=== PATIENT | male | born 1955 | race Hispanic/Latino ===

== ENCOUNTER → 2021-08-01 | Outpatient (CLI) | payer OTHER | END | disposition home or self-care (01) | LOC: SHCH 12:39 | PROVIDERS: ATTEND Internal Medicine | DX: I11.9 Hypertensive heart disease without heart failure (principal); I08.8 Other rheumatic multiple valve diseases; E11.9 Type 2 diabetes mellitus without complications; E78.5 Hyperlipidemia, unspecified | CPT/HCPCS: 93306 ==

== ENCOUNTER → 2022-07-28 | Outpatient (CLI) | payer OTHER ==
[~2022-07-28] VITALS: Ht 167.6 cm; Wt 75.8 kg
[~2022-07-28] MED LIST: AEC81 PO; AMLO-258 PO; ATOR40TA71 PO; BISA-151 PO; DULA1.5P SQ; ELTR50TA PO; EMPA1TAB7 PO; FERR-72 PO; HYDR25TA PO; ISOS30TA92 PO; LISI40TA9 PO; METO-391 PO; OMEP40CA21 PO
[2022-07-28 11:07] LABS: BASOPHILS % (AUTO) 0.2 % (0.0-5.0); EOSINOPHILS % (AUTO) 1.3 % (0.0-8.0); HEMATOCRIT 40.9 % (42-54); LYMPHOCYTES % (AUTO) 24.9 % (21.0-51.0); MEAN CORPUSCULAR HEMOGLOBIN 30.3 pg (27.0-33.0); MEAN CORPUSCULAR HGB CONC 33.7 g/dL (32.0-36.0); MEAN CORPUSCULAR VOLUME 89.9 fL (79-99); MONOCYTES % (AUTO) 5.4 % (3.0-13.0); PLATELET COUNT (AUTO) 72 K/uL (130-400); RED BLOOD CELL COUNT(AUTO) 4.55 MIL/uL (4.50-6.20); WHITE BLOOD COUNT (AUTO) 4.8 K/uL (4.8-10.8)
[2022-07-28 11:19] LABS: HEMOGLOBIN A1C 7.9 % (4.0-6.0)
[2022-07-28 11:21] LABS: ALBUMIN 3.3 g/dL (3.5-5.0); CREATININE 0.9 mg/dL (0.5-1.5); TOTAL PROTEIN, SERUM 7.5 g/dL (6.0-8.3)
[2022-07-28 11:25] LABS: INR 1.02 (0.85-1.15); PROTHROMBIN TIME 11.1 SEC (9.6-11.6)
[2022-07-28 11:29] LABS: ABG BASE EXCESS 0.7 mmol/L (-2.0-3.0); ABG HCO3 24.6 mmol/L (21.0-28.0); ABG OXYGEN SATURATION 97.7 % (95.0-99.0); ABG PCO2 37 mmHg (35-48)
[2022-07-28 11:42] LABS: B-TYPE NATRIURETIC PEPTIDE 95 pg/mL (0-100)
[2022-07-29 09:03] VITALS: BP 151/72
== END | disposition home or self-care (01) ==
LOC: DAH 10:00 → EDSTATUS 07-29 08:00
PROVIDERS: ATTEND Thoracic Surgery (Cardiothoracic Vascular Surgery)
DX: Z01.818 Encounter for other preprocedural examination (principal); I25.10 Atherosclerotic heart disease of native coronary artery without angina pectoris
CPT/HCPCS: 93880; 71045; 87426; 80061; 83036; 80053; 82803; 83880; 85025; 85610; 85730; 86850; 86900; 86901; 86923; 36415; 93005; 36600; 94010; 87641; A6260

== ENCOUNTER → 2022-09-17 | Outpatient (CLI) | payer OTHER ==
[~2022-09-17] MED LIST changes: -AEC81 PO; +ALBUMIN (HUMAN) 25% 200 ML IV ONE; -AMLO-258 PO; -ATOR40TA71 PO; -BISA-151 PO; -DULA1.5P SQ; -ELTR50TA PO; -EMPA1TAB7 PO; -FERR-72 PO; -HYDR25TA PO; -ISOS30TA92 PO; -LISI40TA9 PO; -METO-391 PO; -OMEP40CA21 PO
[2022-09-17 10:38] LABS: EOSINOPHILS % (AUTO) 2.2 % (0.0-8.0); HEMATOCRIT 38.5 % (42-54); LYMPHOCYTES % (AUTO) 22.2 % (21.0-51.0); MEAN CORPUSCULAR HEMOGLOBIN 28.2 pg (27.0-33.0); MEAN CORPUSCULAR HGB CONC 31.9 g/dL (32.0-36.0); MEAN CORPUSCULAR VOLUME 88.3 fL (79-99); MONOCYTES % (AUTO) 6.9 % (3.0-13.0); NEUTROPHILS % (AUTO) 68.5 % (40.0-77.0); PLATELET COUNT (AUTO) 216 K/uL (130-400); RED BLOOD CELL COUNT(AUTO) 4.36 MIL/uL (4.50-6.20); RED CELL DISTRIBUTION WIDTH 13.5 % (11.0-15.5); WHITE BLOOD COUNT (AUTO) 4.2 K/uL (4.8-10.8)
[2022-09-17 10:53] LABS: CREATININE 0.8 mg/dL (0.5-1.5)
[2022-09-17 10:58] LABS: INR 1.05 (0.85-1.15); PROTHROMBIN TIME 11.4 SEC (9.6-11.6)
[2022-09-17 10:59] LABS: PARTIAL THROMBOPLASTIN TIME 30.7 SEC (26.3-35.5)
== END | disposition home or self-care (01) ==
LOC: RAH 08:45
PROVIDERS: ATTEND Internal Medicine Gastroenterology
DX: Z01.818 Encounter for other preprocedural examination (principal); J90 Pleural effusion, not elsewhere classified; J98.11 Atelectasis; R18.8 Other ascites; Z98.890 Other specified postprocedural states
CPT/HCPCS: 36415; 71046; 76705; 80053; 85025; 85610; 85730; P9046

== ENCOUNTER → 2022-09-25 | Outpatient (CLI) | payer OTHER | END | disposition home or self-care (01) | LOC: RAH 06:49 | PROVIDERS: ATTEND Internal Medicine Gastroenterology | DX: R10.13 Epigastric pain (principal) | CPT/HCPCS: 78264; A9541 ==

== ENCOUNTER → 2022-10-27 | Outpatient (CLI) | payer OTHER ==
[2022-10-27 12:49] LABS: EOSINOPHILS % (AUTO) 2.1 % (0.0-8.0); HEMATOCRIT 37.1 % (42-54); LYMPHOCYTES % (AUTO) 25.7 % (21.0-51.0); MEAN CORPUSCULAR HEMOGLOBIN 27.2 pg (27.0-33.0); MEAN CORPUSCULAR HGB CONC 31.3 g/dL (32.0-36.0); MEAN CORPUSCULAR VOLUME 86.9 fL (79-99); MONOCYTES % (AUTO) 6.3 % (3.0-13.0); NEUTROPHILS % (AUTO) 65.7 % (40.0-77.0); PLATELET COUNT (AUTO) 106 K/uL (130-400); RED BLOOD CELL COUNT(AUTO) 4.27 MIL/uL (4.50-6.20); RED CELL DISTRIBUTION WIDTH 15.5 % (11.0-15.5); WHITE BLOOD COUNT (AUTO) 4.8 K/uL (4.8-10.8)
[2022-10-27 12:53] LABS: INR 0.99 (0.85-1.15); PROTHROMBIN TIME 10.8 SEC (9.6-11.6)
[2022-10-27 12:54] LABS: POTASSIUM 4.6 mmol/L (3.5-5.1)
== END | disposition home or self-care (01) ==
LOC: LAB 09:44
PROVIDERS: ATTEND Internal Medicine
DX: K62.5 Hemorrhage of anus and rectum (principal)
CPT/HCPCS: 36415; 80048; 85025; 85610

== ENCOUNTER → 2023-01-08 | Outpatient (CLI) | payer OTHER | END | disposition home or self-care (01) | LOC: RAH 10:12 | PROVIDERS: ATTEND Internal Medicine | DX: K74.60 Unspecified cirrhosis of liver (principal); D73.2 Chronic congestive splenomegaly; R18.8 Other ascites; R06.02 Shortness of breath | CPT/HCPCS: 71250 ==

== ENCOUNTER → 2023-02-05 | Outpatient (CLI) | payer OTHER | END | disposition home or self-care (01) | LOC: SHCH 10:34 | PROVIDERS: ATTEND Internal Medicine | DX: I08.2 Rheumatic disorders of both aortic and tricuspid valves (principal); E11.9 Type 2 diabetes mellitus without complications; E78.5 Hyperlipidemia, unspecified | CPT/HCPCS: 93306 ==

== ENCOUNTER → 2023-09-24 | Outpatient (CLI) | payer OTHER ==
[~2023-09-24] MED LIST changes: -ALBUMIN (HUMAN) 25% 200 ML IV ONE; +IOHEXOL 350 MG/ML 100ML INFUS..BTL IV ONE
== END | disposition home or self-care (01) ==
LOC: RAH 10:45
PROVIDERS: ATTEND Internal Medicine Gastroenterology
DX: R16.1 Splenomegaly, not elsewhere classified (principal); R10.9 Unspecified abdominal pain; R18.8 Other ascites; J90 Pleural effusion, not elsewhere classified
CPT/HCPCS: 74178; Q9967

== ENCOUNTER → 2023-12-04 | Outpatient (CLI) | payer OTHER ==
[~2023-12-04] MED LIST changes: +ALBUMIN (HUMAN) 25% 200 ML IV ONE; -IOHEXOL 350 MG/ML 100ML INFUS..BTL IV ONE
[2023-12-04 10:14] LABS: EOSINOPHILS # (AUTO) 0.05 K/uL (0.00-0.70); EOSINOPHILS % (AUTO) 1.7 % (0.0-8.0); HEMATOCRIT 33.6 % (42-54); IMMATURE GRANULOCYTE ABSOLUTE 0.01 K/uL (0-1); LYMPHOCYTES # (AUTO) 0.6 K/uL (1.0-4.8); LYMPHOCYTES % (AUTO) 20.8 % (21.0-51.0); MEAN CORPUSCULAR VOLUME 90.8 fL (79-99); MONOCYTES # (AUTO) 0.3 K/uL (0.1-1.0); MONOCYTES % (AUTO) 8.4 % (3.0-13.0); NEUTROPHILS # (AUTO) 2.1 K/uL (1.8-7.7); NEUTROPHILS % (AUTO) 68.8 % (40.0-77.0); PLATELET COUNT (AUTO) 91 K/uL (130-400); RED CELL DISTRIBUTION WIDTH 16.7 % (11.0-15.5)
[2023-12-04 10:28] LABS: INR 1.01 (0.85-1.15); PROTHROMBIN TIME 11.9 SEC (9.6-11.6)
[2023-12-04 10:30] LABS: PARTIAL THROMBOPLASTIN TIME 29.6 SEC (26.3-35.5)
[2023-12-04 10:31] LABS: ALBUMIN 2.7 g/dL (3.5-5.0); CREATININE 1.1 mg/dL (0.5-1.3); POTASSIUM 4.2 mmol/L (3.5-5.1); TOTAL PROTEIN, SERUM 6.6 g/dL (6.0-8.3)
[2023-12-04 11:16] LABS: BAND NEUTROPHILS % (MANUAL) 2 % (0-2); EOSINOPHILS % (MANUAL) 2 % (1-6); LYMPHOCYTES % (MANUAL) 34 % (22-44); MONOCYTES % (MANUAL) 6 % (2-9); SEGMENTED NEUTROPHILS % 56 % (40-70); TOTAL CELLS COUNTED 100
[2023-12-04 11:17] LABS: MAN.DIFF COMMENT-IMPRESSION MANUAL DIFFERENTIAL
[2023-12-04 11:18] LABS: PLATELET MORPHOLOGY COMMENT DECREASED; WBC MORPHOLOGY CONSISTENT W/DIFF
[2023-12-04 17:33] LABS: APPEARANCE BODY FLUID SLIGHTLY CLOUDY (CLEAR); COLOR,BODY FLUID YELLOW (LT YELLOW); SPECIMENTYPE,BODY FLUID ASCITES; TOTAL VOLUME,BODY FLUID 8200 mL
[2023-12-04 17:37] LABS: BODY FLUID RBC 0 /cu. mm.; BODY FLUID WBC 164 /cu. mm.
[2023-12-04 17:41] LABS: ALBUMIN,BODY FLUID 0.6 g/dL
[2023-12-04 17:46] LABS: TOTAL PROTEIN,BODY FLUID < 2.0 g/dL
[2023-12-04 18:15] LABS: BF LYMPHOCYTE 68 %; BF MESOTHELIAL 6 %; BF MONOCYTE 2 %; BF TOTAL CELLS COUNTED 100
== END | disposition home or self-care (01) ==
LOC: RAH 08:48
PROVIDERS: ATTEND Internal Medicine
DX: K70.31 Alcoholic cirrhosis of liver with ascites (principal); I85.10 Secondary esophageal varices without bleeding; I10 Essential (primary) hypertension; E11.9 Type 2 diabetes mellitus without complications; K21.9 Gastro-esophageal reflux disease without esophagitis; K59.04 Chronic idiopathic constipation; K57.30 Diverticulosis of large intestine without perforation or abscess without bleeding; J44.9 Chronic obstructive pulmonary disease, unspecified; I25.10 Atherosclerotic heart disease of native coronary artery without angina pectoris; Z98.890 Other specified postprocedural states; Z86.010 Personal history of colon polyps; Z79.4 Long term (current) use of insulin; Z79.82 Long term (current) use of aspirin; Z79.01 Long term (current) use of anticoagulants; Z79.899 Other long term (current) drug therapy
CPT/HCPCS: 49083; 84157; 80053; 85025; 89051; 85610; 85730; 87071; 87076; 87205; 82042; 36415; 88305; 88112; P9046; C1729

== ENCOUNTER → 2024-01-07 | Outpatient (CLI) | payer OTHER ==
[2024-01-07 08:56] LABS: EOSINOPHILS # (AUTO) 0.07 K/uL (0.00-0.70); HEMATOCRIT 32.5 % (42-54); IMMATURE GRANULOCYTE ABSOLUTE 0.01 K/uL (0-1); LYMPHOCYTES # (AUTO) 0.7 K/uL (1.0-4.8); LYMPHOCYTES % (AUTO) 20.1 % (21.0-51.0); MEAN CORPUSCULAR HGB CONC 32.9 g/dL (32.0-36.0); MEAN CORPUSCULAR VOLUME 94.2 fL (79-99); MONOCYTES # (AUTO) 0.2 K/uL (0.1-1.0); NEUTROPHILS # (AUTO) 2.5 K/uL (1.8-7.7); NEUTROPHILS % (AUTO) 71.6 % (40.0-77.0); PLATELET COUNT (AUTO) 81 K/uL (130-400); RED BLOOD CELL COUNT(AUTO) 3.45 MIL/uL (4.50-6.20); RED CELL DISTRIBUTION WIDTH 14.9 % (11.0-15.5); WHITE BLOOD COUNT (AUTO) 3.5 K/uL (4.8-10.8)
[2024-01-07 09:08] LABS: ALBUMIN 2.7 g/dL (3.5-5.0); BILIRUBIN,TOTAL 0.9 mg/dL (0.2-1.0); CREATININE 1.1 mg/dL (0.5-1.3); POTASSIUM 5.1 mmol/L (3.5-5.1); TOTAL PROTEIN, SERUM 6.7 g/dL (6.0-8.3)
[2024-01-07 09:28] LABS: INR 1.06 (0.85-1.15); PROTHROMBIN TIME 12.4 SEC (9.6-11.6)
[2024-01-07 13:26] LABS: ALBUMIN,BODY FLUID 0.6 g/dL
[2024-01-07 13:42] LABS: TOTAL PROTEIN,BODY FLUID < 2.0 g/dL
[2024-01-07 14:06] LABS: APPEARANCE BODY FLUID CLEAR (CLEAR); SPECIMENTYPE,BODY FLUID ASCITES
[2024-01-07 14:07] LABS: COLOR,BODY FLUID YELLOW (LT YELLOW); TOTAL VOLUME,BODY FLUID 6000 mL
[2024-01-07 14:32] LABS: BF LYMPHOCYTE 55 %; BF MACROPHAGE 1; BF MESOTHELIAL 18 %; BF MONOCYTE 11 %; BF OTHER CELLS 5; BF TOTAL CELLS COUNTED 100
[2024-01-07 14:42] LABS: BODY FLUID RBC 154 /cu. mm.; BODY FLUID WBC 154 /cu. mm.
== END | disposition home or self-care (01) ==
LOC: RAH 08:22
PROVIDERS: ATTEND Internal Medicine Gastroenterology
DX: K70.31 Alcoholic cirrhosis of liver with ascites (principal); E11.9 Type 2 diabetes mellitus without complications; I25.10 Atherosclerotic heart disease of native coronary artery without angina pectoris; Z86.010 Personal history of colon polyps; Z98.890 Other specified postprocedural states; K21.9 Gastro-esophageal reflux disease without esophagitis; I85.10 Secondary esophageal varices without bleeding; K59.04 Chronic idiopathic constipation; K44.9 Diaphragmatic hernia without obstruction or gangrene; K57.30 Diverticulosis of large intestine without perforation or abscess without bleeding; Z79.01 Long term (current) use of anticoagulants; Z79.82 Long term (current) use of aspirin; Z79.899 Other long term (current) drug therapy
CPT/HCPCS: 49083; 84157; 80053; 85025; 89051; 85610; 85730; 87071; 87205; 82042; 36415; 88305; 88112; P9046; C1729; 96365

== ENCOUNTER → 2024-02-18 | Outpatient (CLI) | payer OTHER | END | disposition home or self-care (01) | LOC: RAH 08:50 | PROVIDERS: ATTEND Internal Medicine Gastroenterology | DX: R13.10 Dysphagia, unspecified (principal) | CPT/HCPCS: 74220 ==

== ENCOUNTER → 2024-03-03 | Outpatient (CLI) | payer OTHER | END | disposition home or self-care (01) | LOC: RAH 08:27 | PROVIDERS: ATTEND Internal Medicine Gastroenterology | DX: K76.89 Other specified diseases of liver (principal); R16.1 Splenomegaly, not elsewhere classified | CPT/HCPCS: 76700 ==

== ENCOUNTER → 2024-04-21 | Outpatient (CLI) | payer OTHER ==
[2024-04-21 10:09] LABS: INR 1.21 (0.85-1.15); PROTHROMBIN TIME 12.9 SEC (9.6-11.6)
[2024-04-21 10:11] LABS: PARTIAL THROMBOPLASTIN TIME 30.9 SEC (26.3-35.5)
[2024-04-21 15:32] LABS: BODY FLUID RBC 0 /cu. mm.; BODY FLUID WBC 75 /cu. mm.
[2024-04-21 15:55] LABS: APPEARANCE BODY FLUID SLIGHTLY CLOUDY (CLEAR); COLOR,BODY FLUID YELLOW (LT YELLOW); SPECIMENTYPE,BODY FLUID ASCITES; TOTAL VOLUME,BODY FLUID 9800 mL
[2024-04-21 15:58] LABS: BF LYMPHOCYTE 76 %; BF MONOCYTE 11 %; BF TOTAL CELLS COUNTED 100
== END | disposition home or self-care (01) ==
LOC: RAH 09:19
PROVIDERS: ATTEND Internal Medicine Gastroenterology
DX: R18.8 Other ascites (principal); K74.60 Unspecified cirrhosis of liver; K21.9 Gastro-esophageal reflux disease without esophagitis; I25.10 Atherosclerotic heart disease of native coronary artery without angina pectoris; I12.9 Hypertensive chronic kidney disease with stage 1 through stage 4 chronic kidney disease, or unspecified chronic kidney disease; E11.22 Type 2 diabetes mellitus with diabetic chronic kidney disease; N18.9 Chronic kidney disease, unspecified; M19.90 Unspecified osteoarthritis, unspecified site; Z95.1 Presence of aortocoronary bypass graft; Z87.891 Personal history of nicotine dependence; Z79.82 Long term (current) use of aspirin; Z79.899 Other long term (current) drug therapy
CPT/HCPCS: 49083; 89051; 85610; 85730; 36415; P9046; C1729; 96365

== ENCOUNTER → 2024-05-26 | Outpatient (CLI) | payer OTHER ==
[2024-05-26 09:36] LABS: INR 1.14 (0.85-1.15); PROTHROMBIN TIME 12.2 SEC (9.6-11.6)
[2024-05-26 09:37] LABS: PARTIAL THROMBOPLASTIN TIME 31.2 SEC (26.3-35.5)
[2024-05-26 17:01] LABS: APPEARANCE BODY FLUID CLEAR (CLEAR); COLOR,BODY FLUID LT YELLOW (LT YELLOW); SPECIMENTYPE,BODY FLUID ASCITES; TOTAL VOLUME,BODY FLUID 9500 mL
[2024-05-26 17:08] LABS: BODY FLUID RBC 0 /cu. mm.; BODY FLUID WBC 175 /cu. mm.
[2024-05-26 17:27] LABS: BF EOSINOPHIL 1 %; BF LYMPHOCYTE 54 %; BF MACROPHAGE 39; BF MESOTHELIAL 1 %; BF TOTAL CELLS COUNTED 100
--- NOTE | 2024-05-30 09:57 | HMCIMG ---
US ABDOMINAL PARACENTESIS IR REASON: ASCITES TECHNIQUE: Paracentesis was performed with ultrasound guidance. The puncture site was selected in the Right lower quadrant and overlying skin prepped and draped in a sterile fashion. 1% Xylocaine infiltration was performed. Catheter was placed in the fluid using trocar technique. 9.5 L were removed. Fluid sample was submitted for laboratory evaluation. The patient showed no evidence of complication during the procedure. IMPRESSION: 1. Ultrasound-guided paracentesis.
== END | disposition home or self-care (01) ==
LOC: RAH 07:36
PROVIDERS: ATTEND Internal Medicine Gastroenterology
DX: R18.8 Other ascites (principal); K74.60 Unspecified cirrhosis of liver; I25.10 Atherosclerotic heart disease of native coronary artery without angina pectoris; I12.9 Hypertensive chronic kidney disease with stage 1 through stage 4 chronic kidney disease, or unspecified chronic kidney disease; E11.22 Type 2 diabetes mellitus with diabetic chronic kidney disease; N18.9 Chronic kidney disease, unspecified; K21.9 Gastro-esophageal reflux disease without esophagitis; M19.90 Unspecified osteoarthritis, unspecified site; E78.5 Hyperlipidemia, unspecified; Z87.891 Personal history of nicotine dependence; Z95.1 Presence of aortocoronary bypass graft; Z79.82 Long term (current) use of aspirin; Z79.899 Other long term (current) drug therapy
CPT/HCPCS: 49083; 89051; 85610; 85730; 87071; 87205; 36415; C1729

== ENCOUNTER → 2024-06-23 | Outpatient (CLI) | payer OTHER ==
[~2024-06-23] MED LIST changes: -ALBUMIN (HUMAN) 25% 200 ML IV ONE; +ALBUMIN HUMAN 25% 200 ML IV ONE
--- NOTE | 2024-06-23 10:45 | NUR ---
U/S GD PARACENTESIS PROCEDURE PERFORMED BY DR Gonzalo YU. PUNCTURE SITE RLQ AND PATIENT TOLERATED PROCEDURE WELL. TOTAL REMOVED 9.5 LITERS OF CLOUDY YELLOW FLUID ALBUMIN 25% 50 GRAMS IV GIVEN DURING PROCEDURE. SPECIMEN SENT TO LAB. END OF PROCEDURE AT 1015. CATHETER REMOVED AND DRESSING APPLIED. NO BLEEDING NOTED. DISCHARGE INSTRUCTIONS GIVEN TO PATIENT AND VERBALIZED UNDERSTANDING. DISCHARGED VIA AMBULATION AT 1045. AAO X3 WITH NO C/O PAIN.
--- NOTE | 2024-06-23 12:34 | HMCIMG ---
US ABDOMINAL PARACENTESIS IR HISTORY: Ascites COMPARISON: None TECHNIQUE: Informed consent was obtained. Risks and benefits were explained to the patient. A timeout was performed. Patient was prepped and draped in a sterile fashion. Local anesthetics was given as required. Under ultrasound guidance, ascites fluid was localized. Paracentesis was performed. FINDINGS: 9.5 L of yellowish fluid was aspirated. Less than 2 cc blood loss is noted. Patient tolerated procedure without complication. Patient left the department in good condition. IMPRESSION: 1. Uncomplicated ultrasound guidance paracentesis.
[2024-06-23 13:11] LABS: APPEARANCE BODY FLUID SLIGHTLY CLOUDY (CLEAR); COLOR,BODY FLUID YELLOW (LT YELLOW); SPECIMENTYPE,BODY FLUID ASCITES; TOTAL VOLUME,BODY FLUID 9500 mL
[2024-06-23 14:08] LABS: BODY FLUID RBC 84 /cu. mm.; BODY FLUID WBC 214 /cu. mm.
[2024-06-23 15:05] LABS: BF LYMPHOCYTE 26 %; BF MACROPHAGE 64; BF OTHER CELLS 2; BF TOTAL CELLS COUNTED 100
== END ==
LOC: RAH 08:56
PROVIDERS: ATTEND Internal Medicine Gastroenterology
DX: R18.8 Other ascites (principal); K74.60 Unspecified cirrhosis of liver; I25.10 Atherosclerotic heart disease of native coronary artery without angina pectoris; K21.9 Gastro-esophageal reflux disease without esophagitis; I12.9 Hypertensive chronic kidney disease with stage 1 through stage 4 chronic kidney disease, or unspecified chronic kidney disease; E11.22 Type 2 diabetes mellitus with diabetic chronic kidney disease; N18.9 Chronic kidney disease, unspecified; M19.90 Unspecified osteoarthritis, unspecified site; Z87.891 Personal history of nicotine dependence; Z79.82 Long term (current) use of aspirin; Z95.1 Presence of aortocoronary bypass graft; Z79.899 Other long term (current) drug therapy
CPT/HCPCS: 49083; 89051; 87071; 87205; P9046; C1729; 96365

== ENCOUNTER 2024-07-19 09:31 | Emergency (ER) | payer OTHER ==
[~2024-07-19] VITALS: Ht 167.6 cm; Wt 74.8 kg
--- NOTE | 2024-07-19 10:22 | EKG ---
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
--- NOTE | 2024-07-19 10:29 | HMCIMG ---
CHEST 1VW REASON: sob COMPARISON: 01/08/2023 FINDINGS: Single view of the chest was obtained. Lungs are clear. Heart size is normal. There is no pulmonary vascular congestion. Mediastinum and bony thorax appear unremarkable. There is been a previous median sternotomy. IMPRESSION: 1. No acute finding, no change.
--- NOTE | 2024-07-19 10:33 | ERN ---
ED Note History of Present Illness Stated Complaint: ABDOMINAL PAIN Chief Complaint: Abdominal Pain Time Seen by MD: 09:33 Dictation: This 68-year-old male with a history of cirrhosis of the liver presents in the emergency department with a gradual onset of increasing abdominal distention resulting in nausea, shortness of breath and decreased ability to do activities of daily living. He is unable to eat and developed severe nausea when he tries due to abdominal distention. He is having ankle swelling, orthopnea, and dyspnea with the exertion. He is unaware of fever. He is not passing any black or bloody stool. He has not had hematemesis he denies ear nose or throat symptoms or chest pressure other than that created by did a severe abdominal distention. He did have a paracentesis back in the 23 of June and is scheduled to follow up with the specialist next week but is unable to tolerate the abdominal distention today. The patient has a history of diabetes and hypertension has had coronary artery bypass grafting. He does not not smoke drink or use recreational drugs in his here with his Allergies: Coded Allergies: No Known Drug Allergies (Unverified Allergy, Unknown, 08/01/21) Home Meds No Active Prescriptions or Reported Meds Past Medical History Past Medical History: CAD, Diabetes-Type II, Heart Disease, Hypertension Additional Past Medical Hx: CIRRHOSIS Surgical History: CABG Review of System Dictation All pertinent systems reviewed, negative except as documented in the HPI The ROS is obtained from patient and GENERAL/CONSTITUTIONAL: Negative except as documented in HPI. ENT: Negative except as documented in HPI. CARDIOVASCULAR: Negative except as documented in HPI. RESPIRATORY: Negative except as documented in HPI. GASTROINTESTINAL: Negative except as documented in HPI. GENITOURINARY: Negative except as documented in HPI. MUSCULOSKELETAL: Negative except as documented in HPI. SKIN: Negative except as documented in HPI. NEUROLOGIC: Negative except as documented in HPI. Initial Vital Sign VS Vital Signs Date Time Temp Pulse Resp B/P (MAP) Pulse Ox O2 Delivery O2 Flow Rate FiO2 07/19/24 09:34 96.1 73 20 128/61 100 Room Air 0 07/19/24 09:36 21 Physical Exam Dictation VITAL SIGNS: note is made of triage vital signs CONSTITUTIONAL: This is an elderly patient who is very distended with tense ascites but able to hold conversation and maintaining his vital signs HEAD: Normocephalic, Atraumatic. EYES: Periorbital areas with no swelling, redness, or edema. Lids and lashes are normal. Conjunctival injection is absent. Sclera anicteric. Pupils equal, round, reactive to light. ENT: No nasal discharge noted. Posterior pharynx is without exudate, redness, swelling, masses, or evidence of obstruction. Uvula midline. Mucous membranes moist. NECK: Trachea midline, no masses palpated, and no cervical lymphadenopathy. No swelling. Supple, full range of motion without nuchal rigidity. No vertebral point tenderness. No meningismus. CHEST/AXILLA: Normal chest wall appearance and motion. No tenderness. No crepitus. CV: Regular rhythm, 1+ pretibial edema and 2+ ankle edema RESPIRATORY:Respiratory rate is normal. Bilateral equal breath sounds with good airflow. Fine crackles are heard at the bases No increased work of breathing, no retractions. ABDOMEN: Massive distention of the abdomen with no tenderness or rebound. Dull on percussion consistent with the ascites BACK: Inspection is normal. No midline tenderness is appreciated. The patient appears comfortable when moving. : No CVA tenderness or bladder tenderness. SKIN: Warm, dry, with normal turgor. Capillary refill less than 3 seconds. Normal color.No rash. No cellulitis or abscess. No evidence of acute injury. MS/Extremity: There is no calf tenderness. Baseline range of motion is noted in all 4 extremities. There are no deformities. NEURO: Awake and alert, lucid. Facies symmetric and speech is clear. Motor strength 5/5 in all extremities. Sensory grossly intact. PSYCH: Patient is appropriately attentive and cooperative without evidence of hallucination. Results (Laboratory/Radiology) Laboratory/Radiology Laboratory Tests Test 07/19/24 10:13 White Blood Count 3.6 K/uL (4.8-10.8) L Red Blood Count 3.52 MIL/uL (4.50-6.20) L Hemoglobin 10.4 g/dL (14.0-18.0) L Hematocrit 31.3 % (42-54) L Mean Corpuscular Volume 88.9 fL (79-99) Mean Corpuscular Hemoglobin 29.5 pg (27.0-33.0) Mean Corpuscular Hemoglobin Concent 33.2 g/dL (32.0-36.0) Red Cell Distribution Width 15.2 % (11.0-15.5) Platelet Count 164 K/uL (130-400) Mean Platelet Volume 10.6 fL (7.5-10.5) H Immature Granulocyte % (Auto) 0.3 % (0-1) Neutrophils (%) (Auto) 72.3 % (40.0-77.0) Lymphocytes (%) (Auto) 16.2 % (21.0-51.0) L Monocytes (%) (Auto) 6.7 % (3.0-13.0) Eosinophils (%) (Auto) 4.2 % (0.0-8.0) Basophils (%) (Auto) 0.3 % (0.0-5.0) Neutrophils # (Auto) 2.6 K/uL (1.8-7.7) Lymphocytes # (Auto) 0.6 K/uL (1.0-4.8) L Monocytes # (Auto) 0.2 K/uL (0.1-1.0) Eosinophils # (Auto) 0.15 K/uL (0.00-0.70) Basophils # (Auto) 0.01 K/uL (0.00-0.20) Absolute Immature Granulocyte (auto 0.01 K/uL (0-1) Nucleated Red Blood Cells 0.0 % (0.0-0.19) Prothrombin Time 11.7 SEC (9.6-11.6) H Prothromb Time International Ratio 1.05 (0.85-1.15) Activated Partial Thromboplast Time 30.4 SEC (26.3-35.5) Sodium Level 139 mmol/L (136-145) Potassium Level 5.4 mmol/L (3.5-5.1) H Chloride Level 106 mmol/L (101-111) Carbon Dioxide Level 28 mmol/L (21-32) Blood Urea Nitrogen 14 mg/dL (7-18) Creatinine 1.0 mg/dL (0.5-1.3) Glomerular Filtration Rate Calc 81 mL/min (>90) Random Glucose 165 mg/dL (70-105) H Total Calcium 8.7 mg/dL (8.5-10.1) Total Bilirubin 1.1 mg/dL (0.2-1.0) H Aspartate Amino Transf (AST/SGOT) 22 U/L (10-37) Alanine Aminotransferase (ALT/SGPT) 19 U/L (12-78) Alkaline Phosphatase 115 U/L (50-136) Total Protein 6.3 g/dL (6.0-8.3) Albumin 2.5 g/dL (3.5-5.0) L Labs Reviewed?: Yes EKG Comment: Time reviewed: 10:11 a.m. EKG number; 1 Rate and rhythm: Sinus arrhythmia at 71 beats per minute [place]: -10 Morphology: Very marked low voltage FL interval: normal QT interval: normal ST/Twaves: normal Impression: normal sinus rhythm without STEMI or ectopy Comparison EKG: none EKG INTERPRETATION by Dr. Jose J Harris ED Course ED Course Orders Procedure Category Date Status Time Comprehensive LAB 07/19/24 Complete Metabolic Panel 10:00 Cbc With Differential LAB 07/19/24 Complete 10:00 Pt And Ptt LAB 07/19/24 Complete 10:00 Chest 1vw RAD 07/19/24 Resulted 10:00 12 Lead Ekg Tracing- EKG 07/19/24 Complete Technical 10:00 Us Abdominal US 07/19/24 Resulted Paracentesis Ir 10:52 Albumin Human 25% PHA 07/19/24 Complete ([place]) 12:46 Albumin Human 25% PHA 07/19/24 In Process ([place]) 13:00 Current Medications Medications (Trade) Dose Ordered Sig/Dandre Route PRN Reason Start Time Stop Time Status Last Admin Dose Admin Albumin Human 100 ml @ 0 mls/hr AD IV 07/19/24 13:00 08/18/24 12:59 Albumin Human 200 ml @ As Directed STK-MED ONCE IV 07/19/24 12:46 07/19/24 12:47 DC Vital Signs Date Time Temp Pulse Resp B/P (MAP) Pulse Ox O2 Delivery O2 Flow Rate FiO2 07/19/24 12:31 97.5 71 16 123/53 100 Room Air* 0 21 07/19/24 09:36 96.6 73 20 128/61 100 Room Air* 0 21 07/19/24 09:34 96.1 73 20 128/61 100 Room Air 0 Medical Decision Making MDM INITIAL IMPRESSION Initial history and physical concerning for tense ascites with respiratory compromise secondary to the ascites. I do not suspect severe systemic volume overload or infection. He is alert and lucid and I do not suspect hepatic encephalopathy or GI bleed Contributing medical problems: None I have reviewed the triage nursing notes and vital signs. The patient is afebrile with acceptable oxygen saturation, heart rate and blood pressure. Initial plan: We will try to and arrange a paracentesis for today DATA REVIEW I have reviewed additional NN, repeat VS, and monitoring where indicated. Heart rate, blood pressure, and O2 saturation are acceptable. Pretty diagnostic results: Labs are consistent with cirrhosis. Other independent historian: none Review of external data: None. ED COURSE Interventions: The patient had paracentesis with removal of 11 L of fluid. Reassessment: He reports the shortness of breath and discomfort has completely resolved. He is currently receiving his albumin and will be discharged when that infusion is complete. DISPOSITION Final diagnostic impression: Tense ascites secondary to cirrhosis I discussed my findings, clinical impression and treatment recommendations with the patient. I have reviewed the social factors contributing to the patient's presentation and disposition planning. My final plan for disposition was made based upon clinical findings, response to treatment and discussion with the patient regarding management options. IR kindly consented to do a paracentesis on this patient Hospitalization is not indicated due to low risk of short term progression, complication, morbidity or mortality related to the current diagnosis At the time of discharge, the vital signs are within acceptable limits. Repeat examination: Benign abdomen, now flat Patient has been able to take oral liquids. The discharge treatment plan includes continuation of usual home medications Incidental findings discussed: none Questions were invited and answered in layman's terms. I have emphasized my follow-up recommendations and reviewed ED return pre cautions. I have answered any questions in layman's terms. The patient understands that they will have to arrange for out-patient follow-up for recheck of today's condition. The patient is stable and appropriate for discharge from the ED. This dictation was prepared using [employer] voice recognition software. Occasional voice recognition errors may occur. When identified, these errors have been corrected. While every attempt is made to correct errors during dictation, errors may still exist. DX & DISP Disposition: Discharge Decision to Admit Date: Jul 19, 2024 Decision to Admit Time: 13:00 Departure Impression: Primary Impression: Tense ascites Additional Impression: Cirrhosis of liver Condition: Stable Scripts No Active Prescriptions or Reported Meds Additional Instructions: Continue your usual medications and keep all of your regular appointments as scheduled Return for fever or signs of internal bleeding Referrals: JOHN KATHLEEN MD (PCP) Time of Disposition: 13:02 JOSE J HARRIS MD Jul 19, 2024 10:33
[2024-07-19 10:57] LABS: BASOPHILS # (AUTO) 0.01 K/uL (0.00-0.20); BASOPHILS % (AUTO) 0.3 % (0.0-5.0); EOSINOPHILS # (AUTO) 0.15 K/uL (0.00-0.70); EOSINOPHILS % (AUTO) 4.2 % (0.0-8.0); HEMATOCRIT 31.3 % (42-54); IMMATURE GRANULOCYTE ABSOLUTE 0.01 K/uL (0-1); LYMPHOCYTES # (AUTO) 0.6 K/uL (1.0-4.8); LYMPHOCYTES % (AUTO) 16.2 % (21.0-51.0); MEAN CORPUSCULAR HEMOGLOBIN 29.5 pg (27.0-33.0); MEAN CORPUSCULAR HGB CONC 33.2 g/dL (32.0-36.0); MEAN CORPUSCULAR VOLUME 88.9 fL (79-99); MONOCYTES # (AUTO) 0.2 K/uL (0.1-1.0); MONOCYTES % (AUTO) 6.7 % (3.0-13.0); NEUTROPHILS # (AUTO) 2.6 K/uL (1.8-7.7); NEUTROPHILS % (AUTO) 72.3 % (40.0-77.0); PLATELET COUNT (AUTO) 164 K/uL (130-400); RED BLOOD CELL COUNT(AUTO) 3.52 MIL/uL (4.50-6.20); RED CELL DISTRIBUTION WIDTH 15.2 % (11.0-15.5); WHITE BLOOD COUNT (AUTO) 3.6 K/uL (4.8-10.8)
[2024-07-19 11:08] LABS: INR 1.05 (0.85-1.15); PROTHROMBIN TIME 11.7 SEC (9.6-11.6)
[2024-07-19 11:09] LABS: POTASSIUM 5.4 mmol/L (3.5-5.1)
--- NOTE | 2024-07-19 11:09 | NUR ---
PT TO IR FOR PARACENTESIS AT THIS TIME.
[2024-07-19 11:10] LABS: PARTIAL THROMBOPLASTIN TIME 30.4 SEC (26.3-35.5)
[2024-07-19 11:16] LABS: ALBUMIN 2.5 g/dL (3.5-5.0); BILIRUBIN,TOTAL 1.1 mg/dL (0.2-1.0); TOTAL PROTEIN, SERUM 6.3 g/dL (6.0-8.3)
--- NOTE | 2024-07-19 12:00 | NUR ---
ULTRASOUND GUIDED PARACENTESIS PROCEDURE PERFORMED BY DR. Juliette NAIR. PUNCTURE SITE RLQ AND PATIENT TOLERATED PROCEDURE WELL. TOTAL REMOVED 11.0 LITERS OF CLOUDY, YELLOW FLUID. END OF PROCEDURE AT 1140. CATHETER REMOVED AND DRESSING APPLIED- NO BLEEDING NOTED. REPORT CALLED TO MILY Shahid RN AND PATIENT TRANSFERRED BACK TO ED- ALERT AND ORIENTED WITH NO C/O PAIN. ALBUMIN TO BE ADMINISTERED IN ED.
--- NOTE | 2024-07-19 12:18 | NUR ---
RETURNED FROM PARACENTESIS PROCEUDRE. 11L TAKEN OUT AND PUNCTURE SITE RLQ DRESSING INTACT,CLEAN AND DRY, V/S STABLE, PT TOLERATED WELL. PER IR NURSE PT IS PENDING ALBUMIN 50G IV.
--- NOTE | 2024-07-19 12:44 | HMCIMG ---
US ABDOMINAL PARACENTESIS IR REASON: ACITES TECHNIQUE: Paracentesis was performed with ultrasound guidance. The puncture site was selected in the right upper quadrant and overlying skin prepped and draped in a sterile fashion. 1% Xylocaine infiltration was performed. Catheter was placed in the fluid using trocar technique. 11 L were removed. Fluid sample was submitted for laboratory evaluation. The patient showed no evidence of complication during the procedure. IMPRESSION: 1. Ultrasound-guided paracentesis.
[2024-07-19] MEDS: ALBUMIN HUMAN 25% 200 ML IV ONE (12:58)
[2024-07-19] MEDS: ALBUMIN HUMAN 25% 100 ML IV SCH (12:58)
[2024-07-19 14:00] VITALS: BP 113/62; PULSE 70; RESP 18; TEMP 97.7; O2SAT 100
== END 2024-07-19 14:13 | disposition home or self-care (01) ==
LOC: EDH 09:31
DX: R18.8 Other ascites (principal); K74.60 Unspecified cirrhosis of liver; I25.10 Atherosclerotic heart disease of native coronary artery without angina pectoris; E11.9 Type 2 diabetes mellitus without complications; I10 Essential (primary) hypertension; Z95.1 Presence of aortocoronary bypass graft
CPT/HCPCS: 49083; 99285; 96365; 71045; 80053; 85025; 85610; 85730; 36415; 93005; P9046; C1729

== ENCOUNTER 2024-08-13 10:18 | Inpatient (IN) | payer OTHER ==
[~2024-08-13] VITALS: Ht 167.6 cm; Wt 67.1 kg
--- NOTE | 2024-08-13 10:33 | ERN ---
General Chief Complaint: Altered Mental Status Stated Complaint: AMS,BODY SHAKING Time Seen by MD: 10:18 History of Present Illness Initial Comments 68-year-old male brought in by his co-worker for altered mentation. According to the co-worker, the patient was normally alert and oriented. This morning when he showed up for work about 5 hours ago he was confused, he was slow to respond, and he is not answering questions appropriately. No focal neurologic deficits. Patient denies any complaints at this time. Of note, the showed up with the hospital here and reports that he does have a history of cirrhosis. He had a T IPS procedure two weeks ago in [place]. Allergies: Coded Allergies: No Known Allergies (Unverified Allergy, Unknown, 08/13/24) No Known Drug Allergies (Unverified Allergy, Unknown, 08/01/21) Home Meds No Active Prescriptions or Reported Meds Past Medical History Past Medical History: CAD, Diabetes-Type II, Heart Disease, Hypertension Medical History Other: CIRRHOSIS Past Surgical History: CABG DX & DISP Departure Condition: Stable Scripts No Active Prescriptions or Reported Meds Referrals: JOHN KATHLEEN MD (PCP) REBECCA PIRES DO Aug 13, 2024 10:33
[2024-08-13 10:54] LABS: BASOPHILS # (AUTO) 0.01 K/uL (0.00-0.20); BASOPHILS % (AUTO) 0.2 % (0.0-5.0); EOSINOPHILS # (AUTO) 0.01 K/uL (0.00-0.70); EOSINOPHILS % (AUTO) 0.2 % (0.0-8.0); HEMATOCRIT 29.5 % (42-54); IMMATURE GRANULOCYTE ABSOLUTE 0.01 K/uL (0-1); LYMPHOCYTES # (AUTO) 0.3 K/uL (1.0-4.8); LYMPHOCYTES % (AUTO) 7.3 % (21.0-51.0); MEAN CORPUSCULAR HGB CONC 34.9 g/dL (32.0-36.0); MONOCYTES # (AUTO) 0.2 K/uL (0.1-1.0); MONOCYTES % (AUTO) 4.1 % (3.0-13.0); NEUTROPHILS # (AUTO) 3.9 K/uL (1.8-7.7); PLATELET COUNT (AUTO) 110 K/uL (130-400); RED BLOOD CELL COUNT(AUTO) 3.43 MIL/uL (4.50-6.20); RED CELL DISTRIBUTION WIDTH 15.7 % (11.0-15.5); WHITE BLOOD COUNT (AUTO) 4.4 K/uL (4.8-10.8)
[2024-08-13 11:07] LABS: INR 1.2 (0.85-1.15); PROTHROMBIN TIME 13.2 SEC (9.6-11.6)
[2024-08-13 11:08] LABS: PARTIAL THROMBOPLASTIN TIME 33.6 SEC (26.3-35.5)
--- NOTE | 2024-08-13 11:15 | HMCIMG ---
CT HEAD WITHOUT CONTRAST INDICATION: Altered mental status TECHNIQUE: Noncontrast axial helical CT images from the vertex through the skull base using 5 mm slice thickness without contrast material. CT was performed with one or more of the following dose reduction techniques: Automated exposure control, adjustment of the mA and/or kV according to patient size, or use of iterative reconstruction technique. COMPARISON: None FINDINGS: The cerebral and cerebellar hemispheres are age-appropriate in appearance. No evidence for abnormal extra-axial fluid collections or masses. The ventricles and sulci are normal in size and configuration. No evidence for intracranial parenchymal, epidural, or subdural hemorrhage, mass effect or midline shift. The villarreal-white matter differentiation is well preserved. No secondary evidence to suggest acute ischemia. The brainstem and cerebellum appear normal. The visualized orbits appear unremarkable. The visible paranasal sinuses and mastoid air cells are clear. The calvarium appears normal. IMPRESSION: No acute intracranial process identified.
[2024-08-13 12:09] LABS: ALCOHOL, BLOOD < 3 mg/dL (0-10)
[2024-08-13 12:11] LABS: AMMONIA 140 umol/L (11-32)
[2024-08-13 12:27] LABS: CARBON DIOXIDE 23 mmol/L (21-32); CHLORIDE 110 mmol/L (101-111); CREATINE KINASE, TOTAL 46 U/L (21-232); CREATININE 1.2 mg/dL (0.5-1.3); GLOMERULAR FILTR. RATE CALC 65 mL/min (>90); GLUCOSE,RANDOM 137 mg/dL (70-105); POTASSIUM 4.5 mmol/L (3.5-5.1); SODIUM SERUM 142 mmol/L (136-145); UREA NITROGEN, BLOOD 20 mg/dL (7-18)
[2024-08-13] MEDS ORDERED: LACTULOSE 20 GM/30 ML UDCUP PO ONE (12:30)
[2024-08-13] MEDS ORDERED: DEXTROSE 50%-WATER 50 ML DISP.SYRIN IV PRN (13:00)
[2024-08-13] MEDS ORDERED: GLUCAGON 1MG KIT 1 MG ML IM PRN (13:00)
[2024-08-13] MEDS: LACTULOSE 20 GM/30 ML UDCUP PO SCH (13:06)
[2024-08-13] MEDS: RIFAXIMIN 550 MG TABLET PO SCH (13:06)
[2024-08-13] MEDS: cefTRIAXone 1G VIAL IVPB SCH (13:06)
[2024-08-13] MEDS: 0.9%NACL 1000ML 1,000 ML IV SCH (13:08)
[2024-08-13] MEDS: THIAMINE HCL 100 MG/ML 2ML VIAL IVP SCH (13:08)
--- NOTE | 2024-08-13 13:10 | HMCIMG ---
PORTABLE CHEST RADIOGRAPH INDICATION: CIRRHOSIS, CONFUSION, evaluate for SIGNIFICANT INFILTRATES COMPARISON: 07/19/2024 FINDINGS: Median sternotomy wires as well as fixation plates and screws are in appropriate alignment. Heart size is normal. Mild calcific plaque is present along the aortic arch mullen. The pulmonary vascularity and katya appear normal. No abnormal pulmonary parenchymal opacity or consolidation identified. No significant pleural effusion noted. No pneumothorax detected. IMPRESSION: No radiographic evidence for any acute cardiopulmonary process.
--- NOTE | 2024-08-13 13:42 | HP ---
[facility] HISTORY AND PHYSICAL Date of Service: Aug 13, 2024 Time of Service: 13:31 HISTORY OF PRESENT ILLNESS: Date of service: 08/13/2024, patient was seen in ER room one 68-year-old male with underlying history of coronary artery disease, history of alcoholic liver cirrhosis, chronic thrombocytopenia, history of recurrent ascites requiring outpatient serial paracentesis, recent history of tips procedu re done in [place], [place] about two weeks ago, type 2 diabetes mellitus who presented to the ER for further evaluation of confusion that started today. Patient was brought in by his co-worker for further evaluation of confusion where he was noted to be very slow to respond to answers and then he was not answering questions appropriately. Family denies any recent history of fall. Patient states that he underwent tips procedure for recurrent ascites in [facility]. He is usually seen by [facility] and was hospitalized for about two days post TIPS. Patient and family denies noticing episodes of melena, hematochezia or hematemesis. Last paracentesis was about two weeks ago while he was hospitalized. Denies significant abdominal distention postprocedure. Patient denies any abdominal pain. states that patient has not been compliant with lactulose at home. He may have missed a dose of lactulose yesterday evening. 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 On presentation to the hospital, patient was noted to be afebrile with T-max of 98.2 F, heart rate of 95, blood pressure of 162/66. Labs on presentation showed WBC count of 4400, hemoglobin of 10.3, platelet count of [id number]. CMP remarkable for sodium of 142, potassium 4.5, BUN of 20, creatinine of 1.2, ammonia was noted to be elevated at 140. Patient underwent further evaluation with CT head without contrast which showed no acute intracranial bleed. Chest x-ray showed no significant infiltrates. Patient will be admitted for further management of decompensated cirrhosis of the liver with hepatic encephalopathy post tips. He will undergo further workup with ultrasound to ensure tips patency. We will monitor closely for signs of infection, as well as signs of GI bleeding. REVIEW OF SYSTEMS CONSTITUTIONAL: Reports having generalized malaise, asthenia NEUROLOGICAL: Family noticed that patient was having significant confusion and memory issues today, he has been more sleepy as well ENT: No hearing loss, otalgia, otorrhea, rhinitis, rhinorrhea, hoarseness, or sore throat. CARDIOVASCULAR: Denies any exertional angina, dyspnea on exertion, orthopnea, paroxysmal nocturnal dyspnea, palpitations, life-threatening arrhythmias, claudication. PULMONARY: Denies any shortness of breath, cough, phlegm/sputum, hemoptysis, pleuritic chest pain. SLEEP: Denies morning headaches, daytime somnolence or napping. Denies diffic ulty falling asleep, staying asleep, waking from sleep. Denies knowledge of snoring. GASTROINTESTINAL: Denies any type of dysphagia to either liquids or solids. Denies nausea, vomiting, pyrosis, early satiety, abdominal pain, diarrhea, constipation, or changes in stool consistency or caliber. Denies coffee-ground emesis, hematemesis, hematochezia, or melanotic stools. GENITOURINARY: Denies frequency, urgency, nocturia, hematuria or incontinence (Storage/Irritative symptoms.) Low urinary stream, straining to void, urinary intermittency or hesitancy, splitting of the voiding stream, terminal dribbling. ENDOCRINOLOGIC: Denies polyuria, polydipsia, polyphagia or heat/cold into lerances. HEMATOLOGIC: Denies thrombophilia/previous clots, or coagulopathy/bleeding disorders. ONCOLOGIC: Denies personal history of malignancy. DERMATOLOGIC: Denies rashes or pruritus. PSYCHIATRIC: Denies any suicidal or homicidal ideation. Denies hallucinations. PAST MEDICAL HISTORY: Prior medical history including hypertension, hyperlipidemia, history of alcoholic liver cirrhosis, history of chronic thrombocytopenia, type 2 diabetes mellitus, multivessel coronary artery disease, history of prior esophageal varices requiring banding in 2022, history of recurrent ascites PAST SURGICAL HISTORY: Recent history of tips placement in [facility], two weeks ago, history of coronary artery bypass grafting in 2022, appendectomy at the age of 14, history of recurrent paracentesis for management of tense ascites PAST SOCIAL HISTORY: Quit alcohol 25 years ago, denies significant smoking, 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 Motor is 5/5 in bilateral upper and lower extremities proximal to distal. No sensory deficits. Asterixis noted of bilateral upper extremity HEENT: Face is symmetric. Pupils are equal and reactive. Extraocular movements are intact. NECK: Supple. No JVD. No thyromegaly. No submental, submandibular, pre- /postauricular, occipital or supraclavicular lymphadenopathy. CHEST: Normal chest expansion. No Telemetry. LUNGS: Absence of any rales, rhonchi or any wheezing. CARDIOVASCULAR: Regular. S1 and S2 normal. No appreciable rubs, murmurs or gallops. ABDOMEN: Abdomen is mildly distended, no significant tenderness to palpation, bowel sounds are normoactive : Deferred. No Patiño. EXTREMITIES: Non-edematous and not cyanotic. No clubbing. Good capillary refill. SKIN: No skin breakdown. Vital Sign (Last 24 Hours) 08/13/24 10:56 Temp 98.1 Pulse 93 Resp 16 B/P (MAP) 143/60 Pulse Ox 98 O2 Delivery Room Air* O2 Flow Rate 0 FiO2 21 LABS: Laboratory: Test 08/13/24 10:45 Range/Units White Blood Count 4.4 L 4.8-10.8 K/uL Red Blood Count 3.43 L 4.50-6.20 MIL/uL Hemoglobin 10.3 L 14.0-18.0 g/dL Hematocrit 29.5 L 42-54 % Mean Corpuscular Volume 86.0 79-99 fL Mean Corpuscular Hemoglobin 30.0 27.0-33.0 pg Mean Corpuscular Hemoglobin Concent 34.9 32.0-36.0 g/dL Red Cell Distribution Width 15.7 H 11.0-15.5 % Platelet Count 110 L 130-400 K/uL Mean Platelet Volume 9.4 7.5-10.5 fL Immature Granulocyte % (Auto) 0.2 0-1 % Neutrophils (%) (Auto) 88.0 H 40.0-77.0 % Lymphocytes (%) (Auto) 7.3 L 21.0-51.0 % Monocytes (%) (Auto) 4.1 3.0-13.0 % Eosinophils (%) (Auto) 0.2 0.0-8.0 % Basophils (%) (Auto) 0.2 0.0-5.0 % Neutrophils # (Auto) 3.9 1.8-7.7 K/uL Lymphocytes # (Auto) 0.3 L 1.0-4.8 K/uL Monocytes # (Auto) 0.2 0.1-1.0 K/uL Eosinophils # (Auto) 0.01 0.00-0.70 K/uL Basophils # (Auto) 0.01 0.00-0.20 K/uL Absolute Immature Granulocyte (auto 0.01 0-1 K/uL Nucleated Red Blood Cells 0.0 0.0-0.19 % White Cell Morphology Comment See comments Prothrombin Time 13.2 H 9.6-11.6 SEC Prothromb Time International Ratio 1.20 H 0.85-1.15 Activated Partial Thromboplast Time 33.6 26.3-35.5 SEC Sodium Level 142 136-145 mmol/L Potassium Level 4.5 3.5-5.1 mmol/L Chloride Level 110 101-111 mmol/L Carbon Dioxide Level 23 21-32 mmol/L Blood Urea Nitrogen 20 H 7-18 mg/dL Creatinine 1.2 0.5-1.3 mg/dL Glomerular Filtration Rate Calc 65 >90 mL/min Random Glucose 137 H 70-105 mg/dL Total Calcium 8.5 8.5-10.1 mg/dL Magnesium Level 1.90 1.80-2.40 mg/dL Ammonia 140 *H 11-32 umol/L Total Creatine Kinase 46 # 21-232 U/L Troponin I High Sensitivity 10.3 4-75 ng/L Serum Alcohol < 3 0-10 mg/dL Current Medications Medications (Trade) Dose Ordered Sig/Dandre Route PRN Reason Start Time Stop Time Status Last Admin Dose Admin Ceftriaxone Sodium (ROCEphine 1G INJ) 1 gm Q12H IVPB 08/13/24 13:00 08/23/24 12:59 08/13/24 13:06 1 GM Dextrose (D50w) 50 ml AD PRN IV HYPOGLYCEMIA PROTOCOL 08/13/24 13:00 09/12/24 12:59 Glucagon (Glucagon 1mg Kit) 1 mg AD PRN IM HYPOGLYCEMIA PROTOCOL 08/13/24 13:00 09/12/24 12:59 Insulin Human Regular (humuLIN R 100 UNIT/ML 3ML) INSULIN SLIDING SCAL... ACHS SQ 08/13/24 16:30 09/12/24 16:29 Lactulose (Constulose 20gm/ 30ml Udcup) 30 gm Q6H PO 08/13/24 13:00 09/12/24 12:59 08/13/24 13:06 30 GM Pantoprazole Sodium (PROTonix 40MG INJ) 40 mg Q24H IVP 08/13/24 13:30 09/12/24 13:29 Rifaximin (Xifaxan) 550 mg Q12H PO 08/13/24 13:00 09/12/24 12:59 08/13/24 13:06 550 MG Sodium Chloride 1,000 ml @ 50 mls/hr Q20H IV 08/13/24 13:00 09/12/24 12:59 08/13/24 13:08 50 MLS/HR Thiamine HCl (Vitamin B-1) 100 mg Q24H IVP 08/13/24 13:00 09/12/24 12:59 08/13/24 13:08 100 MG DIAGNOSTICS / RADIOLOGY: SERVICE 1030 REASON: altered mental state ORDERING PHYSICIAN: REBECCA PIRES DO PROCEDURE: HEAD WO - CT HEAD/BRAIN W/O CONTRAST CT HEAD WITHOUT CONTRAST INDICATION: Altered mental status TECHNIQUE: Noncontrast axial helical CT images from the vertex through the skull base using 5 mm slice thickness without contrast material. CT was performed with one or more of the following dose reduction techniques: Automated exposure control, adjustment of the mA and/or kV according to patient size, or use of iterative reconstruction technique. COMPARISON: None FINDINGS: The cerebral and cerebellar hemispheres are age-appropriate in appearance. No evidence for abnormal extra-axial fluid collections or masses. The ventricles and sulci are normal in size and configuration. No evidence for intracranial parenchymal, epidural, or subdural hemorrhage, mass effect or midline shift. The villarreal-white matter differentiation is well preserved. No secondary evidence to suggest acute ischemia. The brainstem and cerebellum appear normal. The visualized orbits appear unremarkable. The visible paranasal sinuses and mastoid air cells are clear. The calvarium appears normal. IMPRESSION: No acute intracranial process identified. DICTATED BY: YOLIE PIÑA MD DATE: 08/13/24 1109 ELECTRONICALLY SIGNED BY: YOLIE PIÑA MD DATE: 08/13/24 1115 SERVICE 1242 REASON: CIRRHOSIS, CONFUSION, R/O SIGNIFICANT INFILTRATES ORDERING PHYSICIAN: DILEEP WRIGHT MD PROCEDURE: CXR1VW - CHEST 1VW PORTABLE CHEST RADIOGRAPH INDICATION: CIRRHOSIS, CONFUSION, evaluate for SIGNIFICANT INFILTRATES COMPARISON: 07/19/2024 FINDINGS: Median sternotomy wires as well as fixation plates and screws are in appropriate alignment. Heart size is normal. Mild calcific plaque is present along the aortic arch mullen. The pulmonary vascularity and katya appear normal. No abnormal pulmonary parenchymal opacity or consolidation identified. No significant pleural effusion noted. No pneumothorax detected. IMPRESSION: No radiographic evidence for any acute cardiopulmonary process. DICTATED BY: YOLIE PIÑA MD DATE: 08/13/24 1306 ELECTRONICALLY SIGNED BY: YOLIE PIÑA MD DATE: 08/13/24 1310 ASSESSMENT: Grade 3 hepatic encephalopathy, POA Decompensated cirrhosis of the liver with ascites and encephalopathy, POA Recent history of tips, performed two weeks ago in [facility], POA Suspected post tips hepatic encephalopathy, POA Rule out occult infection, POA Rule out active GI bleeding, POA History of recurrent ascites, POA History of hypertension, POA History of multivessel coronary artery disease with prior history of CABG, POA Type 2 diabetes mellitus, POA History of chronic thrombocytopenia, POA Prior history of esophageal varices requiring banding in 2022, POA PLAN: Patient will be admitted to telemetry floor Patient will be kept NPO except for medications We will start patient on lactulose 30 g q.6 hours and rifaximin 550 mg b.i.d. We will titrate lactulose to maintain at least 3-4 bowel movements today Monitor closely for signs of GI bleeding, obtain occult stool guaiac, monitor closely for melena, hematemesis, hematochezia While patient remains NPO, we will start NS at 50 cc an hour Lactic acid is noted to be elevated, we will start IV albumin Plan for diagnostic and therapeutic paracentesis by IR for Thursday to r/o SBP, will have hospitalist service resuming care tomorrow place orders for paracentesis and ascitic fluid studies We will obtain right upper quadrant ultrasound with Doppler to assess TIPS patency We will obtain blood cultures, chest x-ray, urinalysis We will keep patient on empiric antibiotic prophylaxis with Rocephin We will be patient on IV Protonix 40 mg daily Discussed with to see if we can obtain list of home medications once available All labs will be repeated in the morning Date of service: 08/13/24 Plan of care was discussed with at bedside, Prognosis remains guarded, Dileep Wright MD Advanced Care Planning: Which of the following were discussed: Hospice care: Yes __ No _X_ Therapeutic options: Yes _X_ No __ Advance directives: Yes _X_ No __ Other discussions: Discussed with who?: Patient Voluntary nature of this service was explained to the patient? Yes _x_ No __ Amount of time spent: 20 minutes DILEEP WRIGHT MD Aug 13, 2024 13:42
[2024-08-13 14:32] LABS: ALBUMIN 2.6 g/dL (3.5-5.0); BILIRUBIN,DIRECT 0.6 mg/dL (0.0-0.3); BILIRUBIN,TOTAL 2.5 mg/dL (0.2-1.0); TOTAL PROTEIN, SERUM 5.6 g/dL (6.0-8.3)
--- NOTE | 2024-08-13 14:34 | HMCIMG ---
ULTRASOUND ABDOMEN COMPLETE INDICATION: TIPS evaluation assess for patency COMPARISON: 03/03/2024 and 07/19/2024. FINDINGS: The liver is coarse in echotexture and nodular in contour; no focal lesion demonstrated. Main portal vein is patent, and normal direction of vascular flow demonstrated. Main portal vein velocity = 47 cm/sec. TIPS proximally = 67 cm/sec, midportion = 126 cm/sec, and distal = 72 cm/sec. The common bile duct caliber measures 5.0 mm. Small amount of gallbladder sludge without associated pericholecystic fluid. No sonographic Berman's sign elicited by the ultrasound hydraulic press operator. Wall thickness measures 3.0 mm. The spleen is normal in size and echotexture. The spleen measures 14.0 cm. Pancreas is obscured by overlying bowel gas. The right kidney measures 8.8 x 4.7 x 3.6 cm,and is normal in echogenicity, without evidence for hydronephrosis or shadowing stones. The left kidney measures 8.9 x 5.1 x 3.9 cm,and is normal in echogenicity, without evidence for hydronephrosis or shadowing stones. Visible portions of the abdominal aorta are within normal limits. Visible portions of the inferior vena cava are within normal limits. Moderate amount of free fluid demonstrated within all 4 quadrants of the abdomen. IMPRESSION: Limitations as reported. Cirrhotic liver and moderate-volume abdominopelvic ascites. Main portal vein velocity = 47 cm/sec. TIPS proximally = 67 cm/sec, midportion = 126 cm/sec, and distal = 72 cm/sec. Normal shunt velocity = 90-190 cm/sec. Gallbladder sludge without cholelithiasis or cholecystitis.
[2024-08-13 14:41] LABS: THYROID STIMULATING HORMONE 6.98 uIU/mL (0.36-3.74)
[2024-08-13] MEDS: PANTOPrazole 40 MG/VIAL IVP SCH (14:58)
[2024-08-13] MEDS: ALBUMIN (HUMAN) 25% 50 ML IV SCH (15:00)
[2024-08-13 15:28] LABS: HEMOGLOBIN A1C 5.6 % (4.0-6.0)
[2024-08-13] MEDS: INSULIN humuLIN R 100 UNIT/ML 3ML SQ SCH (16:30)
--- NOTE | 2024-08-13 16:33 | HMCIMG ---
CT ABDOMEN/PELVIS W/O CONTRAST INDICATION: decompensated cirrhosis, ascites, hx of recent TIPS procedure, confusion TECHNIQUE: CT ABDOMEN/PELVIS W/O CONTRAST. Oral contrast was 2 given. Coronal and sagittal reformats were performed. CT was performed with one or more of the following dose reduction techniques: Automated exposure control, adjustment of the mA and/or kV according to the patient's size, or use of the iterative reconstruction technique. Comparison: None. FINDINGS: The noncontrast nature this study limits evaluation of abdominal viscera. No pulmonary consolidation or pleural effusion is seen. Cirrhotic morphology the liver is seen with moderate amount of ascites, mesenteric edema, splenomegaly and TIPS stent in place. No acute findings in the pancreas and adrenal glands. No hydronephrosis. The urinary bladder is partially collapsed. Reproductive organs are grossly within normal limits for patient's age. Prominent fecal material is seen in the colon suggestive of constipation. No bowel obstruction is seen. The appendix was not clearly visualized limiting evaluation. Correlate clinically. Fluid-filled loops of small bowel which may may represent enteritis the proper clinical setting. Atherosclerotic changes of the aorta with calcified plaques. Degenerative changes of the spine are seen. IMPRESSION: 1. Cirrhotic morphology the liver is seen with moderate amount of ascites, mesenteric edema, splenomegaly and TIPS stent in place. 2. Constipation. Fluid-filled loops of small bowel which may may represent enteritis the proper clinical setting..
[2024-08-13 17:58] LABS: SARS-CoV-2, RNA, NAAT NEGATIVE SARS CoV-2 (NEGATIVE)
[2024-08-13 18:04] LABS: INFLUENZA TYPE A Negative For Type A (NEGATIVE); INFLUENZA TYPE B Negative For Type B (NEGATIVE)
--- NOTE | 2024-08-13 18:07 | NUR ---
PT PRESENTS TO ER AMS OVER PAST 24 HRS AMONIA LEVEL HIGH LACTULOSE MISSED AT HOME HOWEVER ADMIN IN THE ER AND SINCE INITIAL DOSE PT HAS HAD 2 LARGE BM MOR ORIENTED AT THIS POINT AND DISPLAYS NO VISABLE DISTRESS
--- NOTE | 2024-08-13 18:53 | HMCIMG ---
US VENOUS DOPPLER UNILATERAL INDICATION: Swelling. Right UPPER EXTREMITY EDEMA, R/O ANY DVT TECHNIQUE: US VENOUS DOPPLER UNILATERAL Real-time venous Doppler ultrasound was performed using B mode, color flow and spectral analysis. FINDINGS: Right cephalic vein thrombosis is seen. The visualized subclavian, axillary, brachial and basilic veins are within normal limits. IMPRESSION: Right cephalic vein thrombosis
[2024-08-13 19:03] LABS: HEMATOCRIT 24.8 % (42-54)
--- NOTE | 2024-08-13 19:23 | NUR ---
TRANSFERED CARE TO [facility] AT THIS TIME
[2024-08-13 19:27] LABS: APPEARANCE,URINE CLEAR (CLEAR); BILIRUBIN,URINE NEGATIVE (NEGATIVE); COLOR,URINE YELLOW (YELLOW); GLUCOSE, URINE (UA) NEGATIVE (NEGATIVE); KETONES,URINE NEGATIVE (NEGATIVE); LEUKOCYTE ESTERASE ,URINE NEGATIVE Leu/uL (NEGATIVE); NITRATE,URINE NEGATIVE (NEGATIVE); OCCULT BLOOD,URINE NEGATIVE (NEGATIVE); PROTEIN,URINE NEGATIVE (NEGATIVE); UROBILINOGEN,URINE 0.2 mg/dL (0.2-1.0)
[2024-08-13 19:36] LABS: AMPHET/METH SCREEN,URINE NEGATIVE (NEGATIVE); BARBITURATE SCREEN, URINE NEGATIVE (NEGATIVE); BENZODIAZEPINES SCREEN,URINE NEGATIVE (NEGATIVE); CANNABINOID SCREEN,URINE NEGATIVE (NEGATIVE); COCAINE SCREEN,URINE NEGATIVE (NEGATIVE); OPIATE SCREEN,URINE NEGATIVE (NEGATIVE); PHENCYCLIDINE SCREEN,URINE NEGATIVE (NEGATIVE)
[2024-08-13 19:48] LABS: ADD UA MICROSCOPIC YES
[2024-08-13 19:52] LABS: MUCUS,URINE RARE LPF (None Seen); SQUAMOUS EPITHELIAL CELL,UR RARE /HPF (0-2); WBC,URINE 0-1 /HPF (0-1)
--- NOTE | 2024-08-13 20:45 | NUR ---
APPLIED WARM COMPRESS TO RIGHT CEPHALIC THROMBOSISS.
[2024-08-14 07:02] LABS: EOSINOPHILS # (AUTO) 0.06 K/uL (0.00-0.70); EOSINOPHILS % (AUTO) 2.5 % (0.0-8.0); HEMATOCRIT 22.9 % (42-54); LYMPHOCYTES # (AUTO) 0.5 K/uL (1.0-4.8); LYMPHOCYTES % (AUTO) 19.2 % (21.0-51.0); MEAN CORPUSCULAR HEMOGLOBIN 29.6 pg (27.0-33.0); MEAN CORPUSCULAR HGB CONC 33.6 g/dL (32.0-36.0); MEAN CORPUSCULAR VOLUME 88.1 fL (79-99); MONOCYTES # (AUTO) 0.2 K/uL (0.1-1.0); MONOCYTES % (AUTO) 8.8 % (3.0-13.0); NEUTROPHILS # (AUTO) 1.7 K/uL (1.8-7.7); NEUTROPHILS % (AUTO) 69.5 % (40.0-77.0); PLATELET COUNT (AUTO) 65 K/uL (130-400); RED CELL DISTRIBUTION WIDTH 15.9 % (11.0-15.5); WHITE BLOOD COUNT (AUTO) 2.4 K/uL (4.8-10.8)
[2024-08-14 08:07] LABS: ALBUMIN 2.4 g/dL (3.5-5.0); BILIRUBIN,TOTAL 1.6 mg/dL (0.2-1.0); CREATININE 0.9 mg/dL (0.5-1.3); MAGNESIUM 1.9 mg/dL (1.80-2.40); TOTAL PROTEIN, SERUM 4.7 g/dL (6.0-8.3)
[2024-08-14 11:26] LABS: EOSINOPHILS % (MANUAL) 1 % (1-6); LYMPHOCYTES % (MANUAL) 14 % (22-44); MAN.DIFF COMMENT-IMPRESSION MANUAL DIFFERENTIAL; MONOCYTES % (MANUAL) 3 % (2-9); SEGMENTED NEUTROPHILS % 82 % (40-70); TOTAL CELLS COUNTED 100
[2024-08-14 11:27] LABS: PLATELET MORPHOLOGY COMMENT DECREASED
--- NOTE | 2024-08-14 14:13 | PN ---
[facility] PROGRESS NOTE Date of Service: Aug 14, 2024 Time of Service: 14:13 SUBJECTIVE: The patient was seen this morning at the bedside. The patient was stable and oriented to person, place, and time. Vital signs were stable. Blood culture an occult blood stool results remain pending. CT abdomen and pelvis findings: cirrhotic morphology of the liver with a moderate amount of ascites. Mesenteric edema. Splenomegaly. Tips stent in place. Fluid filled loops of small bowel, which may represent enteritis. today's laboratory results WBC 2.4 previously 4.4 , hemoglobin 7.7 previously 8.4, platelets 65 previously 110, sodium 145, potas sium 4, creatinine 0.9, GFR 92, lactic acid 1.8, ammonia decreased from 140-46. The patient remains on the following retreatment lactulose 30 g q.6 hour, rifaximin 550 mg b.i.d., ceftriaxone 1 g IV daily. A diagnostic and therapeutic paracentesis is planned for tomorrow. Medication reconciliation is pending as we await the list of home medications. Repeat laboratory studies are scheduled for tomorrow morning. The patient will continue to be observed and monitored closely. REVIEW OF SYSTEMS CONSTITUTIONAL: Reports having generalized malaise, asthenia NEUROLOGICAL: Family noticed that patient was having significant confusion and memory issues today, he has been more sleepy as well ENT: No hearing loss, otalgia, otorrhea, rhinitis, rhinorrhea, hoarseness, or sore throat. CARDIOVASCULAR: Denies any exertional angina, dyspnea on exertion, orthopnea, paroxysmal nocturnal dyspnea, palpitations, life-threatening arrhythmias, claudication. PULMONARY: Denies any shortness of breath, cough, phlegm/sputum, hemoptysis, pleuritic chest pain. SLEEP: Denies morning headaches, daytime somnolence or napping. Denies difficulty falling asleep, staying asleep, waking from sleep. Denies knowledge of snoring. GASTROINTESTINAL: Denies any type of dysphagia to either liquids or solids. Denies nausea, vomiting, pyrosis, early satiety, abdominal pain, diarrhea, constipation, or changes in stool consistency or caliber. Denies coffee-ground emesis, hematemesis, hematochezia, or melanotic stools. GENITOURINARY: Denies frequency, urgency, nocturia, hematuria or incontinence (Storage/Irritative symptoms.) Low urinary stream, straining to void, urinary intermittency or hesitancy, splitting of the voiding stream, terminal dribbling. ENDOCRINOLOGIC: Denies polyuria, polydipsia, polyphagia or heat/cold intolerances. HEMATOLOGIC: Denies thrombophilia/previous clots, or coagulopathy/bleeding disorders. ONCOLOGIC: Denies personal history of malignancy. DERMATOLOGIC: Denies rashes or pruritus. PSYCHIATRIC: Denies any suicidal or homicidal ideation. Denies hallucinations. PHYSICAL EXAM GENERAL APPEARANCE: The patient is lethargic, able to tell me his name and he was able to tell me that he is in the hospital, does not recall time NEUROLOGICAL: Cranial nerves II-XII grossly intact. Motor is 5/5 in bilateral upper and lower extremities proximal to distal. No sensory deficits. Asterixis noted of bilateral upper extremity HEENT: Face is symmetric. Pupils are equal and reactive. Extraocular movements are intact. NECK: Supple. No JVD. No thyromegaly. No submental, submandibular, pre- /postauricular, occipital or supraclavicular lymphadenopathy. CHEST: Normal chest expansion. No Telemetry. LUNGS: Absence of any rales, rhonchi or any wheezing. CARDIOVASCULAR: Regular. S1 and S2 normal. No appreciable rubs, murmurs or gallops. ABDOMEN: Abdomen is mildly distended, no significant tenderness to palpation, bowel sounds are normoactive : Deferred. No Patiño. EXTREMITIES: Non-edematous and not cyanotic. No clubbing. Good capillary refill. SKIN: No skin breakdown. Vital Signs (last 8hr) Date Time Temp Pulse Resp B/P (MAP) Pulse Ox O2 Delivery O2 Flow Rate FiO2 08/14/24 12:05 97.9 75 19 143/57 100 Room Air* 0 21 08/14/24 07:48 97.9 66 17 116/66 100 Room Air* 0 21 LABS: Laboratory: Test 08/14/24 12:39 08/14/24 11:50 08/14/24 06:53 08/13/24 19:10 Range/Units Whole Blood Glucose 97 70-110 MG/DL Stool Occult Blood NEGATIVE NEGATIVE White Blood Count 2.4 #L 4.8-10.8 K/uL Red Blood Count 2.60 #L 4.50-6.20 MIL/uL Hemoglobin 7.7 L 14.0-18.0 g/dL Hematocrit 22.9 L 42-54 % Mean Corpuscular Volume 88.1 79-99 fL Mean Corpuscular Hemoglobin 29.6 27.0-33.0 pg Mean Corpuscular Hemoglobin Concent 33.6 32.0-36.0 g/dL Red Cell Distribution Width 15.9 H 11.0-15.5 % Platelet Count 65 #L 130-400 K/uL Mean Platelet Volume 9.8 7.5-10.5 fL Immature Granulocyte % (Auto) 0.0 0-1 % Neutrophils (%) (Auto) 69.5 40.0-77.0 % Lymphocytes (%) (Auto) 19.2 L 21.0-51.0 % Monocytes (%) (Auto) 8.8 3.0-13.0 % Eosinophils (%) (Auto) 2.5 0.0-8.0 % Basophils (%) (Auto) 0.0 0.0-5.0 % Neutrophils # (Auto) 1.7 L 1.8-7.7 K/uL Lymphocytes # (Auto) 0.5 L 1.0-4.8 K/uL Monocytes # (Auto) 0.2 0.1-1.0 K/uL Eosinophils # (Auto) 0.06 0.00-0.70 K/uL Basophils # (Auto) 0.00 0.00-0.20 K/uL Absolute Immature Granulocyte (auto 0.00 0-1 K/uL Segmented Neutrophils % 82 H 40-70 % Lymphocytes % (Manual) 14 L 22-44 % Monocytes % (Manual) 3 2-9 % Eosinophils % (Manual) 1 1-6 % Nucleated Red Blood Cells 0.0 0.0-0.19 % Differential Comment MANUAL DIFFERENTIAL White Cell Morphology Comment Platelet Morphology Comment DECREASED Red Blood Cell Morphology ANISO 1+ Sodium Level 145 136-145 mmol/L Potassium Level 4.0 3.5-5.1 mmol/L Chloride Level 114 H 101-111 mmol/L Carbon Dioxide Level 24 21-32 mmol/L Blood Urea Nitrogen 18 7-18 mg/dL Creatinine 0.9 0.5-1.3 mg/dL Glomerular Filtration Rate Calc 92 >90 mL/min Random Glucose 87 70-105 mg/dL Total Calcium 8.1 L 8.5-10.1 mg/dL Magnesium Level 1.90 1.80-2.40 mg/dL Total Bilirubin 1.6 #H 0.2-1.0 mg/dL Aspartate Amino Transf (AST/SGOT) 21 10-37 U/L Alanine Aminotransferase (ALT/SGPT) 32 # 12-78 U/L Alkaline Phosphatase 134 # 50-136 U/L Ammonia 46 #H 11-32 umol/L Total Protein 4.7 L 6.0-8.3 g/dL Albumin 2.4 L 3.5-5.0 g/dL Urine Color YELLOW YELLOW Urine Appearance CLEAR CLEAR Urine pH 6.0 5.0-8.0 Urine Specific [place] 1.016 1.001-1.031 Urine Protein NEGATIVE NEGATIVE mg/dL Urine Glucose (UA) NEGATIVE NEGATIVE mg/dL Urine Ketones NEGATIVE NEGATIVE mg/dL Urine Occult Blood NEGATIVE NEGATIVE Urine Nitrate NEGATIVE NEGATIVE Urine Bilirubin NEGATIVE NEGATIVE mg/dL Urine Urobilinogen 0.2 0.2-1.0 mg/dL Urine Leukocyte Esterase NEGATIVE NEGATIVE Oscar/uL Urine RBC 2-5 H 0-1 /HPF Urine WBC 0-1 0-1 /HPF Urine Squamous Epithelial Cells RARE 0-2 /HPF Urine Bacteria None None Seen /HPF Urine Hyaline Casts 6-10 H 0-1 /LPF /LPF Urine Opiates Screen NEGATIVE NEGATIVE Urine Barbiturates Screen NEGATIVE NEGATIVE Urine Phencyclidine Screen NEGATIVE NEGATIVE Urine Amphetamines Screen NEGATIVE NEGATIVE Urine Benzodiazepines Screen NEGATIVE NEGATIVE Urine Cocaine Screen NEGATIVE NEGATIVE Urine Marijuana (THC) Screen NEGATIVE NEGATIVE Test 08/13/24 18:58 08/13/24 17:32 08/13/24 10:45 Range/Units Lactic Acid Level 1.8 0.8-2.5 mmol/L Influenza Type A Antigen Negative For Type A NEGATIVE Influenza Type B Antigen Negative For Type B NEGATIVE SARS-CoV-2, RNA, NAAT NEGATIVE SARS CoV-2 NEGATIVE Erythrocyte Sedimentation Rate 4 0-20 MM/HR Prothrombin Time 13.2 H 9.6-11.6 SEC Prothromb Time International Ratio 1.20 H 0.85-1.15 Activated Partial Thromboplast Time 33.6 26.3-35.5 SEC Hemoglobin A1c 5.6 4.0-6.0 % Estimated Average Glucose (eAG) 114 70-126 mg/dL Direct Bilirubin 0.6 H 0.0-0.3 mg/dL Total Creatine Kinase 46 # 21-232 U/L Troponin I High Sensitivity 10.3 4-75 ng/L C-Reactive Protein, Quantitative 5.70 H 0.5-3.0 mg/L Procalcitonin 0.10 0.05-0.5 ng/mL Thyroid Stimulating Hormone (TSH) 6.98 #H 0.36-3.74 uIU/mL Serum Alcohol < 3 0-10 mg/dL Current Medications Medications (Trade) Dose Ordered Sig/Dandre Route PRN Reason Start Time Stop Time Status Last Admin Dose Admin Albumin Human 50 ml @ 0 mls/hr Q6H IV 08/13/24 14:30 08/16/24 14:29 08/14/24 09:38 50 MLS/HR Ceftriaxone Sodium (ROCEphine 1G INJ) 1 gm Q12H IVPB 08/13/24 13:00 08/23/24 12:59 08/14/24 13:23 1 GM Dextrose (D50w) 50 ml AD PRN IV HYPOGLYCEMIA PROTOCOL 08/13/24 13:00 09/12/24 12:59 Glucagon (Glucagon 1mg Kit) 1 mg AD PRN IM HYPOGLYCEMIA PROTOCOL 08/13/24 13:00 09/12/24 12:59 Insulin Human Regular (humuLIN R 100 UNIT/ML 3ML) INSULIN SLIDING SCAL... ACHS SQ 08/13/24 16:30 09/12/24 16:29 Lactulose (Constulose 20gm/ 30ml Udcup) 30 gm Q6H PO 08/13/24 13:00 09/12/24 12:59 08/14/24 09:38 30 GM Pantoprazole Sodium (PROTonix 40MG INJ) 40 mg Q24H IVP 08/13/24 13:30 09/12/24 13:29 08/14/24 13:23 40 MG Rifaximin (Xifaxan) 550 mg Q12H PO 08/13/24 13:00 09/12/24 12:59 08/14/24 13:23 550 MG Sodium Chloride 1,000 ml @ 50 mls/hr Q20H IV 08/13/24 13:00 08/14/24 09:27 DC 08/13/24 13:08 50 MLS/HR Thiamine HCl (Vitamin B-1) 100 mg Q24H IVP 08/13/24 13:00 09/12/24 12:59 08/14/24 13:23 100 MG DIAGNOSTICS / RADIOLOGY: PATIENT: RUMA SAINI MR#: [id number] : 1955 SEX: M AGE: 68 LOCATION: [facility] ORDER 28 STATUS: ADM IN REPORT#: [id number] SERVICE 26 REASON: decompensated cirrhosis, ascites, hx of recent TIPS procedure, confusion ORDERING PHYSICIAN: NATALIIA KELLY MD PROCEDURE: ABD PEL WO - CT ABDOMEN/PELVIS W/O CONTRAST CT ABDOMEN/PELVIS W/O CONTRAST INDICATION: decompensated cirrhosis, ascites, hx of recent TIPS procedure, confusion TECHNIQUE: CT ABDOMEN/PELVIS W/O CONTRAST. Oral contrast was 2 given. Coronal and sagittal reformats were performed. CT was performed with one or more of the following dose reduction techniques: Automated exposure control, adjustment of the mA and/or kV according to the patient's size, or use of the iterative reconstruction technique. Comparison: None. FINDINGS: The noncontrast nature this study limits evaluation of abdominal viscera. No pulmonary consolidation or pleural effusion is seen. Cirrhotic morphology the liver is seen with moderate amount of ascites, mesenteric edema, splenomegaly and TIPS stent in place. No acute findings in the pancreas and adrenal glands. No hydronephrosis. The urinary bladder is partially collapsed. Reproductive organs are grossly within normal limits for patient's age. Prominent fecal material is seen in the colon suggestive of constipation. No bowel obstruction is seen. The appendix was not clearly visualized limiting evaluation. Correlate clinically. Fluid-filled loops of small bowel which may may represent enteritis the proper clinical setting. Atherosclerotic changes of the aorta with calcified plaques. Degenerative changes of the spine are seen. IMPRESSION: 1. Cirrhotic morphology the liver is seen with moderate amount of ascites, mesenteric edema, splenomegaly and TIPS stent in place. 2. Constipation. Fluid-filled loops of small bowel which may may represent enteritis the proper clinical setting.. DICTATED BY: BRENDA JAEGER MD DATE: 08/13/24 1628 ELECTRONICALLY SIGNED BY: BRENDA JAEGER MD DATE: 08/13/24 1635 PATIENT: RUMA SAINI MR#: [id number] : 1955 SEX: M AGE: 68 LOCATION: [facility] ORDER 1301 STATUS: ADM IN REPORT#: [id number] SERVICE 1258 REASON: rIGHT UPPER EXTREMITY EDEMA, R/O ANY DVT ORDERING PHYSICIAN: NATALIIA KELLY MD PROCEDURE: VENOUS UNI - US VENOUS DOPPLER UNILATERAL US VENOUS DOPPLER UNILATERAL INDICATION: Swelling. Right UPPER EXTREMITY EDEMA, R/O ANY DVT TECHNIQUE: US VENOUS DOPPLER UNILATERAL Real-time venous Doppler ultrasound was performed using B mode, color flow and spectral analysis. FINDINGS: Right cephalic vein thrombosis is seen. The visualized subclavian, axillary, brachial and basilic veins are within normal limits. IMPRESSION: Right cephalic vein thrombosis DICTATED BY: BRENDA JAEGER MD DATE: 08/13/241850 ELECTRONICALLY SIGNED BY: RBENDA JAEGER MD DATE: 08/13/241852 ASSESSMENT: Grade 3 hepatic encephalopathy, POA Decompensated cirrhosis of the liver with ascites and encephalopathy, POA Recent history of tips, performed two weeks ago in [facility], POA Suspected post tips hepatic encephalopathy, POA Rule out occult infection, POA Rule out active GI bleeding, POA History of recurrent ascites, POA History of hypertension, POA History of multivessel coronary artery disease with prior history of CABG, POA Type 2 diabetes mellitus, POA History of chronic thrombocytopenia, POA Prior history of esophageal varices requiring banding in 2022, POA PLAN: Patient admitted to telemetry floor Patient on full liquid diet Continue on lactulose 30 g q.6 hours and rifaximin 550 mg b.i.d. Monitor closely for signs of GI bleeding, obtain occult stool guaiac, monitor closely for melena, hematemesis, hematochezia Perform diagnostic and therapeutic paracentesis tomorrow to evaluate and relief ascites. Await blood culture and stool occult blood results Continue patient on empiric antibiotic prophylaxis with Rocephin Continue patient on IV Protonix 40 mg daily Discussed with to see if we can obtain list of home medications once availa ble All labs will be repeated in the morning ATTESTATION BY PHYSICIAN I have seen and examined the patient. I reviewed the documentation, medical decision making, and treatment plan as noted by the resident provider above. I agree with the findings and plan of care. Hernandez Vincent MD, GERARDO MD Aug 14, 2024 14:13
[2024-08-14 18:00] VITALS: BP 132/59; PULSE 69; RESP 18; TEMP 97.5; O2SAT 100
[2024-08-14] MEDS ORDERED: ELTR50TA PO (18:51)
[2024-08-14] MEDS ORDERED: RIFA550T PO (18:52)
[2024-08-14] MEDS ORDERED: LIPA1CAP18 PO (18:52)
[2024-08-14] MEDS ORDERED: CARB-283 OP (18:55)
[2024-08-14 20:18] VITALS: BP 127/56; PULSE 62; RESP 18; TEMP 98.1
[2024-08-14 20:50] VITALS: O2SAT 100
[2024-08-14 23:55] VITALS: BP 103/74; PULSE 76; RESP 20; TEMP 98
[2024-08-15 03:46] VITALS: BP 120/56; PULSE 69; RESP 18; TEMP 98.2
[2024-08-15 05:12] LABS: EOSINOPHILS # (AUTO) 0.09 K/uL (0.00-0.70); EOSINOPHILS % (AUTO) 4.5 % (0.0-8.0); HEMATOCRIT 22.4 % (42-54); LYMPHOCYTES # (AUTO) 0.4 K/uL (1.0-4.8); MEAN CORPUSCULAR HEMOGLOBIN 29.8 pg (27.0-33.0); MEAN CORPUSCULAR HGB CONC 33.5 g/dL (32.0-36.0); MEAN CORPUSCULAR VOLUME 88.9 fL (79-99); MONOCYTES # (AUTO) 0.2 K/uL (0.1-1.0); MONOCYTES % (AUTO) 7.5 % (3.0-13.0); NEUTROPHILS # (AUTO) 1.4 K/uL (1.8-7.7); PLATELET COUNT (AUTO) 67 K/uL (130-400); RED BLOOD CELL COUNT(AUTO) 2.52 MIL/uL (4.50-6.20)
[2024-08-15 05:29] LABS: ALBUMIN 2.8 g/dL (3.5-5.0); BILIRUBIN,TOTAL 1.6 mg/dL (0.2-1.0); CREATININE 1.1 mg/dL (0.5-1.3); POTASSIUM 3.5 mmol/L (3.5-5.1); TOTAL PROTEIN, SERUM 5.1 g/dL (6.0-8.3)
[2024-08-15 08:00] VITALS: O2SAT 99
[2024-08-15 08:01] VITALS: BP 138/61; PULSE 68; RESP 16; TEMP 98.3
[2024-08-15] MEDS ORDERED: ALBUMIN (HUMAN) 25% 200 ML IV SCH (10:30)
--- NOTE | 2024-08-15 10:40 | NUR ---
U/S GD PARACENTESIS TOLERATED PROCEDURE. PERFORMED BY DR Juliette NAIR. 4.0 LITERS OF BLOOD TINGED FLUID REMOVED FROM RLQ. SPECIMEN SENT TO LAB. END OF PROCEDURE AT 1020. DRESSING DRY AND INTACT. NO BLEEDING NOTED. REPORT GIVEN TO RONALD HUFFMAN. TRANSPORTED TO [facility] VIA BED WITH AT BEDSIDE. A&O DENIES PAIN. ALBUMIN 25% 50 GRAMS TO BE GIVEN WHEN RETURN TO [facility].
--- NOTE | 2024-08-15 11:12 | NUR ---
DCP CM MET WITH PT ASSESSMENT DONE. PATIENT IS INDEPENDENT PRIOR TO ADMISSION, LIVES AT HOME WITH HIS . DENIES ANY EQUIPMENT/SERVICES. FEELS SAFE TO GO BACK HOME, STILL WORK AND DRIVE, ABLE TO ASSIST WITH TRANSPORTATION AND NEEDS NECESSARY. DCP HOME ONCE STABLE. CM TO CONTINUE TO FOLLOW UP. Addendum: 08/15/24 at 1114 by LEENA ADLER LVN CM Amended: Links added.
[2024-08-15 11:21] VITALS: BP 124/54; PULSE 65; RESP 20; TEMP 98.4
--- NOTE | 2024-08-15 12:30 | NUR ---
TOOK OVER PATIENT CARE, RECEIVED REPORT FORM NATHANAEL CARDENAS.
--- NOTE | 2024-08-15 12:38 | HMCIMG ---
US ABDOMINAL PARACENTESIS IR REASON: Diagnostic and therapeutic TECHNIQUE: Paracentesis was performed with ultrasound guidance. The puncture site was selected in the Right lower quadrant and overlying skin prepped and draped in a sterile fashion. 1% Xylocaine infiltration was performed. Catheter was placed in the fluid using trocar technique. 4 L were removed. Fluid sample was submitted for laboratory evaluation. The patient showed no evidence of complication during the procedure. IMPRESSION: 1. Ultrasound-guided paracentesis.
[2024-08-15 12:43] LABS: BODY FLUID RBC 41979 /cu. mm.; BODY FLUID WBC 175 /cu. mm.
[2024-08-15 13:54] LABS: BF LYMPHOCYTE 68 %; BF MACROPHAGE 18; BF MESOTHELIAL 4 %; BF MONOCYTE 7 %; BF TOTAL CELLS COUNTED 100
[2024-08-15 13:55] LABS: APPEARANCE BODY FLUID CLOUDY (CLEAR); COLOR,BODY FLUID RED (LT YELLOW); SPECIMENTYPE,BODY FLUID ASCITES
[2024-08-15 13:56] LABS: TOTAL VOLUME,BODY FLUID 4000 mL
--- NOTE | 2024-08-15 14:49 | HMCIMG ---
CHEST 1VW REASON: POST LT CHEST PIGTAIL DRAIN PLACEMENT COMPARISON: 08/13/2024 on the postprocedure chest x-ray and chest where a problem with the catheter is available chest, no pneumothorax can be a recent order a nonwas there on the superficial draining cellulitis previous sternotomy and no pneumothorax...: FINDINGS: Single view of the chest was obtained. Lungs are clear. Heart size is normal. There is no pulmonary vascular congestion. Mediastinum and bony thorax appear unremarkable. There is been a previous median sternotomy. There is no pneumothorax. The 8 Scottish pigtail catheter is not well seen on this image. IMPRESSION: 1. No pneumothorax following left anterior 8 Scottish pigtail catheter placement.
[2024-08-15 16:05] VITALS: BP 146/64; PULSE 60; RESP 16; TEMP 97.8
--- NOTE | 2024-08-15 16:17 | PN ---
[facility] PROGRESS NOTE Date of Service: Aug 15, 2024 Time of Service: 15:58 SUBJECTIVE: 08/13/2024- 68-year-old male with underlying history of coronary artery disease, history of alcoholic liver cirrhosis, chronic thrombocytopenia, history of recurrent ascites requiring outpatient serial paracentesis, recent history of tips procedure done in [place], [place] about two weeks ago, type 2 diabetes mellitus who presented to the ER for further evaluation of confusion that started today. Patient was brought in by his co-worker for further evaluation of confusion where he was noted to be very slow to respond to answers and then he was not answering questions appropriately. Family denies any recent history of fall. Patient states that he underwent tips procedure for recurrent ascites in [facility]. He is usually seen by [facility] and was hospitalized for about two days post TIPS. Patient and family denies noticing episodes of melena, hematochezia or hematemesis. Last paracentesis was about two weeks ago while he was hospitalized. Denies significant abdominal distention postprocedure. Patient denies any abdominal pain. states that patient has not been compliant with lactulose at home. He may have missed a dose of lactulose yester day evening. 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 On presentation to the hospital, patient was noted to be afebrile with T-max of 98.2 F, heart rate of 95, blood pressure of 162/66. Labs on presentation showed WBC count of 4400, hemoglobin of 10.3, platelet count of 098757. CMP remarkable for sodium of 142, potassium 4.5, BUN of 20, creatinine of 1.2, ammonia was noted to be elevated at 140. Patient underwent further evaluation with CT head without contrast which showed no acute intracranial bleed. Chest x-ray showed no significant infiltrates. Patient will be admitted for further management of decompensated cirrhosis of the liver with hepatic encephalopathy post tips. He will undergo further workup with ultrasound to ensure tips patency. We will monitor closely for signs of infection, as well as signs of GI bleeding. 08/14/2024- The patient was seen this morning at the bedside. The patient was stable and oriented to person, place, and time. Vital signs were stable. Blood culture an occult blood stool results remain pending. CT abdomen and pelvis findings: cirrhotic morphology of the liver with a moderate amount of ascites. Mesenteric edema. Splenomegaly. Tips stent in place. Fluid filled loops of small bowel, which may represent enteritis. today's laboratory results WBC 2.4 previously 4.4 , hemoglobin 7.7 previously 8.4, platelets 65 previously 110, sodium 145, potassium 4, creatinine 0.9, GFR 92, lactic acid 1.8, ammonia decreased from 140-46. The patient remains on the following retreatment lactulose 30 g q.6 hour, rifaximin 550 mg b.i.d., ceftriaxone 1 g IV daily. A diagnostic and therapeutic paracentesis is planned for tomorrow. Medication reconciliation is pending as we await the list of home medications. Repeat lab oratory studies are scheduled for tomorrow morning. The patient will continue to be observed and monitored closely. 08/15/2024 - the patient was seen this morning at bedside. The patient is stable and oriented to time place person. Patient's vitals are stable temperature 98.4, pulse 65, respiratory rate 20, blood pressure 124/54, saturating at 100% at room air. Patient had undergone paracentesis draining 4 L of red cloudy fluid which is negative for any infectious process. Labs show WBC 2 , hemoglobin 7.5, platelet count 67 and chemistries show sodium 144, potassium 3.5, creatinine 1.1, BUN 20, Jonathan 1.6, ammonia 47, total protein 5.1, albumin 2.8. Ascitic fluid analysis fluid WBC -175, fluid neutrophils 3.0 , fluid RBCs 63145. Stool occult blood came back negative. Given the patient's recent tips surgery and patient's hemoglobin and ascitic fluid, gastroenterology has been consulted. Home medication has been reconciled . patient continues to be on lactulose and rifaximin. Patient will be monitored closely. Awaiting recommendations from Gastroenterology. REVIEW OF SYSTEMS CONSTITUTIONAL: Reports having generalized malaise, asthenia NEUROLOGICAL: Family noticed that patient was having significant confusion and memory issues today, he has been more sleepy as well ENT: No hearing loss, otalgia, otorrhea, rhinitis, rhinorrhea, hoarseness, or sore throat. CARDIOVASCULAR: Denies any exertional angina, dyspnea on exertion, orthopnea, paroxysmal nocturnal dyspnea, palpitations, life-threatening arrhythmias, claudication. PULMONARY: Denies any shortness of breath, cough, phlegm/sputum, hemoptysis, pleuritic chest pain. SLEEP: Denies morning headaches, daytime somnolence or napping. Denies difficulty falling asleep, staying asleep, waking from sleep. Denies knowledge of snoring. GASTROINTESTINAL: Denies any type of dysphagia to either liquids or solids. Denies nausea, vomiting, pyrosis, early satiety, abdominal pain, diarrhea, constipation, or changes in stool consistency or caliber. Denies coffee-ground emesis, hematemesis, hematochezia, or melanotic stools. GENITOURINARY: Denies frequency, urgency, nocturia, hematuria or incontinence (Storage/Irritative symptoms.) Low urinary stream, straining to void, urinary intermittency or hesitancy, splitting of the voiding stream, terminal dribbling. ENDOCRINOLOGIC: Denies polyuria, polydipsia, polyphagia or heat/cold intolerances. HEMATOLOGIC: Denies thrombophilia/previous clots, or coagulopathy/bleeding disorders. ONCOLOGIC: Denies personal history of malignancy. DERMATOLOGIC: Denies rashes or pruritus. PSYCHIATRIC: Denies any suicidal or homicidal ideation. Denies hallucinations. PHYSICAL EXAM GENERAL APPEARANCE: The patient is lethargic, able to tell me his name and he was able to tell me that he is in the hospital, does not recall time NEUROLOGICAL: Cranial nerves II-XII grossly intact. Motor is 5/5 in bilateral upper and lower extremities proximal to distal. No sensory deficits. Asterixis noted of bilateral upper extremity HEENT: Face is symmetric. Pupils are equal and reactive. Extraocular movements are intact. NECK: Supple. No JVD. No thyromegaly. No submental, submandibular, pre- /postauricular, occipital or supraclavicular lymphadenopathy. CHEST: Normal chest expansion. No Telemetry. LUNGS: Absence of any rales, rhonchi or any wheezing. CARDIOVASCULAR: Regular. S1 and S2 normal. No appreciable rubs, murmurs or gallops. ABDOMEN: Abdomen is mildly distended, no significant tenderness to palpation, bowel sounds are normoactive : Deferred. No Patiño. EXTREMITIES: Non-edematous and not cyanotic. No clubbing. Good capillary ref ill. SKIN: No skin breakdown. Vital Signs (last 8hr) Date Time Temp Pulse Resp B/P (MAP) Pulse Ox O2 Delivery O2 Flow Rate FiO2 1/27/25 11:21 98.4 65 20 124/54 100 Room Air 08/15/24 08:01 98.2 68 16 138/61 99 Room Air 08/15/24 08:00 99 Room Air* 0 21 LABS: Laboratory: Test 08/15/24 15:53 08/15/24 10:30 08/15/24 04:51 08/14/24 11:50 Range/Units Whole Blood Glucose 165 #H 70-110 MG/DL Body Fluid Source ASCITES Body Fluid Volume 4000 mL Body Fluid Color RED H LT YELLOW Body Fluid Supernatant Appearance CLOUDY H CLEAR Body Fluid WBC 175 /cu. mm. Body Fluid RBC 99606 /cu. mm. Body Fluid Neutrophils 3.0 % Body Fluid Lymphocytes 68 % Body Fluid Monocytes % 7 % Body Fluid Macrophages (%) 18 Body Fluid Mesothelial Cells (%) 4 % White Blood Count 2.0 L 4.8-10.8 K/uL Red Blood Count 2.52 L 4.50-6.20 MIL/uL Hemoglobin 7.5 L 14.0-18.0 g/dL Hematocrit 22.4 L 42-54 % Mean Corpuscular Volume 88.9 79-99 fL Mean Corpuscular Hemoglobin 29.8 27.0-33.0 pg Mean Corpuscular Hemoglobin Concent 33.5 32.0-36.0 g/dL Red Cell Distribution Width 16.0 H 11.0-15.5 % Platelet Count 67 L 130-400 K/uL Mean Platelet Volume 10.0 7.5-10.5 fL Immature Granulocyte % (Auto) 0.0 0-1 % Neutrophils (%) (Auto) 69.0 40.0-77.0 % Lymphocytes (%) (Auto) 19.0 L 21.0-51.0 % Monocytes (%) (Auto) 7.5 3.0-13.0 % Eosinophils (%) (Auto) 4.5 0.0-8.0 % Basophils (%) (Auto) 0.0 0.0-5.0 % Neutrophils # (Auto) 1.4 L 1.8-7.7 K/uL Lymphocytes # (Auto) 0.4 L 1.0-4.8 K/uL Monocytes # (Auto) 0.2 0.1-1.0 K/uL Eosinophils # (Auto) 0.09 0.00-0.70 K/uL Basophils # (Auto) 0.00 0.00-0.20 K/uL Absolute Immature Granulocyte (auto 0.00 0-1 K/uL Nucleated Red Blood Cells 0.0 0.0-0.19 % Sodium Level 144 136-145 mmol/L Potassium Level 3.5 3.5-5.1 mmol/L Chloride Level 111 101-111 mmol/L Carbon Dioxide Level 22 21-32 mmol/L Blood Urea Nitrogen 20 H 7-18 mg/dL Creatinine 1.1 0.5-1.3 mg/dL Glomerular Filtration Rate Calc 73 >90 mL/min Random Glucose 97 70-105 mg/dL Total Calcium 8.3 L 8.5-10.1 mg/dL Total Bilirubin 1.6 H 0.2-1.0 mg/dL Aspartate Amino Transf (AST/SGOT) 25 10-37 U/L Alanine Aminotransferase (ALT/SGPT) 29 12-78 U/L Alkaline Phosphatase 123 50-136 U/L Ammonia 47 H 11-32 umol/L Total Protein 5.1 L 6.0-8.3 g/dL Albumin 2.8 L 3.5-5.0 g/dL Stool Occult Blood NEGATIVE NEGATIVE Test 08/14/24 06:53 08/13/24 19:10 08/13/24 18:58 08/13/24 17:32 Range/Units Segmented Neutrophils % 82 H 40-70 % Lymphocytes % (Manual) 14 L 22-44 % Monocytes % (Manual) 3 2-9 % Eosinophils % (Manual) 1 1-6 % Differential Comment MANUAL DIFFERENTIAL White Cell Morphology Comment Platelet Morphology Comment DECREASED Red Blood Cell Morphology ANISO 1+ Magnesium Level 1.90 1.80-2.40 mg/dL Urine Color YELLOW YELLOW Urine Appearance CLEAR CLEAR Urine pH 6.0 5.0-8.0 Urine Specific [place] 1.016 1.001-1.031 Urine Protein NEGATIVE NEGATIVE mg/dL Urine Glucose (UA) NEGATIVE NEGATIVE mg/dL Urine Ketones NEGATIVE NEGATIVE mg/dL Urine Occult Blood NEGATIVE NEGATIVE Urine Nitrate NEGATIVE NEGATIVE Urine Bilirubin NEGATIVE NEGATIVE mg/dL Urine Urobilinogen 0.2 0.2-1.0 mg/dL Urine Leukocyte Esterase NEGATIVE NEGATIVE Oscar/uL Urine RBC 2-5 H 0-1 /HPF Urine WBC 0-1 0-1 /HPF Urine Squamous Epithelial Cells RARE 0-2 /HPF Urine Bacteria None None Seen /HPF Urine Hyaline Casts 6-10 H 0-1 /LPF /LPF Urine Opiates Screen NEGATIVE NEGATIVE Urine Barbiturates Screen NEGATIVE NEGATIVE Urine Phencyclidine Screen NEGATIVE NEGATIVE Urine Amphetamines Screen NEGATIVE NEGATIVE Urine Benzodiazepines Screen NEGATIVE NEGATIVE Urine Cocaine Screen NEGATIVE NEGATIVE Urine Marijuana (THC) Screen NEGATIVE NEGATIVE Lactic Acid Level 1.8 0.8-2.5 mmol/L Influenza Type A Antigen Negative For Type A NEGATIVE Influenza Type B Antigen Negative For Type B NEGATIVE SARS-CoV-2, RNA, NAAT NEGATIVE SARS CoV-2 NEGATIVE Current Medications Medications (Trade) Dose Ordered Sig/Dandre Route PRN Reason Start Time Stop Time Status Last Admin Dose Admin Albumin Human 50 ml @ 0 mls/hr Q6H IV 08/13/24 14:30 08/16/24 14:29 08/15/24 15:28 1 MLS/HR Albumin Human 200 ml @ 0 mls/hr AD IV 08/15/24 10:30 08/16/24 10:29 Ceftriaxone Sodium (ROCEphine 1G INJ) 1 gm Q12H IVPB 08/13/24 13:00 08/23/24 12:59 08/15/24 13:48 1 GM Dextrose (D50w) 50 ml AD PRN IV HYPOGLYCEMIA PROTOCOL 08/13/24 13:00 09/12/24 12:59 Glucagon (Glucagon 1mg Kit) 1 mg AD PRN IM HYPOGLYCEMIA PROTOCOL 08/13/24 13:00 09/12/24 12:59 Home Med (Home Medication) (Carboxymethylcellulose Sodium (A... QID OP 08/15/24 17:00 09/14/24 16:59 Home Med (Home Medication) (Eltrombopag Olamine (Promac... DAILY PO 08/16/24 09:00 09/15/24 08:59 Home Med (Home Medication) (Lipase/ Protease/ Amyl... TID PO 08/15/24 21:00 09/14/24 20:59 Insulin Human Regular (humuLIN R 100 UNIT/ML 3ML) INSULIN SLIDING SCAL... ACHS SQ 08/13/24 16:30 09/12/24 16:29 Lactulose (Constulose 20gm/ 30ml Udcup) 30 gm Q6H PO 08/13/24 13:00 09/12/24 12:59 08/15/24 13:48 30 GM Pantoprazole Sodium (PROTonix 40MG INJ) 40 mg Q24H IVP 08/13/24 13:30 09/12/24 13:29 08/15/24 13:48 40 MG Rifaximin (Xifaxan) 550 mg Q12H PO 08/13/24 13:00 09/12/24 12:59 08/15/24 13:48 550 MG Sodium Chloride 1,000 ml @ 50 mls/hr Q20H IV 08/13/24 13:00 08/14/24 09:27 DC 08/13/24 13:08 50 MLS/HR Thiamine HCl (Vitamin B-1) 100 mg Q24H IVP 08/13/24 13:00 09/12/24 12:59 08/15/24 13:48 100 MG DIAGNOSTICS / RADIOLOGY: PATIENT: RUMA SAINI MR#: [id number] : 1955 SEX: M AGE: 68 LOCATION: 4DH ORDER 2300 STATUS: ADM IN REPORT#: [id number] SERVICE 0600 REASON: Diagnostic and therapeutic ORDERING PHYSICIAN: CAT LIPSCOMB MD PROCEDURE: PARA ABD - US ABDOMINAL PARACENTESIS IR US ABDOMINAL PARACENTESIS IR REASON: Diagnostic and therapeutic TECHNIQUE: Paracentesis was performed with ultrasound guidance. The puncture site was selected in the Right lower quadrant and overlying skin prepped and draped in a sterile fashion. 1% Xylocaine infiltration was performed. Catheter was placed in the fluid using trocar technique. 4 L were removed. Fluid sample was submitted for laboratory evaluation. The patient showed no evidence of complication during the procedure. IMPRESSION: 1. Ultrasound-guided paracentesis. DICTATED BY: TYLER NAIR MD DATE: 08/15/241234 ELECTRONICALLY SIGNED BY: TYLER NAIR MD DATE: 08/15/24 1238 PATIENT: RUMA SAINI MR#: [id number] : 1955 SEX: M AGE: 68 LOCATION: 4DH ORDER 1115 STATUS: ADM IN REPORT#: [id number] SERVICE 1114 REASON: SHORTNESS of BREATH ORDERING PHYSICIAN: TYLER NAIR MD PROCEDURE: CXR1VW - CHEST 1VW ADDENDUM REPORT Images show clear lungs. Heart size is normal. There is no vascular congestion. There is been previous median sternotomy. There are no acute findings and no change compared to prior study 08/13/2024. There was an incorrect history of a left chest pigtail catheter, this was placed in a different patient. This patient has no history of catheter placement. DICTATED BY: TYLER NAIR MD DATE: 08/15/24 1451 ELECTRONICALLY SIGNED BY: TYLER NAIR MD DATE: 08/15/24 1454 CHEST 1VW REASON: POST LT CHEST PIGTAIL DRAIN PLACEMENT COMPARISON: 08/13/2024 on the postprocedure chest x-ray and chest where a problem with the catheter is available chest, no pneumothorax can be a recent order a nonwas there on the superficial draining cellulitis previous sternotomy and no pneumothorax...: FINDINGS: Single view of the chest was obtained. Lungs are clear. Heart size is normal. There is no pulmonary vascular congestion. Mediastinum and bony thorax appear unremarkable. There is been a previous median sternotomy. There is no pneumothorax. The 8 Persian pigtail catheter is not well seen on this image. IMPRESSION: 1. No pneumothorax following left anterior 8 Persian pigtail catheter placement. DICTATED BY: TYLER NAIR MD DATE: 08/15/24 1244 ELECTRONICALLY SIGNED BY: TYLER NAIR MD DATE: 08/15/24 1449 ASSESSMENT: Grade 3 hepatic encephalopathy, POA Decompensated cirrhosis of the liver with ascites and encephalopathy, POA Recent history of tips, performed two weeks ago in [facility], POA Suspected post tips hepatic encephalopathy, POA Rule out occult infection, POA Rule out active GI bleeding, POA History of recurrent ascites, POA History of hypertension, POA History of multivessel coronary artery disease with prior history of CABG, POA Type 2 diabetes mellitus, POA History of chronic thrombocytopenia, POA Prior history of esophageal varices requiring banding in 2022, POA Acute on Chronic Anemia POA PLAN: Patient admitted to telemetry floor Patient on GI DIET/ BLAND DIET Continue on lactulose 30 g q.6 hours and rifaximin 550 mg b.i.d. Monitor closely for signs of GI bleeding, obtain occult stool guaiac, monitor closely for melena, hematemesis, hematochezia Await blood culture and stool occult blood results Continue patient on empiric antibiotic prophylaxis with Rocephin Continue patient on IV Protonix 40 mg daily Discussed with to see if we can obtain list of home medications once available All labs will be repeated in the morning ATTESTATION BY PHYSICIAN I have seen and examined the patient. I reviewed the documentation, medical decision making, and treatment plan as noted by the mid-level provider above. I agree with the findings and plan of care. Hernandez Vincent MD, KEERTI K MD Aug 15, 2024 16:17
[2024-08-15] MEDS: (Carboxymethylcellulose Sodium (Artificial Tears) 1 DROP) OP SCH (17:00)
[2024-08-15 20:00] VITALS: BP 116/52; PULSE 73; RESP 18; TEMP 98.3; O2SAT 100
--- NOTE | 2024-08-15 20:15 | CONS ---
GASTROENTEROLOGY CONSULTATION NOTE Date of Consultation: Aug 15, 2024 Time of Consultation: 20:15 History of Present Illness: This is a 68-year-old male with past medical history of CAD, alcoholic liver cirrhosis, chronic thrombocytopenia, recurrent ascites, recent TIPS done in [place] 2 weeks ago, type 2 diabetes who presented due to confusion. No overt GI bleeding. Abdominal ultrasound on admission revealing cirrhotic liver with moderate ascites. TIPS shunt was evaluated for patency. He had a paracentesis today with removal of 4 L of fluid. We were consulted due to concern for GI bleed and anemia. Review of Systems: CONSTITUTIONAL: No malaise or change in sensation of wellbeing. ENMT: No rhinorrhea, otorrhea, sinus pain, ear ache. CARDIOVASCULAR: No angina, palpitations, orthopnea or paroxysmal dyspnea. RESPIRATORY: No SOB. GASTROINTESTINAL: No abdominal pain, nausea, vomiting, diarrhea, hematemesis, melena or change in the patient's habitual bowel movements consistency/number. GENITOURINARY: No dysuria, hematuria or change in bladder continence. MUSCULOSKELETAL: No new muscle pain or decrease in muscular strength. No new joint swelling, redness or tenderness. SKIN: No new rash. Past Medical History: PAST MEDICAL HISTORY: Prior medical history including hypertension, hyperlipidemia, history of alcoholic liver cirrhosis, history of chronic thrombocytopenia, type 2 diabetes mellitus, multivessel coronary artery disease, history of prior esophageal varices requiring banding in 2022, history of recurrent ascites PAST SURGICAL HISTORY: Recent history of tips placement in [facility], two weeks ago, history of coronary artery bypass grafting in 2022, appendectomy at the age of 14, history of recurrent paracentesis for management of tense ascites PAST SOCIAL HISTORY: Quit alcohol 25 years ago, denies significant smoking, 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 HEENT: No sinus tenderness. Tympanic membranes were not examined. No rhinorrhea. Oral pharyngeal mucosa is pink, moist and within normal limits. Neck is supple with no cervical lymphadenopathy, thyromegaly or JVD. CHEST: Inspection, palpation and percussion of the chest were unremarkable. Lung auscultation revealed normal breath sounds bilaterally. CARDIAC: PMI is within normal limits. Heart sounds are regular. Normal S1, S2. No gallop or murmur. ABD: Soft, non-tender and not distended. No peritoneal signs on palpation. No organomegaly. Normal bowel sounds. EXT: No cyanosis or clubbing. No edema. SKIN: Intact. No rashes. JOINTS: No evidence of synovitis or acute arthritis. NEURO: Alert and oriented to name, place and person. Cranial nerve examination is unremarkable. No focal motor deficits. Normal speech. Gait is normal. Strength is normal. Vital Sign (Last 24 Hours) 08/15/24 08/15/24 08:00 16:05 Temp 97.9 Pulse 60 Resp 16 B/P (MAP) 146/64 Pulse Ox 99 O2 Delivery Room Air O2 Flow Rate 0 FiO2 21 Intake & Output (last 24hrs) 08/14/24 08/14/24 08/15/24 15:00 23:00 07:00 Intake Total 270.0 ml Balance 270.0 ml Laboratory: [ ] Laboratory: Test 08/15/24 19:30 08/15/24 10:30 08/15/24 04:51 08/14/24 11:50 Range/Units Whole Blood Glucose 125 H 70-110 MG/DL Body Fluid Source ASCITES Body Fluid Volume 4000 mL Body Fluid Color RED H LT YELLOW Body Fluid Supernatant Appearance CLOUDY H CLEAR Body Fluid WBC 175 /cu. mm. Body Fluid RBC 14069 /cu. mm. Body Fluid Neutrophils 3.0 % Body Fluid Lymphocytes 68 % Body Fluid Monocytes % 7 % Body Fluid Macrophages (%) 18 Body Fluid Mesothelial Cells (%) 4 % White Blood Count 2.0 L 4.8-10.8 K/uL Red Blood Count 2.52 L 4.50-6.20 MIL/uL Hemoglobin 7.5 L 14.0-18.0 g/dL Hematocrit 22.4 L 42-54 % Mean Corpuscular Volume 88.9 79-99 fL Mean Corpuscular Hemoglobin 29.8 27.0-33.0 pg Mean Corpuscular Hemoglobin Concent 33.5 32.0-36.0 g/dL Red Cell Distribution Width 16.0 H 11.0-15.5 % Platelet Count 67 L 130-400 K/uL Mean Platelet Volume 10.0 7.5-10.5 fL Immature Granulocyte % (Auto) 0.0 0-1 % Neutrophils (%) (Auto) 69.0 40.0-77.0 % Lymphocytes (%) (Auto) 19.0 L 21.0-51.0 % Monocytes (%) (Auto) 7.5 3.0-13.0 % Eosinophils (%) (Auto) 4.5 0.0-8.0 % Basophils (%) (Auto) 0.0 0.0-5.0 % Neutrophils # (Auto) 1.4 L 1.8-7.7 K/uL Lymphocytes # (Auto) 0.4 L 1.0-4.8 K/uL Monocytes # (Auto) 0.2 0.1-1.0 K/uL Eosinophils # (Auto) 0.09 0.00-0.70 K/uL Basophils # (Auto) 0.00 0.00-0.20 K/uL Absolute Immature Granulocyte (auto 0.00 0-1 K/uL Nucleated Red Blood Cells 0.0 0.0-0.19 % Sodium Level 144 136-145 mmol/L Potassium Level 3.5 3.5-5.1 mmol/L Chloride Level 111 101-111 mmol/L Carbon Dioxide Level 22 21-32 mmol/L Blood Urea Nitrogen 20 H 7-18 mg/dL Creatinine 1.1 0.5-1.3 mg/dL Glomerular Filtration Rate Calc 73 >90 mL/min Random Glucose 97 70-105 mg/dL Total Calcium 8.3 L 8.5-10.1 mg/dL Total Bilirubin 1.6 H 0.2-1.0 mg/dL Aspartate Amino Transf (AST/SGOT) 25 10-37 U/L Alanine Aminotransferase (ALT/SGPT) 29 12-78 U/L Alkaline Phosphatase 123 50-136 U/L Ammonia 47 H 11-32 umol/L Total Protein 5.1 L 6.0-8.3 g/dL Albumin 2.8 L 3.5-5.0 g/dL Stool Occult Blood NEGATIVE NEGATIVE Test 08/14/24 06:53 Range/Units Segmented Neutrophils % 82 H 40-70 % Lymphocytes % (Manual) 14 L 22-44 % Monocytes % (Manual) 3 2-9 % Eosinophils % (Manual) 1 1-6 % Differential Comment MANUAL DIFFERENTIAL White Cell Morphology Comment Platelet Morphology Comment DECREASED Red Blood Cell Morphology ANISO 1+ Magnesium Level 1.90 1.80-2.40 mg/dL Current Medications Medications (Trade) Dose Ordered Sig/Dandre Route PRN Reason Start Time Stop Time Status Last Admin Dose Admin Albumin Human 50 ml @ 0 mls/hr Q6H IV 08/13/24 14:30 08/16/24 14:29 08/15/24 15:28 1 MLS/HR Albumin Human 200 ml @ 0 mls/hr AD IV 08/15/24 10:30 08/16/24 10:29 Ceftriaxone Sodium (ROCEphine 1G INJ) 1 gm Q12H IVPB 08/13/24 13:00 08/23/24 12:59 08/15/24 13:48 1 GM Dextrose (D50w) 50 ml AD PRN IV HYPOGLYCEMIA PROTOCOL 08/13/24 13:00 09/12/24 12:59 Glucagon (Glucagon 1mg Kit) 1 mg AD PRN IM HYPOGLYCEMIA PROTOCOL 08/13/24 13:00 09/12/24 12:59 Home Med (Home Medication) (Carboxymethylcellulose Sodium (A... QID OP 08/15/24 17:00 09/14/24 16:59 Home Med (Home Medication) (Eltrombopag Olamine (Promac... DAILY PO 08/16/24 09:00 09/15/24 08:59 Home Med (Home Medication) (Lipase/ Protease/ Amyl... TID PO 08/15/24 21:00 09/14/24 20:59 Insulin Human Regular (humuLIN R 100 UNIT/ML 3ML) INSULIN SLIDING SCAL... ACHS SQ 08/13/24 16:30 09/12/24 16:29 Lactulose (Constulose 20gm/ 30ml Udcup) 30 gm Q6H PO 08/13/24 13:00 09/12/24 12:59 08/15/24 13:48 30 GM Pantoprazole Sodium (PROTonix 40MG INJ) 40 mg Q24H IVP 08/13/24 13:30 09/12/24 13:29 08/15/24 13:48 40 MG Rifaximin (Xifaxan) 550 mg Q12H PO 08/13/24 13:00 09/12/24 12:59 08/15/24 13:48 550 MG Sodium Chloride 1,000 ml @ 50 mls/hr Q20H IV 08/13/24 13:00 08/14/24 09:27 DC 08/13/24 13:08 50 MLS/HR Thiamine HCl (Vitamin B-1) 100 mg Q24H IVP 08/13/24 13:00 09/12/24 12:59 08/15/24 13:48 100 MG Diagnostics / Radiology: [COPY/PASTE HERE IF NO REPORTS PLEASE DELETE SECTION] Assessment: Concern for GI bleed Acute blood loss anemia Recurrent ascites despite TIPS Hepatic encephalopathy likely secondary to recent tips Cirrhosis Plan: 1. NPO 2. EGD in AM. I have discussed the risks, benefits, alternatives, and potential complications. Questions were answered and they agree to proceed. 3. Pantoprazole drip 80 mg IV bolus and then 8 mg/hr IV infusion for 72 hours 4. Octreotide 50 mcg IV bolus and then 50 mcg/hr IV infusion for 72 hours 5. Recommend checking Hg every 6 hours and transfuse to goal Hg >7. Please do not overtransfuse 6. Please contact our service if the patient has significant bleeding such as hematemesis and we can proceed sooner with the EGD Thanks you for allowing us to participate in the care of this patient! RAMILA CASH [employer] Aug 15, 2024 20:15
[2024-08-15] MEDS: LIPASE PO SCH (20:51)
[2024-08-15] MEDS: AMYLASE PO SCH (20:51)
[2024-08-15] MEDS: PROTEASE PO SCH (20:51)
[2024-08-16] VITALS (15 sets, daily range): BP systolic 95–142; BP diastolic 43–60; PULSE 55–77; RESP 14–19; TEMP 97.3–98.7; O2SAT 100
[2024-08-16 05:56] LABS: EOSINOPHILS # (AUTO) 0.12 K/uL (0.00-0.70); EOSINOPHILS % (AUTO) 4.5 % (0.0-8.0); HEMATOCRIT 22.7 % (42-54); IMMATURE GRANULOCYTE ABSOLUTE 0.01 K/uL (0-1); LYMPHOCYTES # (AUTO) 0.6 K/uL (1.0-4.8); LYMPHOCYTES % (AUTO) 21.3 % (21.0-51.0); MEAN CORPUSCULAR HEMOGLOBIN 29.5 pg (27.0-33.0); MEAN CORPUSCULAR HGB CONC 32.6 g/dL (32.0-36.0); MEAN CORPUSCULAR VOLUME 90.4 fL (79-99); MONOCYTES # (AUTO) 0.2 K/uL (0.1-1.0); MONOCYTES % (AUTO) 8.2 % (3.0-13.0); NEUTROPHILS # (AUTO) 1.8 K/uL (1.8-7.7); NEUTROPHILS % (AUTO) 65.6 % (40.0-77.0); PLATELET COUNT (AUTO) 62 K/uL (130-400); RED BLOOD CELL COUNT(AUTO) 2.51 MIL/uL (4.50-6.20); RED CELL DISTRIBUTION WIDTH 16.1 % (11.0-15.5); WHITE BLOOD COUNT (AUTO) 2.7 K/uL (4.8-10.8)
[2024-08-16 06:09] LABS: CREATININE 0.9 mg/dL (0.5-1.3); POTASSIUM 3.6 mmol/L (3.5-5.1)
[2024-08-16 08:45] LABS: EOSINOPHILS % (MANUAL) 3 % (1-6); LYMPHOCYTES % (MANUAL) 20 % (22-44); MAN.DIFF COMMENT-IMPRESSION MANUAL DIFFERENTIAL; MONOCYTES % (MANUAL) 3 % (2-9); PLATELET MORPHOLOGY COMMENT DECREASED; SEGMENTED NEUTROPHILS % 74 % (40-70); TOTAL CELLS COUNTED 100
--- NOTE | 2024-08-16 08:54 | HMCIMG ---
CHEST 2VWS REASON: Choked on food, asymptomatic, rule out aspiration COMPARISON: None FINDINGS: Two views of the chest were obtained. Lungs are clear. Heart size is normal. There is no pulmonary vascular congestion. Mediastinum and bony thorax appear unremarkable. There has been a previous median sternotomy. IMPRESSION: 1. No acute process seen in the chest and no interval change.
[2024-08-16] MEDS: (Eltrombopag Olamine (Promacta) 1 TAB) PO SCH (09:00)
--- NOTE | 2024-08-16 09:24 | PN ---
[facility] PROGRESS NOTE Date of Service: Aug 16, 2024 Time of Service: 09:17 SUBJECTIVE: 08/13/2024- 68-year-old male with underlying history of coronary artery disease, history of alcoholic liver cirrhosis, chronic thrombocytopenia, history of recurrent ascites requiring outpatient serial paracentesis, recent history of tips procedure done in [place], [place] about two weeks ago, type 2 diabetes mellitus who presented to the ER for further evaluation of confusion that started today. Patient was brought in by his co-worker for further evaluation of confusion where he was noted to be very slow to respond to answers and then he was not answering questions appropriately. Family denies any recent history of fall. Patient states that he underwent tips procedure for recurrent ascites in [facility]. He is usually seen by [facility] and was hospitalized for about two days post TIPS. Patient and family denies noticing episodes of melena, hematochezia or hematemesis. Last paracentesis was about two weeks ago while he was hospitalized. Denies significant abdominal distention postprocedure. Patient denies any abdominal pain. states that patient has not been compliant with lactulose at home. He may have missed a dose of lactulose yester day evening. 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 On presentation to the hospital, patient was noted to be afebrile with T-max of 98.2 F, heart rate of 95, blood pressure of 162/66. Labs on presentation showed WBC count of 4400, hemoglobin of 10.3, platelet count of 422890. CMP remarkable for sodium of 142, potassium 4.5, BUN of 20, creatinine of 1.2, ammonia was noted to be elevated at 140. Patient underwent further evaluation with CT head without contrast which showed no acute intracranial bleed. Chest x-ray showed no significant infiltrates. Patient will be admitted for further management of decompensated cirrhosis of the liver with hepatic encephalopathy post tips. He will undergo further workup with ultrasound to ensure tips patency. We will monitor closely for signs of infection, as well as signs of GI bleeding. 08/14/2024- The patient was seen this morning at the bedside. The patient was stable and oriented to person, place, and time. Vital signs were stable. Blood culture an occult blood stool results remain pending. CT abdomen and pelvis findings: cirrhotic morphology of the liver with a moderate amount of ascites. Mesenteric edema. Splenomegaly. Tips stent in place. Fluid filled loops of small bowel, which may represent enteritis. today's laboratory results WBC 2.4 previously 4.4 , hemoglobin 7.7 previously 8.4, platelets 65 previously 110, sodium 145, potassium 4, creatinine 0.9, GFR 92, lactic acid 1.8, ammonia decreased from 140-46. The patient remains on the following retreatment lactulose 30 g q.6 hour, rifaximin 550 mg b.i.d., ceftriaxone 1 g IV daily. A diagnostic and therapeutic paracentesis is planned for tomorrow. Medication reconciliation is pending as we await the list of home medications. Repeat lab oratory studies are scheduled for tomorrow morning. The patient will continue to be observed and monitored closely. 08/15/2024 - the patient was seen this morning at bedside. The patient is stable and oriented to time place person. Patient's vitals are stable temperature 98.4, pulse 65, respiratory rate 20, blood pressure 124/54, saturating at 100% at room air. Patient had undergone paracentesis draining 4 L of red cloudy fluid which is negative for any infectious process. Labs show WBC 2 , hemoglobin 7.5, platelet count 67 and chemistries show sodium 144, potassium 3.5, creatinine 1.1, BUN 20, Jonathan 1.6, ammonia 47, total protein 5.1, albumin 2.8. Ascitic fluid analysis fluid WBC -175, fluid neutrophils 3.0 , fluid RBCs 09275. Stool occult blood came back negative. Given the patient's recent tips surgery and patient's hemoglobin and ascitic fluid, gastroenterology has been consulted. Home medication has been reconciled . patient continues to be on lactulose and rifaximin. Patient will be monitored closely. Awaiting recommendations from Gastroenterology. 08/16/2024- the patient was seen this morning at bedside. The patient is stable and oriented to time place person. Patient is consulted for Gastroenterology recent TIPS surgery and anemia, and they scheduled for EGD this morning, patient awaiting EGD. Patient's vitals are stable temperature 97.9, pulse 72, respiratory rate 15 , blood pressure 142/57 saturating at 100% at room air . labs show WBC 2.7, hemoglobin 7.4 And chemistries show sodium 143, potassium 3.6, creatinine 0.9, BUN 17. Patient was started on pantoprazole drip and octreotide drip by the gastro, patient continues to be on lactulose and rifaximin. Patient choked on food particles yesterday and x-ray is negative for any aspiration and patient is asymptomatic. Patient will be followed closely. Awaiting Gastroenterology recommendations. REVIEW OF SYSTEMS CONSTITUTIONAL: Reports having generalized malaise, asthenia NEUROLOGICAL: Family noticed that patient was having significant confusion and memory issues today, he has been more sleepy as well ENT: No hearing loss, otalgia, otorrhea, rhinitis, rhinorrhea, hoarseness, or sore throat. CARDIOVASCULAR: Denies any exertional angina, dyspnea on exertion, orthopnea, paroxysmal nocturnal dyspnea, palpitations, life-threatening arrhythmias, claudication. PULMONARY: Denies any shortness of breath, cough, phlegm/sputum, hemoptysis, pleuritic chest pain. SLEEP: Denies morning headaches, daytime somnolence or napping. Denies difficulty falling asleep, staying asleep, waking from sleep. Denies knowledge of snoring. GASTROINTESTINAL: Denies any type of dysphagia to either liquids or solids. Denies nausea, vomiting, pyrosis, early satiety, abdominal pain, diarrhea, constipation, or changes in stool consistency or caliber. Denies coffee-ground emesis, hematemesis, hematochezia, or melanotic stools. GENITOURINARY: Denies frequency, urgency, nocturia, hematuria or incontinence (Storage/Irritative symptoms.) Low urinary stream, straining to void, urinary intermittency or hesitancy, splitting of the voiding stream, terminal dribbling. ENDOCRINOLOGIC: Denies polyuria, polydipsia, polyphagia or heat/cold intolerances. HEMATOLOGIC: Denies thrombophilia/previous clots, or coagulopathy/bleeding disorders. ONCOLOGIC: Denies personal history of malignancy. DERMATOLOGIC: Denies rashes or pruritus. PSYCHIATRIC: Denies any suicidal or homicidal ideation. Denies hallucinations. PHYSICAL EXAM GENERAL APPEARANCE: The patient is lethargic, able to tell me his name and he was able to tell me that he is in the hospital, does not recall time NEUROLOGICAL: Cranial nerves II-XII grossly intact. Motor is 5/5 in bilateral upper and lower extremities proximal to distal. No sensory deficits. Asterixis noted of bilateral upper extremity HEENT: Face is symmetric. Pupils are equal and reactive. Extraocular movements are intact. NECK: Supple. No JVD. No thyromegaly. No submental, submandibular, pre- /postauricular, occipital or supraclavicular lymphadenopathy. CHEST: Normal chest expansion. No Telemetry. LUNGS: Absence of any rales, rhonchi or any wheezing. CARDIOVASCULAR: Regular. S1 and S2 normal. No appreciable rubs, murmurs or gallops. ABDOMEN: Abdomen is mildly distended, no significant tenderness to palpation, bowel sounds are normoactive : Deferred. No Patiño. EXTREMITIES: Non-edematous and not cyanotic. No clubbing. Good capillary refill. SKIN: No skin breakdown. Vital Signs (last 8hr) Date Time Temp Pulse Resp B/P (MAP) Pulse Ox O2 Delivery O2 Flow Rate FiO2 08/16/24 08:00 97.9 72 15 142/57 100 Room Air 0.0 08/16/24 04:00 98.2 70 17 123/51 98 Room Air LABS: Laboratory: Test 08/16/24 05:31 08/16/24 05:10 08/15/24 10:30 08/15/24 04:51 Range/Units White Blood Count 2.7 L 4.8-10.8 K/uL Red Blood Count 2.51 L 4.50-6.20 MIL/uL Hemoglobin 7.4 L 14.0-18.0 g/dL Hematocrit 22.7 L 42-54 % Mean Corpuscular Volume 90.4 79-99 fL Mean Corpuscular Hemoglobin 29.5 27.0-33.0 pg Mean Corpuscular Hemoglobin Concent 32.6 32.0-36.0 g/dL Red Cell Distribution Width 16.1 H 11.0-15.5 % Platelet Count 62 L 130-400 K/uL Mean Platelet Volume 10.3 7.5-10.5 fL Immature Granulocyte % (Auto) 0.4 0-1 % Neutrophils (%) (Auto) 65.6 40.0-77.0 % Lymphocytes (%) (Auto) 21.3 21.0-51.0 % Monocytes (%) (Auto) 8.2 3.0-13.0 % Eosinophils (%) (Auto) 4.5 0.0-8.0 % Basophils (%) (Auto) 0.0 0.0-5.0 % Neutrophils # (Auto) 1.8 1.8-7.7 K/uL Lymphocytes # (Auto) 0.6 L 1.0-4.8 K/uL Monocytes # (Auto) 0.2 0.1-1.0 K/uL Eosinophils # (Auto) 0.12 0.00-0.70 K/uL Basophils # (Auto) 0.00 0.00-0.20 K/uL Absolute Immature Granulocyte (auto 0.01 0-1 K/uL Segmented Neutrophils % 74 H 40-70 % Lymphocytes % (Manual) 20 L 22-44 % Monocytes % (Manual) 3 2-9 % Eosinophils % (Manual) 3 1-6 % Nucleated Red Blood Cells 0.0 0.0-0.19 % Differential Comment MANUAL DIFFERENTIAL White Cell Morphology Comment Platelet Morphology Comment DECREASED Red Blood Cell Morphology See comments Sodium Level 143 136-145 mmol/L Potassium Level 3.6 3.5-5.1 mmol/L Chloride Level 113 H 101-111 mmol/L Carbon Dioxide Level 24 21-32 mmol/L Blood Urea Nitrogen 17 7-18 mg/dL Creatinine 0.9 0.5-1.3 mg/dL Glomerular Filtration Rate Calc 92 >90 mL/min Random Glucose 86 70-105 mg/dL Total Calcium 8.1 L 8.5-10.1 mg/dL Whole Blood Glucose 89 70-110 MG/DL Body Fluid Source ASCITES Body Fluid Volume 4000 mL Body Fluid Color RED H LT YELLOW Body Fluid Supernatant Appearance CLOUDY H CLEAR Body Fluid WBC 175 /cu. mm. Body Fluid RBC 61851 /cu. mm. Body Fluid Neutrophils 3.0 % Body Fluid Lymphocytes 68 % Body Fluid Monocytes % 7 % Body Fluid Macrophages (%) 18 Body Fluid Mesothelial Cells (%) 4 % Total Bilirubin 1.6 H 0.2-1.0 mg/dL Aspartate Amino Transf (AST/SGOT) 25 10-37 U/L Alanine Aminotransferase (ALT/SGPT) 29 12-78 U/L Alkaline Phosphatase 123 50-136 U/L Ammonia 47 H 11-32 umol/L Total Protein 5.1 L 6.0-8.3 g/dL Albumin 2.8 L 3.5-5.0 g/dL Test 08/14/24 11:50 Range/Units Stool Occult Blood NEGATIVE NEGATIVE Current Medications Medications (Trade) Dose Ordered Sig/Dandre Route PRN Reason Start Time Stop Time Status Last Admin Dose Admin Albumin Human 50 ml @ 0 mls/hr Q6H IV 08/13/24 14:30 08/16/24 14:29 08/16/24 02:49 50 MLS/HR Albumin Human 200 ml @ 0 mls/hr AD IV 08/15/24 10:30 08/16/24 10:29 Ceftriaxone Sodium (ROCEphine 1G INJ) 1 gm Q12H IVPB 08/13/24 13:00 08/23/24 12:59 08/16/24 00:48 1 GM Dextrose (D50w) 50 ml AD PRN IV HYPOGLYCEMIA PROTOCOL 08/13/24 13:00 09/12/24 12:59 Glucagon (Glucagon 1mg Kit) 1 mg AD PRN IM HYPOGLYCEMIA PROTOCOL 08/13/24 13:00 09/12/24 12:59 Home Med (Home Medication) (Carboxymethylcellulose Sodium (A... QID OP 08/15/24 17:00 09/14/24 16:59 Home Med (Home Medication) (Eltrombopag Olamine (Promac... DAILY PO 08/16/24 09:00 09/15/24 08:59 Home Med (Home Medication) (Lipase/ Protease/ Amyl... TID PO 08/15/24 21:00 09/14/24 20:59 Insulin Human Regular (humuLIN R 100 UNIT/ML 3ML) INSULIN SLIDING SCAL... ACHS SQ 08/13/24 16:30 09/12/24 16:29 Lactulose (Constulose 20gm/ 30ml Udcup) 30 gm Q6H PO 08/13/24 13:00 09/12/24 12:59 08/15/24 20:42 30 GM Pantoprazole Sodium (PROTonix 40MG INJ) 40 mg Q24H IVP 08/13/24 13:30 09/12/24 13:29 08/15/24 13:48 40 MG Rifaximin (Xifaxan) 550 mg Q12H PO 08/13/24 13:00 09/12/24 12:59 08/15/24 13:48 550 MG Sodium Chloride 1,000 ml @ 50 mls/hr Q20H IV 08/13/24 13:00 08/14/24 09:27 DC 08/13/24 13:08 50 MLS/HR Thiamine HCl (Vitamin B-1) 100 mg Q24H IVP 08/13/24 13:00 09/12/24 12:59 08/15/24 13:48 100 MG DIAGNOSTICS / RADIOLOGY: PATIENT: RUMA SAINI MR#: [id number] : 1955 SEX: M AGE: 68 LOCATION: 4DH ORDER 49 STATUS: ADM IN REPORT#: [id number] SERVICE [id number] REASON: Choked on food, asymptomatic, rule out aspiration ORDERING PHYSICIAN: JUAN PABLO COLLINS MD PROCEDURE: CXR2VW - CHEST 2VWS CHEST 2VWS REASON: Choked on food, asymptomatic, rule out aspiration COMPARISON: None FINDINGS: Two views of the chest were obtained. Lungs are clear. Heart size is normal. There is no pulmonary vascular congestion. Mediastinum and bony thorax appear unremarkable. There has been a previous median sternotomy. IMPRESSION: 1. No acute process seen in the chest and no interval change. DICTATED BY: TYLER NAIR MD DATE: 08/16/24850 ELECTRONICALLY SIGNED BY: TYLER NAIR MD DATE: 08/16/24853 ASSESSMENT: Grade 3 hepatic encephalopathy, POA Decompensated cirrhosis of the liver with ascites and encephalopathy, POA Recent history of tips, performed two weeks ago in [facility], POA Suspected post tips hepatic encephalopathy, POA Rule out occult infection, POA Rule out active GI bleeding, POA History of recurrent ascites, POA History of hypertension, POA History of multivessel coronary artery disease with prior history of CABG, POA Type 2 diabetes mellitus, POA History of chronic thrombocytopenia, POA Prior history of esophageal varices requiring banding in 2022, POA Acute on Chronic Anemia POA PLAN: Patient admitted to telemetry floor Patient on GI DIET/ BLAND DIET Continue on lactulose 30 g q.6 hours and rifaximin 550 mg b.i.d. Monitor closely for signs of GI bleeding, obtain occult stool guaiac, monitor closely for melena, hematemesis, hematochezia Await blood culture and stool occult blood results Continue patient on empiric antibiotic prophylaxis with Rocephin Continue patient on IV Protonix 40 mg daily Discussed with to see if we can obtain list of home medications once ata ilable All labs will be repeated in the morning ATTESTATION BY PHYSICIAN I have seen and examined the patient. I reviewed the documentation, medical decision making, and treatment plan as noted by the mid-level provider above. I agree with the findings and plan of care. Hernandez Vincent MD, KEERTI K MD Aug 16, 2024 09:24
[2024-08-16] MEDS ORDERED: proPOFol 10 MG/ML 20ML VIAL IV ONE (11:38)
[2024-08-17 03:21] VITALS: BP 108/45; PULSE 77; RESP 18; TEMP 98
[2024-08-17 05:10] LABS: EOSINOPHILS # (AUTO) 0.17 K/uL (0.00-0.70); EOSINOPHILS % (AUTO) 5.2 % (0.0-8.0); HEMATOCRIT 23.8 % (42-54); IMMATURE GRANULOCYTE ABSOLUTE 0.01 K/uL (0-1); LYMPHOCYTES # (AUTO) 0.5 K/uL (1.0-4.8); LYMPHOCYTES % (AUTO) 15.5 % (21.0-51.0); MEAN CORPUSCULAR HEMOGLOBIN 30.6 pg (27.0-33.0); MEAN CORPUSCULAR VOLUME 89.8 fL (79-99); MONOCYTES # (AUTO) 0.2 K/uL (0.1-1.0); MONOCYTES % (AUTO) 5.8 % (3.0-13.0); NEUTROPHILS # (AUTO) 2.4 K/uL (1.8-7.7); NEUTROPHILS % (AUTO) 73.2 % (40.0-77.0); PLATELET COUNT (AUTO) 73 K/uL (130-400); RED BLOOD CELL COUNT(AUTO) 2.65 MIL/uL (4.50-6.20); RED CELL DISTRIBUTION WIDTH 16.2 % (11.0-15.5); WHITE BLOOD COUNT (AUTO) 3.3 K/uL (4.8-10.8)
[2024-08-17 05:24] LABS: CREATININE 0.8 mg/dL (0.5-1.3); POTASSIUM 3.4 mmol/L (3.5-5.1)
[2024-08-17 08:00] VITALS: BP 145/72; PULSE 91; RESP 19; TEMP 98.9
--- NOTE | 2024-08-17 10:56 | PN ---
[facility] PROGRESS NOTE Date of Service: Aug 17, 2024 Time of Service: 10:48 SUBJECTIVE: 08/13/2024- 68-year-old male with underlying history of coronary artery disease, history of alcoholic liver cirrhosis, chronic thrombocytopenia, history of recurrent ascites requiring outpatient serial paracentesis, recent history of tips procedure done in [place], [place] about two weeks ago, type 2 diabetes mellitus who presented to the ER for further evaluation of confusion that started today. Patient was brought in by his co-worker for further evaluation of confusion where he was noted to be very slow to respond to answers and then he was not answering questions appropriately. Family denies any recent history of fall. Patient states that he underwent tips procedure for recurrent ascites in [facility]. He is usually seen by [facility] and was hospitalized for about two days post TIPS. Patient and family denies noticing episodes of melena, hematochezia or hematemesis. Last paracentesis was about two weeks ago while he was hospitalized. Denies significant abdominal distention postprocedure. Patient denies any abdominal pain. states that patient has not been compliant with lactulose at home. He may have missed a dose of lactulose yester day evening. 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 On presentation to the hospital, patient was noted to be afebrile with T-max of 98.2 F, heart rate of 95, blood pressure of 162/66. Labs on presentation showed WBC count of 4400, hemoglobin of 10.3, platelet count of [id number]. CMP remarkable for sodium of 142, potassium 4.5, BUN of 20, creatinine of 1.2, ammonia was noted to be elevated at 140. Patient underwent further evaluation with CT head without contrast which showed no acute intracranial bleed. Chest x-ray showed no significant infiltrates. Patient will be admitted for further management of decompensated cirrhosis of the liver with hepatic encephalopathy post tips. He will undergo further workup with ultrasound to ensure tips patency. We will monitor closely for signs of infection, as well as signs of GI bleeding. 08/14/2024- The patient was seen this morning at the bedside. The patient was stable and oriented to person, place, and time. Vital signs were stable. Blood culture an occult blood stool results remain pending. CT abdomen and pelvis findings: cirrhotic morphology of the liver with a moderate amount of ascites. Mesenteric edema. Splenomegaly. Tips stent in place. Fluid filled loops of small bowel, which may represent enteritis. today's laboratory results WBC 2.4 previously 4.4 , hemoglobin 7.7 previously 8.4, platelets 65 previously 110, sodium 145, potassium 4, creatinine 0.9, GFR 92, lactic acid 1.8, ammonia decreased from 140-46. The patient remains on the following retreatment lactulose 30 g q.6 hour, rifaximin 550 mg b.i.d., ceftriaxone 1 g IV daily. A diagnostic and therapeutic paracentesis is planned for tomorrow. Medication reconciliation is pending as we await the list of home medications. Repeat lab oratory studies are scheduled for tomorrow morning. The patient will continue to be observed and monitored closely. 08/15/2024 - the patient was seen this morning at bedside. The patient is stable and oriented to time place person. Patient's vitals are stable temperature 98.4, pulse 65, respiratory rate 20, blood pressure 124/54, saturating at 100% at room air. Patient had undergone paracentesis draining 4 L of red cloudy fluid which is negative for any infectious process. Labs show WBC 2 , hemoglobin 7.5, platelet count 67 and chemistries show sodium 144, potassium 3.5, creatinine 1.1, BUN 20, Jonathan 1.6, ammonia 47, total protein 5.1, albumin 2.8. Ascitic fluid analysis fluid WBC -175, fluid neutrophils 3.0 , fluid RBCs 62806. Stool occult blood came back negative. Given the patient's recent tips surgery and patient's hemoglobin and ascitic fluid, gastroenterology has been consulted. Home medication has been reconciled . patient continues to be on lactulose and rifaximin. Patient will be monitored closely. Awaiting recommendations from Gastroenterology. 08/16/2024- the patient was seen this morning at bedside. The patient is stable and oriented to time place person. Patient is consulted for Gastroenterology recent TIPS surgery and anemia, and they scheduled for EGD this morning, patient awaiting EGD. Patient's vitals are stable temperature 97.9, pulse 72, respiratory rate 15 , blood pressure 142/57 saturating at 100% at room air . labs show WBC 2.7, hemoglobin 7.4 And chemistries show sodium 143, potassium 3.6, creatinine 0.9, BUN 17. Patient was started on pantoprazole drip and octreotide drip by the gastro, patient continues to be on lactulose and rifaximin. Patient choked on food particles yesterday and x-ray is negative for any aspiration and patient is asymptomatic. Patient will be followed closely. Awaiting Gastroenterology recommendations. 08/17/2024 - patient is seen at bedside, resting comfortably. Patient had undergone EGD and the results are as follows-grade 1 esophageal varices, gastritis -patchy moderate inflammation characterized by erosions and erythema was found in the gastric antrum, which has been biopsied and normal examined duodenum and they recommended the following-await pathology results, resume regular diet, continue present medications, outpatient visit in 1 week. Spoke with Radha , gastroenterology [employer] - she suggested that the TIPS has decreased flow velocity through the shunt which might have led to the ascites and suggested TIPS revision by IR. Patient informed that he has an appointment with his GI doctor on 08/18/2024. Patient is hemodynamically stable with temperature 99, pulse 91, respiratory rate 19, blood pressure 145/72, saturating at 100% at room air. Labs show WBC 3.3, hemoglobin increased to 8.1, chemistries show sodium 141, potassium 3.4, creatinine 0.8, BUN 14. Patient would be continued on current medications. REVIEW OF SYSTEMS CONSTITUTIONAL: Reports having generalized malaise, asthenia NEUROLOGICAL: Family noticed that patient was having significant confusion and memory issues today, he has been more sleepy as well ENT: No hearing loss, otalgia, otorrhea, rhinitis, rhinorrhea, hoarseness, or sore throat. CARDIOVASCULAR: Denies any exertional angina, dyspnea on exertion, orthopnea, paroxysmal nocturnal dyspnea, palpitations, life-threatening arrhythmias, claudication. PULMONARY: Denies any shortness of breath, cough, phlegm/sputum, hemoptysis, pleuritic chest pain. SLEEP: Denies morning headaches, daytime somnolence or napping. Denies difficulty falling asleep, staying asleep, waking from sleep. Denies knowledge of snoring. GASTROINTESTINAL: Denies any type of dysphagia to either liquids or solids. Denies nausea, vomiting, pyrosis, early satiety, abdominal pain, diarrhea, constipation, or changes in stool consistency or caliber. Denies coffee-ground emesis, hematemesis, hematochezia, or melanotic stools. GENITOURINARY: Denies frequency, urgency, nocturia, hematuria or incontinence (Storage/Irritative symptoms.) Low urinary stream, straining to void, urinary intermittency or hesitancy, splitting of the voiding stream, terminal dribbling. ENDOCRINOLOGIC: Denies polyuria, polydipsia, polyphagia or heat/cold intolerances. HEMATOLOGIC: Denies thrombophilia/previous clots, or coagulopathy/bleeding disorders. ONCOLOGIC: Denies personal history of malignancy. DERMATOLOGIC: Denies rashes or pruritus. PSYCHIATRIC: Denies any suicidal or homicidal ideation. Denies hallucinations. PHYSICAL EXAM GENERAL APPEARANCE: The patient is lethargic, able to tell me his name and he was able to tell me that he is in the hospital, does not recall time NEUROLOGICAL: Cranial nerves II-XII grossly intact. Motor is 5/5 in bilateral upper and lower extremities proximal to distal. No sensory deficits. Asterixis noted of bilateral upper extremity HEENT: Face is symmetric. Pupils are equal and reactive. Extraocular movements are intact. NECK: Supple. No JVD. No thyromegaly. No submental, submandibular, pre- /postauricular, occipital or supraclavicular lymphadenopathy. CHEST: Normal chest expansion. No Telemetry. LUNGS: Absence of any rales, rhonchi or any wheezing. CARDIOVASCULAR: Regular. S1 and S2 normal. No appreciable rubs, murmurs or gallops. ABDOMEN: Abdomen is mildly distended, no significant tenderness to palpation, bowel sounds are normoactive : Deferred. No Patiño. EXTREMITIES: Non-edematous and not cyanotic. No clubbing. Good capillary refill. SKIN: No skin breakdown. Vital Signs (last 8hr) Date Time Temp Pulse Resp B/P (MAP) Pulse Ox O2 Delivery O2 Flow Rate FiO2 08/17/24 08:00 99.0 91 19 145/72 100 Room Air 08/17/24 03:21 98.1 77 18 108/45 96 Room Air LABS: Laboratory: Test 08/17/24 04:43 08/17/24 04:38 08/16/24 05:31 Range/Units White Blood Count 3.3 L 4.8-10.8 K/uL Red Blood Count 2.65 L 4.50-6.20 MIL/uL Hemoglobin 8.1 L 14.0-18.0 g/dL Hematocrit 23.8 L 42-54 % Mean Corpuscular Volume 89.8 79-99 fL Mean Corpuscular Hemoglobin 30.6 27.0-33.0 pg Mean Corpuscular Hemoglobin Concent 34.0 32.0-36.0 g/dL Red Cell Distribution Width 16.2 H 11.0-15.5 % Platelet Count 73 L 130-400 K/uL Mean Platelet Volume 10.1 7.5-10.5 fL Immature Granulocyte % (Auto) 0.3 0-1 % Neutrophils (%) (Auto) 73.2 40.0-77.0 % Lymphocytes (%) (Auto) 15.5 L 21.0-51.0 % Monocytes (%) (Auto) 5.8 3.0-13.0 % Eosinophils (%) (Auto) 5.2 0.0-8.0 % Basophils (%) (Auto) 0.0 0.0-5.0 % Neutrophils # (Auto) 2.4 1.8-7.7 K/uL Lymphocytes # (Auto) 0.5 L 1.0-4.8 K/uL Monocytes # (Auto) 0.2 0.1-1.0 K/uL Eosinophils # (Auto) 0.17 0.00-0.70 K/uL Basophils # (Auto) 0.00 0.00-0.20 K/uL Absolute Immature Granulocyte (auto 0.01 0-1 K/uL Nucleated Red Blood Cells 0.0 0.0-0.19 % Sodium Level 141 136-145 mmol/L Potassium Level 3.4 L 3.5-5.1 mmol/L Chloride Level 111 101-111 mmol/L Carbon Dioxide Level 23 21-32 mmol/L Blood Urea Nitrogen 14 7-18 mg/dL Creatinine 0.8 0.5-1.3 mg/dL Glomerular Filtration Rate Calc 96 >90 mL/min Random Glucose 115 H 70-105 mg/dL Total Calcium 8.0 L 8.5-10.1 mg/dL Whole Blood Glucose 122 H 70-110 MG/DL Segmented Neutrophils % 74 H 40-70 % Lymphocytes % (Manual) 20 L 22-44 % Monocytes % (Manual) 3 2-9 % Eosinophils % (Manual) 3 1-6 % Differential Comment MANUAL DIFFERENTIAL White Cell Morphology Comment Platelet Morphology Comment DECREASED Red Blood Cell Morphology See comments Current Medications Medications (Trade) Dose Ordered Sig/Dandre Route PRN Reason Start Time Stop Time Status Last Admin Dose Admin Albumin Human 50 ml @ 0 mls/hr Q6H IV 08/13/24 14:30 08/16/24 14:29 DC 08/16/24 09:19 1 MLS/HR Albumin Human 200 ml @ 0 mls/hr AD IV 08/15/24 10:30 08/16/24 10:29 DC Ceftriaxone Sodium (ROCEphine 1G INJ) 1 gm Q12H IVPB 08/13/24 13:00 08/23/24 12:59 08/17/24 00:54 1 GM Dextrose (D50w) 50 ml AD PRN IV HYPOGLYCEMIA PROTOCOL 08/13/24 13:00 09/12/24 12:59 Glucagon (Glucagon 1mg Kit) 1 mg AD PRN IM HYPOGLYCEMIA PROTOCOL 08/13/24 13:00 09/12/24 12:59 Home Med (Home Medication) (Carboxymethylcellulose Sodium (A... QID OP 08/15/24 17:00 09/14/24 16:59 Home Med (Home Medication) (Eltrombopag Olamine (Promac... DAILY PO 08/16/24 09:00 09/15/24 08:59 Home Med (Home Medication) (Lipase/ Protease/ Amyl... TID PO 08/15/24 21:00 09/14/24 20:59 Insulin Human Regular (humuLIN R 100 UNIT/ML 3ML) INSULIN SLIDING SCAL... ACHS SQ 08/13/24 16:30 09/12/24 16:29 Lactulose (Constulose 20gm/ 30ml Udcup) 30 gm Q6H PO 08/13/24 13:00 09/12/24 12:59 08/17/24 09:50 30 GM Pantoprazole Sodium (PROTonix 40MG INJ) 40 mg Q24H IVP 08/13/24 13:30 09/12/24 13:29 08/16/24 13:30 40 MG Rifaximin (Xifaxan) 550 mg Q12H PO 08/13/24 13:00 09/12/24 12:59 08/17/24 00:53 550 MG Sodium Chloride 1,000 ml @ 50 mls/hr Q20H IV 08/13/24 13:00 08/14/24 09:27 DC 08/13/24 13:08 50 MLS/HR Thiamine HCl (Vitamin B-1) 100 mg Q24H IVP 08/13/24 13:00 09/12/24 12:59 08/16/24 13:31 100 MG DIAGNOSTICS / RADIOLOGY: [ ] ASSESSMENT: Grade 3 hepatic encephalopathy, POA Decompensated cirrhosis of the liver with ascites and encephalopathy, POA Recent history of tips, performed two weeks ago in [facility], POA Suspected post tips hepatic encephalopathy, POA Rule out occult infection, POA Rule out active GI bleeding, POA History of recurrent ascites, POA History of hypertension, POA History of multivessel coronary artery disease with prior history of CABG, POA Type 2 diabetes mellitus, POA History of chronic thrombocytopenia, POA Prior history of esophageal varices requiring banding in 2022, POA Acute on Chronic Anemia POA PLAN: Patient admitted to telemetry floor Patient on GI DIET/ BLAND DIET Continue on lactulose 30 g q.6 hours and rifaximin 550 mg b.i.d. Monitor closely for signs of GI bleeding, obtain occult stool guaiac, monitor closely for melena, hematemesis, hematochezia Await blood culture and stool occult blood results Continue patient on empiric antibiotic prophylaxis with Rocephin Continue patient on IV Protonix 40 mg daily Discussed with to see if we can obtain list of home medications once available All labs will be repeated in the morning ATTESTATION BY PHYSICIAN I have seen and examined the patient. I reviewed the documentation, medical decision making, and treatment plan as noted by the mid-level provider above. I agree with the findings and plan of care. Hernandez Vincent MD, KEERTI K MD Aug 17, 2024 10:56
--- NOTE | 2024-08-17 11:30 | NUR ---
blood glucose 158. no insulin coverage needed at this time.
[2024-08-17 12:00] VITALS: BP 148/67; PULSE 86; RESP 19; TEMP 98
--- NOTE | 2024-08-17 14:47 | DS ---
Discharge Summary Hospital Course Summary: 68-year-old male with underlying history of coronary artery disease, history of alcoholic liver cirrhosis, chronic thrombocytopenia, history of recurrent ascites requiring outpatient serial paracentesis, recent history of tips procedure done in [place], [place] about two weeks ago, type 2 diabetes mellitus who presented to the ER for further evaluation of confusion that started today. Patient was brought in by his co-worker for further evaluation of confusion where he was noted to be very slow to respond to answers and then he was not answering questions appropriately. Family denies any recent history of fall. Patient states that he underwent tips procedure for recurrent ascites in [facility]. He is usually seen by [facility] and was hospitalized for about two days post TIPS. Patient and family denies noticing episodes of melena, hematochezia or hematemesis. Last paracentesis was about two weeks ago while he was hospitalized. Denies significant abdominal distention postprocedure. Patient denies any abdominal pain. states that patient has not been compliant with lactulose at home. He may have missed a dose of lactulose yesterday evening. 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 On presentation to the hospital, patient was noted to be afebrile with T-max of 98.2 F, heart rate of 95, blood pressure of 162/66. Labs on presentation showed WBC count of 4400, hemoglobin of 10.3, platelet count of 895051. CMP remarkable for sodium of 142, potassium 4.5, BUN of 20, creatinine of 1.2, ammonia was noted to be elevated at 140. Patient underwent further evaluation with CT head without contrast which showed no acute intracranial bleed. Chest x-ray showed no significant infiltrates. Patientis admitted for further management of decompensated cirrhosis of the liver with hepatic encephalopathy post tips. He underwent workup with ultrasound to ensure tips patency. The patient was seen next day morning at the bedside. The patient was stable and oriented to person, place, and time. Vital signs were stable. CT abdomen and pelvis findings: cirrhotic morphology of the liver with a moderate amount of ascites. Mesenteric edema. Splenomegaly. Tips stent in place. Fluid filled loops of small bowel, which may represent enteritis. ammonia decreased from 140-46. The patient remains on the following retreatment lactulose 30 g q.6 hour, rifaximin 550 mg b.i.d., ceftriaxone 1 g IV daily. A diagnostic and therapeutic paracentesis is done draining 4L. Patient had undergone EGD and the results are as follows-grade 1 esophageal varices, gastritis -patchy moderate inflammation characterized by erosions and erythema was found in the gastric antrum, which has been biopsied and normal examined duodenum and they recommended the following-await pathology results, resume regular diet, continue present medications, outpatient visit in 1 week. Spoke with Radha , gastroenterology [employer]ATION OFFICER - she suggested that the TIPS has decreased flow velocity through the shunt which might have led to the ascites and suggested TIPS revision by IR. Patient informed that he has an appointment with his GI doctor on 08/18/2024. Patient is hemodynamically stable with temperature 99, pulse 91, respiratory rate 19, blood pressure 145/72, saturating at 100% at room air. Labs show WBC 3.3, hemoglobin increased to 8.1, chemistries show sodium 141, potassium 3.4, creatinine 0.8, BUN 14. Patient would be continued on current medications. Spoke with the IR from [place] , He mentioned about the common side effects post tips surgery and mentioned his plan to follow up with them in 1-2 weeks and arrange a venogram. He wanted us to make sure we does the lactulose correctly on sending home and target for 2-3 bowel movements per day. Patient is discharged with all the recommendations. Art Librarian(s): Gastroenterology Procedure(s): PATIENT: RUMA SAINI MR#: [id number] : 1955 SEX: M AGE: 68 [facility] STATUS: ADM IN REPORT#: [id number] SERVICE 9120 REASON: Choked on food, asymptomatic, rule out aspiration ORDERING PHYSICIAN: JUAN PABLO COLLINS MD PROCEDURE: CXR2VW - CHEST 2VWS CHEST 2VWS REASON: Choked on food, asymptomatic, rule out aspiration COMPARISON: None FINDINGS: Two views of the chest were obtained. Lungs are clear. Heart size is normal. There is no pulmonary vascular congestion. Mediastinum and bony thorax appear unremarkable. There has been a previous median sternotomy. IMPRESSION: 1. No acute process seen in the chest and no interval change. DICTATED BY: TYLER NAIR MD DATE: 08/16/24 0851 ELECTRONICALLY SIGNED BY: TYLER NAIR MD DATE: 08/16/24 0854 PATIENT: RUMA SAINI MR#: [id number] : 1955 SEX: M AGE: 68 LOCATION: 4DH ORDER 1115 STATUS: ADM IN REPORT#: [id number] SERVICE 1114 REASON: SHORTNESS of BREATH ORDERING PHYSICIAN: TYLER NAIR MD PROCEDURE: CXR1VW - CHEST 1VW ADDENDUM REPORT Images show clear lungs. Heart size is normal. There is no vascular congestion. There is been previous median sternotomy. There are no acute findings and no change compared to prior study 08/13/2024. There was an incorrect history of a left chest pigtail catheter, this was placed in a different patient. This patient has no history of catheter placement. DICTATED BY: TYLER NAIR MD DATE: 08/15/24 1451 ELECTRONICALLY SIGNED BY: TYLER NAIR MD DATE: 08/15/24 145 CHEST 1VW REASON: POST LT CHEST PIGTAIL DRAIN PLACEMENT COMPARISON: 08/13/2024 on the postprocedure chest x-ray and chest where a problem with the catheter is available chest, no pneumothorax can be a recent order a nonwas there on the superficial draining cellulitis previous sternotomy and no pneumothorax...: FINDINGS: Single view of the chest was obtained. Lungs are clear. Heart size is normal. There is no pulmonary vascular congestion. Mediastinum and bony thorax appear unremarkable. There is been a previous median sternotomy. There is no pneumothorax. The 8 Maori pigtail catheter is not well seen on this image. IMPRESSION: 1. No pneumothorax following left anterior 8 Maori pigtail catheter placement. DICTATED BY: TYLER NAIR MD DATE: 08/15/24 1244 ELECTRONICALLY SIGNED BY: TYLER NAIR MD DATE: 08/15/24 1449 PATIENT: RUMA SAINI MR#: [id number] : 1955 SEX: M AGE: 68 LOCATION: 4DH ORDER 2300 STATUS: ADM IN REPORT#: [id number] SERVICE 0600 REASON: Diagnostic and therapeutic ORDERING PHYSICIAN: CAT LIPSCOMB MD PROCEDURE: PARA ABD - US ABDOMINAL PARACENTESIS IR US ABDOMINAL PARACENTESIS IR REASON: Diagnostic and therapeutic TECHNIQUE: Paracentesis was performed with ultrasound guidance. The puncture site was selected in the Right lower quadrant and overlying skin prepped and draped in a sterile fashion. 1% Xylocaine infiltration was performed. Catheter was placed in the fluid using trocar technique. 4 L were removed. Fluid sample was submitted for laboratory evaluation. The patient showed no evidence of complication during the procedure. IMPRESSION: 1. Ultrasound-guided paracentesis. DICTATED BY: TYLER NAIR MD DATE: 08/15/241234 ELECTRONICALLY SIGNED BY: TYLER NAIR MD DATE: 08/15/241237 PATIENT: RUMA SAINI MR#: [id number] : 1955 SEX: M AGE: 68 LOCATION: [facility] ORDER 28 STATUS: ADM IN REPORT#: [id number] SERVICE 142 REASON: decompensated cirrhosis, ascites, hx of recent TIPS procedure, confusion ORDERING PHYSICIAN: NATALIIA KELLY MD PROCEDURE: ABD PEL WO - CT ABDOMEN/PELVIS W/O CONTRAST CT ABDOMEN/PELVIS W/O CONTRAST INDICATION: decompensated cirrhosis, ascites, hx of recent TIPS procedure, confusion TECHNIQUE: CT ABDOMEN/PELVIS W/O CONTRAST. Oral contrast was 2 given. Coronal and sagittal reformats were performed. CT was performed with one or more of the following dose reduction techniques: Automated exposure control, adjustment of the mA and/or kV according to the patient's size, or use of the iterative reconstruction technique. Comparison: None. FINDINGS: The noncontrast nature this study limits evaluation of abdominal viscera. No pulmonary consolidation or pleural effusion is seen. Cirrhotic morphology the liver is seen with moderate amount of ascites, mesenteric edema, splenomegaly and TIPS stent in place. No acute findings in the pancreas and adrenal glands. No hydronephrosis. The urinary bladder is partially collapsed. Reproductive organs are grossly within normal limits for patient's age. Prominent fecal material is seen in the colon suggestive of constipation. No bowel obstruction is seen. The appendix was not clearly visualized limiting evaluation. Correlate clinically. Fluid-filled loops of small bowel which may may represent enteritis the proper clinical setting. Atherosclerotic changes of the aorta with calcified plaques. Degenerative changes of the spine are seen. IMPRESSION: 1. Cirrhotic morphology the liver is seen with moderate amount of ascites, mesenteric edema, splenomegaly and TIPS stent in place. 2. Constipation. Fluid-filled loops of small bowel which may may represent enteritis the proper clinical setting.. DICTATED BY: BRENDA JAEGER MD DATE: 08/13/24 1628 ELECTRONICALLY SIGNED BY: BRENDA JAEGER MD DATE: 08/13/24 163 PATIENT: RUMA SAINI MR#: [id number] : 1955 SEX: M AGE: 68 LOCATION: [facility] ORDER 1301 STATUS: ADM IN REPORT#: [id number] SERVICE 1258 REASON: rIGHT UPPER EXTREMITY EDEMA, R/O ANY DVT ORDERING PHYSICIAN: NATALIIA KELLY MD PROCEDURE: VENOUS UNI - US VENOUS DOPPLER UNILATERAL US VENOUS DOPPLER UNILATERAL INDICATION: Swelling. Right UPPER EXTREMITY EDEMA, R/O ANY DVT TECHNIQUE: US VENOUS DOPPLER UNILATERAL Real-time venous Doppler ultrasound was performed using B mode, color flow and spectral analysis. FINDINGS: Right cephalic vein thrombosis is seen. The visualized subclavian, axillary, brachial and basilic veins are within normal limits. IMPRESSION: Right cephalic vein thrombosis DICTATED BY: BRENDA JAEGER MD DATE: 08/13/241850 ELECTRONICALLY SIGNED BY: BRENDA JAEGER MD DATE: 08/13/24 185 PATIENT: RUMA SAINI MR#: [id number] : 1955 SEX: M AGE: 68 LOCATION: [facility] ORDER 1246 STATUS: ADM IN REPORT#: [id number] SERVICE 1242 REASON: CIRRHOSIS, CONFUSION, R/O SIGNIFICANT INFILTRATES ORDERING PHYSICIAN: NATALIIA KELLY MD PROCEDURE: CXR1VW - CHEST 1VW PORTABLE CHEST RADIOGRAPH INDICATION: CIRRHOSIS, CONFUSION, evaluate for SIGNIFICANT INFILTRATES COMPARISON: 07/19/2024 FINDINGS: Median sternotomy wires as well as fixation plates and screws are in appropriate alignment. Heart size is normal. Mild calcific plaque is present along the aortic arch mullen. The pulmonary vascularity and katya appear normal. No abnormal pulmonary parenchymal opacity or consolidation identified. No significant pleural effusion noted. No pneumothorax detected. IMPRESSION: No radiographic evidence for any acute cardiopulmonary process. DICTATED BY: YOLIE PIÑA MD DATE: 08/13/24 1306 ELECTRONICALLY SIGNED BY: YOLIE PIÑA MD DATE: 08/13/24 1310 PATIENT: RUMA SAINI MR#: [id number] : 1955 SEX: M AGE: 68 LOCATION: [facility] ORDER 24 STATUS: ADM IN REPORT#: [id number] SERVICE 1224 REASON: recent TIPS for cirrhosis, assess patency of TIPS ORDERING PHYSICIAN: NATALIIA KELLY MD PROCEDURE: ABDOMEN - US ABDOMINAL COMPLETE ULTRASOUND ABDOMEN COMPLETE INDICATION: TIPS evaluation assess for patency COMPARISON: 03/03/2024 and 07/19/2024. FINDINGS: The liver is coarse in echotexture and nodular in contour; no focal lesion demonstrated. Main portal vein is patent, and normal direction of vascular flow demonstrated. Main portal vein velocity = 47 cm/sec. TIPS proximally = 67 cm/sec, midportion = 126 cm/sec, and distal = 72 cm/sec. The common bile duct caliber measures 5.0 mm. Small amount of gallbladder sludge without associated pericholecystic fluid. No sonographic Berman's sign elicited by the ultrasound circular saw operator. Wall thickness measures 3.0 mm. The spleen is normal in size and echotexture. The spleen measures 14.0 cm. Pancreas is obscured by overlying bowel gas. The right kidney measures 8.8 x 4.7 x 3.6 cm,and is normal in echogenicity, without evidence for hydronephrosis or shadowing stones. The left kidney measures 8.9 x 5.1 x 3.9 cm,and is normal in echogenicity, without evidence for hydronephrosis or shadowing stones. Visible portions of the abdominal aorta are within normal limits. Visible portions of the inferior vena cava are within normal limits. Moderate amount of free fluid demonstrated within all 4 quadrants of the abdomen. IMPRESSION: Limitations as reported. Cirrhotic liver and moderate-volume abdominopelvic ascites. Main portal vein velocity = 47 cm/sec. TIPS proximally = 67 cm/sec, midportion = 126 cm/sec, and distal = 72 cm/sec. Normal shunt velocity = 90-190 cm/sec. Gallbladder sludge without cholelithiasis or cholecystitis. DICTATED BY: YOLIE PIÑA MD DATE: 08/13/24 142 ELECTRONICALLY SIGNED BY: YOLIE PIÑA MD DATE: 08/13/24 1434 PATIENT: RUMA SAINI MR#: [id number] : 1955 SEX: M AGE: 68 LOCATION: ED ORDER 1032 STATUS: [facility] REPORT#: [id number] SERVICE 1030 REASON: altered mental state ORDERING PHYSICIAN: REBECCA PIRES DO PROCEDURE: HEAD WO - CT HEAD/BRAIN W/O CONTRAST CT HEAD WITHOUT CONTRAST INDICATION: Altered mental status TECHNIQUE: Noncontrast axial helical CT images from the vertex through the skull base using 5 mm slice thickness without contrast material. CT was performed with one or more of the following dose reduction techniques: Automated exposure control, adjustment of the mA and/or kV according to patient size, or use of iterative reconstruction technique. COMPARISON: None FINDINGS: The cerebral and cerebellar hemispheres are age-appropriate in appearance. No evidence for abnormal extra-axial fluid collections or masses. The ventricles and sulci are normal in size and configuration. No evidence for intracranial parenchymal, epidural, or subdural hemorrhage, mass effect or midline shift. The villarreal-white matter differentiation is well preserved. No secondary evidence to suggest acute ischemia. The brainstem and cerebellum appear normal. The visualized orbits appear unremarkable. The visible paranasal sinuses and mastoid air cells are clear. The calvarium appears normal. IMPRESSION: No acute intracranial process identified. DICTATED BY: YOLIE PIÑA MD DATE: 08/13/24 1109 ELECTRONICALLY SIGNED BY: YOLIE PIÑA MD DATE: 08/13/24 1115 Assessment/Plan: ASSESSMENT: Grade 3 hepatic encephalopathy, POA Decompensated cirrhosis of the liver with ascites and encephalopathy, POA Recent history of tips, performed two weeks ago in [facility], POA Suspected post tips hepatic encephalopathy, POA Rule out occult infection, POA Rule out active GI bleeding, POA History of recurrent ascites, POA History of hypertension, POA History of multivessel coronary artery disease with prior history of CABG, POA Type 2 diabetes mellitus, POA History of chronic thrombocytopenia, POA Prior history of esophageal varices requiring banding in 2022, POA Acute on Chronic Anemia POA Discharge Instructions: Medications as prescribed Lactulose-take as prescribed to prevent ammonia buildup. Aim for 2-3 soft bowel movements per day New the medications prescribed for cirrhosis and related conditions Low-protein diet recommended avoid excessive red meat Low-sodium rate Small frequent meals Limit fluid intake No alcohol If you develop any rapid weight gain, increasing abdominal swelling or shortness of breath, black tarry stools, vomiting blood, fevers chills, worsening weakness, abdominal pain, confusion, excessive sleepiness, personally changes or difficulty speaking come back to the hospital. Home Medications: Reported Medications Carboxymethylcellulose Sodium (Artificial Tears) 1 % Drops, 1 DROP OP QID for 30 Days, #15 ML 0 Refills 08/14/24 Lipase/Protease/Amylase (Az Edge 36,000 Units Capsule) 36K-114K Capsule., 1 CAP PO TID for 30 Days, #90 CAP 0 Refills 08/14/24 Rifaximin (Xifaxan) 550 Mg Tablet, 1 TAB PO BID for 10 Days, #20 TAB 0 Refills 08/14/24 Eltrombopag Olamine (Promacta) 50 Mg Tablet, 1 TAB PO DAILY for 30 Days, #30 TAB 0 Refills 08/14/24 New Medications: Lactulose (Cephulac/Enulose Soln) 20 Gram/30 Ml Soln 30 GM PO Q6H, #30 ML 30 ml BID , but Every 6 hours if needed Continued Medications: Eltrombopag Olamine (Promacta) 50 Mg Tablet 1 TAB PO DAILY for 30 Days, #30 TAB 0 Refills Lipase/Protease/Amylase (Az Edge 36,000 Units Capsule) 36K-114K Capsule. 1 CAP PO TID for 30 Days, #90 CAP 0 Refills Rifaximin (Xifaxan) 550 Mg Tablet 1 TAB PO BID for 10 Days, #20 TAB 0 Refills Discontinued Medications: Carboxymethylcellulose Sodium (Artificial Tears) 1 % Drops 1 DROP OP QID for 30 Days, #15 ML 0 Refills Time spent arranging discharge: 1-30 minutes ATTESTATION BY PHYSICIAN I have seen and examined the patient. I reviewed the documentation, medical decision making, and treatment plan as noted by the mid-level provider above. I agree with the findings and plan of care. Hernandez Vincent MD, KEERTI K MD Aug 17, 2024 14:47
[2024-08-17] MEDS ORDERED: LACT PO (14:52)
[2024-08-17 16:11] VITALS: BP 133/56; PULSE 74; RESP 19; TEMP 98
--- NOTE | 2024-08-17 17:12 | NUR ---
PATIENT WITH DISCHARGE ORDERS. DISCONTINUED IV ACCESS. DISCUSSED HOME MEDICATION, PLAN OF CARE, FOLLOW UP APPOINTMENTS AND DIET RESTRICTIONS. PATIENT STATED HE ALREADY HAS A APPOINTMENT WITH HIS PCP. GAVE PATIENT A WORK EXCUSE. PATIENT VERBALIZED UNDERSTANDING.
--- NOTE | 2024-08-17 17:15 | NUR ---
PATIENT WAS WHEELED DOWNSTAIRS AND LEFT IN PRIVATE CAR WITH HIS SIGNIFICANT OTHER.
--- NOTE | 2024-08-17 22:06 | PN ---
GASTROENTEROLOGY PROGRESS NOTE Date of Visit: Aug 17, 2024 Time of Visit: 22:06 Events / Notes: [ ] Review of Systems: CONSTITUTIONAL: No malaise or change in sensation of wellbeing. ENMT: No rhinorrhea, otorrhea, sinus pain, ear ache. CARDIOVASCULAR: No angina, palpitations, orthopnea or paroxysmal dyspnea. RESPIRATORY: No SOB. GASTROINTESTINAL: No abdominal pain, nausea, vomiting, diarrhea, hematemesis, melena or change in the patient's habitual bowel movements consistency/number. GENITOURINARY: No dysuria, hematuria or change in bladder continence. MUSCULOSKELETAL: No new muscle pain or decrease in muscular strength. No new joint swelling, redness or tenderness. SKIN: No new rash. Physical Exam: GEN: Awake, alert, oriented in person, time and place, and in no acute distress. HEENT: No sinus tenderness. Tympanic membranes were not examined. No rhinorrhea. Oral pharyngeal mucosa is pink, moist and within normal limits. Neck is supple with no cervical lymphadenopathy, thyromegaly or JVD. CHEST: Inspection, palpation and percussion of the chest were unremarkable. Lung auscultation revealed normal breath sounds bilaterally. CARDIAC: PMI is within normal limits. Heart sounds are regular. Normal S1, S2. No gallop or murmur. ABD: Soft, non-tender and not distended. No peritoneal signs on palpation. No organomegaly. Normal bowel sounds. EXT: No cyanosis or clubbing. No edema. SKIN: Intact. No rashes. JOINTS: No evidence of synovitis or acute arthritis. NEURO: Alert and oriented to name, place and person. Cranial nerve examination is unremarkable. No focal motor deficits. Normal speech. Gait is normal. Strength is normal. Vital Signs (last 8hr) Date Time Temp Pulse Resp B/P (MAP) Pulse Ox O2 Delivery O2 Flow Rate FiO2 08/17/24 16:11 98.1 74 19 133/56 100 Room Air Laboratory: [ ] Laboratory: Test 08/17/24 15:18 08/17/24 04:43 08/16/24 05:31 Range/Units Whole Blood Glucose 137 H 70-110 MG/DL White Blood Count 3.3 L 4.8-10.8 K/uL Red Blood Count 2.65 L 4.50-6.20 MIL/uL Hemoglobin 8.1 L 14.0-18.0 g/dL Hematocrit 23.8 L 42-54 % Mean Corpuscular Volume 89.8 79-99 fL Mean Corpuscular Hemoglobin 30.6 27.0-33.0 pg Mean Corpuscular Hemoglobin Concent 34.0 32.0-36.0 g/dL Red Cell Distribution Width 16.2 H 11.0-15.5 % Platelet Count 73 L 130-400 K/uL Mean Platelet Volume 10.1 7.5-10.5 fL Immature Granulocyte % (Auto) 0.3 0-1 % Neutrophils (%) (Auto) 73.2 40.0-77.0 % Lymphocytes (%) (Auto) 15.5 L 21.0-51.0 % Monocytes (%) (Auto) 5.8 3.0-13.0 % Eosinophils (%) (Auto) 5.2 0.0-8.0 % Basophils (%) (Auto) 0.0 0.0-5.0 % Neutrophils # (Auto) 2.4 1.8-7.7 K/uL Lymphocytes # (Auto) 0.5 L 1.0-4.8 K/uL Monocytes # (Auto) 0.2 0.1-1.0 K/uL Eosinophils # (Auto) 0.17 0.00-0.70 K/uL Basophils # (Auto) 0.00 0.00-0.20 K/uL Absolute Immature Granulocyte (auto 0.01 0-1 K/uL Nucleated Red Blood Cells 0.0 0.0-0.19 % Sodium Level 141 136-145 mmol/L Potassium Level 3.4 L 3.5-5.1 mmol/L Chloride Level 111 101-111 mmol/L Carbon Dioxide Level 23 21-32 mmol/L Blood Urea Nitrogen 14 7-18 mg/dL Creatinine 0.8 0.5-1.3 mg/dL Glomerular Filtration Rate Calc 96 >90 mL/min Random Glucose 115 H 70-105 mg/dL Total Calcium 8.0 L 8.5-10.1 mg/dL Segmented Neutrophils % 74 H 40-70 % Lymphocytes % (Manual) 20 L 22-44 % Monocytes % (Manual) 3 2-9 % Eosinophils % (Manual) 3 1-6 % Differential Comment MANUAL DIFFERENTIAL White Cell Morphology Comment Platelet Morphology Comment DECREASED Red Blood Cell Morphology See comments Current Medications Medications (Trade) Dose Ordered Sig/Dandre Route PRN Reason Start Time Stop Time Status Last Admin Dose Admin Albumin Human 50 ml @ 0 mls/hr Q6H IV 08/13/24 14:30 08/16/24 14:29 DC 08/16/24 09:19 1 MLS/HR Albumin Human 200 ml @ 0 mls/hr AD IV 08/15/24 10:30 08/16/24 10:29 DC Ceftriaxone Sodium (ROCEphine 1G INJ) 1 gm Q12H IVPB 08/13/24 13:00 08/17/24 17:38 DC 08/17/24 12:53 1 GM Dextrose (D50w) 50 ml AD PRN IV HYPOGLYCEMIA PROTOCOL 08/13/24 13:00 08/17/24 17:38 DC Glucagon (Glucagon 1mg Kit) 1 mg AD PRN IM HYPOGLYCEMIA PROTOCOL 08/13/24 13:00 08/17/24 17:38 DC Home Med (Home Medication) (Carboxymethylcellulose Sodium (A... QID OP 08/15/24 17:00 08/17/24 17:38 DC Home Med (Home Medication) (Eltrombopag Olamine (Promac... DAILY PO 08/16/24 09:00 08/17/24 17:38 DC Home Med (Home Medication) (Lipase/ Protease/ Amyl... TID PO 08/15/24 21:00 08/17/24 17:38 DC Insulin Human Regular (humuLIN R 100 UNIT/ML 3ML) INSULIN SLIDING SCAL... ACHS SQ 08/13/24 16:30 08/17/24 17:38 DC Lactulose (Constulose 20gm/ 30ml Udcup) 30 gm Q6H PO 08/13/24 13:00 08/17/24 17:38 DC 08/17/24 12:55 30 GM Pantoprazole Sodium (PROTonix 40MG INJ) 40 mg Q24H IVP 08/13/24 13:30 08/17/24 17:38 DC 08/17/24 12:52 40 MG Rifaximin (Xifaxan) 550 mg Q12H PO 08/13/24 13:00 08/17/24 17:38 DC 08/17/24 12:55 550 MG Sodium Chloride 1,000 ml @ 50 mls/hr Q20H IV 08/13/24 13:00 08/14/24 09:27 DC 08/13/24 13:08 50 MLS/HR Thiamine HCl (Vitamin B-1) 100 mg Q24H IVP 08/13/24 13:00 08/17/24 17:38 DC 08/17/24 12:53 100 MG Diagnostics / Radiology: [COPY/PASTE HERE IF NO REPORTS PLEASE DELETE SECTION] Assessment: Concern for GI bleed Acute blood loss anemia Recurrent ascites despite TIPS Hepatic encephalopathy likely secondary to recent tips Cirrhosis Plan: 1. NPO 2. EGD in AM. I have discussed the risks, benefits, alternatives, and potential complications. Questions were answered and they agree to proceed. 3. Pantoprazole drip 80 mg IV bolus and then 8 mg/hr IV infusion for 72 hours 4. Octreotide 50 mcg IV bolus and then 50 mcg/hr IV infusion for 72 hours 5. Recommend checking Hg every 6 hours and transfuse to goal Hg >7. Please do not overtransfuse 6. Please contact our service if the patient has significant bleeding such as hematemesis and we can proceed sooner with the EGD Thanks you for allowing us to participate in the care of this patient! RAMILA CASH CERTIFIED LOW VISION THERAPIST Aug 17, 2024 22:06
== END 2024-08-17 17:15 | disposition home or self-care (01) | DRG 441 ==
LOC: EDH 10:18 → EDHIP 12:46 → 4DH 08-14 17:21
PROVIDERS: ADMIT Internal Medicine; ATTEND Internal Medicine
PROC: 0W9G3ZZ Drainage of Peritoneal Cavity, Percutaneous Approach (ICD-10-PCS; 2024-08-15)
PROC: 0DB78ZX Excision of Stomach, Pylorus, Via Natural or Artificial Opening Endoscopic, Diagnostic (ICD-10-PCS; principal; 2024-08-16)
DX: K76.82 Hepatic encephalopathy (principal); K29.71 Gastritis, unspecified, with bleeding; D62 Acute posthemorrhagic anemia; I82.611 Acute embolism and thrombosis of superficial veins of right upper extremity; K70.31 Alcoholic cirrhosis of liver with ascites; E11.9 Type 2 diabetes mellitus without complications; E78.5 Hyperlipidemia, unspecified; I10 Essential (primary) hypertension; I25.10 Atherosclerotic heart disease of native coronary artery without angina pectoris; T17.928A Food in respiratory tract, part unspecified causing other injury, initial encounter; D50.9 Iron deficiency anemia, unspecified; K59.00 Constipation, unspecified; W44.F3XA Food entering into or through a natural orifice, initial encounter; Z79.899 Other long term (current) drug therapy; Z91.199 Patient's noncompliance with other medical treatment and regimen due to unspecified reason; Z95.1 Presence of aortocoronary bypass graft; Y92.89 Other specified places as the place of occurrence of the external cause
CPT/HCPCS: 36415; 43239; 49083; 70450; 71045; 71046; 74176; 76700; 80048; 80053; 80076; 80305; 81001; 82140; 82270; 82550; 82948; 83036; 83605; 83735; 84145; 84443; 84484; 85014; 85018; 85025; 85610; 85651; 85730; 86140; 86850; 86900; 86901; 87040; 87071; 87205; 87635; 87804; 89051; 93971; A4606; C1729; G0378; J0696; J2470; J2704; J3411; J7030; P9047; A4215; A4221; A4222; A4223; A4615; A4663; J3490

== ENCOUNTER → 2024-11-09 | Outpatient (CLI) | payer OTHER ==
[~2024-11-09] MED LIST changes: -ALBUMIN HUMAN 25% 200 ML IV ONE; +ASPI-1005 PO; +CEFU500T67 PO; +ELTR50TA PO; +LACT PO; +LIPA1CAP18 PO; +LISI20TA24 PO; +RIFA550T PO
[2024-11-09 12:20] LABS: CREATININE 1.2 mg/dL (0.5-1.3)
== END | disposition home or self-care (01) ==
LOC: LAB 08:17
PROVIDERS: ATTEND Internal Medicine
DX: D69.6 Thrombocytopenia, unspecified (principal); I25.118 Atherosclerotic heart disease of native coronary artery with other forms of angina pectoris
CPT/HCPCS: 36415; 80048; 83880

== ENCOUNTER → 2025-03-01 | Outpatient (CLI) | payer OTHER ==
[2025-03-01 09:58] LABS: IMMATURE GRANULOCYTE ABSOLUTE 0.01 K/uL (0-1); NUCLEATED RED BLOOD CELLS 0.0 % (0.0-0.19); PLATELET COUNT (AUTO) 62 K/uL (130-400); RED BLOOD CELL COUNT(AUTO) 2.47 MIL/uL (4.50-6.20); RED CELL DISTRIBUTION WIDTH 15.3 % (11.0-15.5); WHITE BLOOD COUNT (AUTO) 2.8 K/uL (4.8-10.8)
[2025-03-01 10:09] LABS: INR 1.23 (0.85-1.15)
[2025-03-01 10:27] LABS: ASPARTATE AMINOTRANSFERASE 24.0 U/L (10-37); CREATININE 0.9 mg/dL (0.5-1.3); GLOMERULAR FILTR. RATE CALC 92.0 mL/min (>90); GLUCOSE,RANDOM 104.0 mg/dL (70-105); SODIUM SERUM 141.0 mmol/L (136-145); TOTAL PROTEIN, SERUM 5.5 g/dL (6.0-8.3); UREA NITROGEN, BLOOD 19.0 mg/dL (7-18)
[2025-03-01 11:50] LABS: EOSINOPHILS % (MANUAL) 6 % (1-6); LYMPHOCYTES % (MANUAL) 18 % (22-44); MAN.DIFF COMMENT-IMPRESSION MANUAL DIFFERENTIAL; MONOCYTES % (MANUAL) 1 % (2-9); SEGMENTED NEUTROPHILS % 75 % (40-70)
[2025-03-01 11:51] LABS: PLATELET MORPHOLOGY COMMENT DECREASED; WBC MORPHOLOGY HYPERSEGMENT NEUT 1+
--- NOTE | 2025-03-01 12:00 | NUR ---
U/S GD PARACENTESIS PROCEDURE PERFORMED BY DR ROJAS. PUNCTURE SITE LLQ AND PATIENT TOLERATED PROCEDURE WELL. TOTAL REMOVED 3.4 LITERS OF YELLOW CLOUDY ASCITES FLUID. SPECIMEN SENT TO LAB. END OF PROCEDURE AT 1140. CATHETER REMOVED AND DRESSING APPLIED. NO BLEEDING NOTED. DISCHARGE INSTRUCTIONS GIVEN TO PATIENT AND VERBALIZED UNDERSTANDING. DISCHARGED VIA WHEELCHAIR WITH SPOUSE. AAO X3 WITH NO C/O PAIN.
[2025-03-01 13:45] LABS: ALBUMIN,BODY FLUID < 0.6 g/dL; TOTAL PROTEIN,BODY FLUID < 2.0 g/dL
[2025-03-01 13:52] LABS: COLOR,BODY FLUID YELLOW (LT YELLOW); SPECIMENTYPE,BODY FLUID ASCITES; TOTAL VOLUME,BODY FLUID 3400 mL
[2025-03-01 13:53] LABS: APPEARANCE BODY FLUID CLEAR (CLEAR)
[2025-03-01 13:56] LABS: BODY FLUID RBC 292 /cu. mm.; BODY FLUID WBC 76 /cu. mm.
[2025-03-01 14:58] LABS: BF LYMPHOCYTE 69 %; BF MONOCYTE 7 %; BF NEUTROPHIL 24.0 %; BF TOTAL CELLS COUNTED 100
--- NOTE | 2025-03-01 15:35 | HMCIMG ---
US ABDOMINAL PARACENTESIS IR REASON: ASCITES TECHNIQUE: Paracentesis was performed with ultrasound guidance. The puncture site was selected in the Right lower quadrant and overlying skin prepped and draped in a sterile fashion. 1% Xylocaine infiltration was performed. Catheter was placed in the fluid using trocar technique. 3.4 were removed. Fluid sample was submitted for laboratory evaluation. The patient showed no evidence of complication during the procedure. Patient tolerated procedure well. IMPRESSION: 1. Ultrasound-guided paracentesis.
== END ==
LOC: RAH 09:11
PROVIDERS: ATTEND Internal Medicine Gastroenterology
DX: K70.31 Alcoholic cirrhosis of liver with ascites (principal); I25.10 Atherosclerotic heart disease of native coronary artery without angina pectoris; I10 Essential (primary) hypertension; E11.9 Type 2 diabetes mellitus without complications; K21.9 Gastro-esophageal reflux disease without esophagitis; I85.00 Esophageal varices without bleeding; Z79.82 Long term (current) use of aspirin; Z86.2 Personal history of diseases of the blood and blood-forming organs and certain disorders involving the immune mechanism; Z79.899 Other long term (current) drug therapy; Z98.890 Other specified postprocedural states
CPT/HCPCS: 49083; 84157; 80053; 85025; 89051; 85610; 85730; 87071; 87205; 82042; 36415; 88108; 88305; C1729

== ENCOUNTER → 2025-03-29 | Outpatient (CLI) | payer OTHER ==
--- NOTE | 2025-03-30 08:18 | HMCIMG ---
EXAMINATION: ULTRASOUND OF THE ABDOMEN WITH DUPLEX SCAN. CLINICAL HISTORY: Pain COMPARISON: CT abdomen and pelvis without contrast dated 08/13/2024 and Ultrasound of the abdomen dated 08/13/2024. TECHNIQUE: Real-time grayscale ultrasound images of the abdomen. In addition, color Doppler is medically necessary to perform in order to evaluate vascularity and blood flow. FINDINGS: Liver: Shrunken in caliber, the right hepatic lobe measures 11.0 cm in the craniocaudal dimension. There is coarse echotexture of the hepatic parenchyma and lobulated contour. There is no focal hepatic abnormality or intrahepatic biliary ductal dilatation. The main portal vein is dilated and measures 1.6 cm. Appropriate hepatopetal flow within the hepatic arteries and portal veins, and hepatofugal flow within the hepatic veins. Velocity in the splenic vein is normal. Doppler indices are as follow: Main portal vein: 101 cm/s Right hepatic vein: 27 cm/s Mid hepatic vein: 43 cm/s Left hepatic vein: 52 cm/s Splenic vein: 35 cm/s at pancreatic body level and 55 cm/s at hilum. There is splenorenal shunt and velocity is 50 cm/s. IVC: 86 cm/s Hepatic artery: 103 cm/s and RI 0.76 There is TIPS with velocity of 234 cm/s at proximal, 240 cm/s at mid and 260 cm/s at the distal segment. Gallbladder: Within normal limits with normal wall thickness (0.4 cm). No hyperemia or pericholecystic free fluid. There is a calculus that measures 1.5 cm. Common bile duct is normal in caliber, measuring 0.28 cm. Spleen is bulky in caliber and measures 14.1 cm in craniocaudal dimension. No focal lesions. Pancreas: Normal in caliber and echotexture. No calcification or dilated pancreatic duct. The kidneys are normal in caliber, the right kidney measures 10.7 x 4.5 x 4.8 cm and the left kidney measures 10.2 x 4.7 x 5.4 cm in its craniocaudal, AP and transverse dimensions respectively. There is normal renal cortical thickness and cortical echogenicity. There is no renal calculus or hydronephrosis bilaterally. There is a simple cortical cyst that measures 1.2 x 1.5 cm in the right renal upper pole. Visualized aspects of the abdominal aorta and inferior vena cava are unremarkable. There is moderate free fluid in the peritoneal cavity. IMPRESSION: Chronic liver disease. Cholelithiasis. No cholecystitis. Mild splenomegaly. Right renal simple cortical cyst. Moderate ascites. Dilated main portal vein with hepatopetal flow and increased velocity. The velocity in the TIPS is more than 200 cm/s and the change from previous base line velocity is more than 50%, reflecting stenosis. /[place]
== END | disposition home or self-care (01) ==
LOC: RAH 09:59
PROVIDERS: ATTEND Internal Medicine Gastroenterology
DX: K80.20 Calculus of gallbladder without cholecystitis without obstruction (principal); K76.9 Liver disease, unspecified; N28.1 Cyst of kidney, acquired; R16.1 Splenomegaly, not elsewhere classified; R18.8 Other ascites
CPT/HCPCS: 76700; 93975

== ENCOUNTER 2025-04-04 07:38 | Day surgery (SDC) | payer OTHER ==
[2025-04-03 10:22] LABS: IMMATURE GRANULOCYTE ABSOLUTE 0.01 K/uL (0-1); NUCLEATED RED BLOOD CELLS 0.0 % (0.0-0.19); PLATELET COUNT (AUTO) 66 K/uL (130-400); RED BLOOD CELL COUNT(AUTO) 2.40 MIL/uL (4.50-6.20); RED CELL DISTRIBUTION WIDTH 15.8 % (11.0-15.5); WHITE BLOOD COUNT (AUTO) 2.5 K/uL (4.8-10.8)
[2025-04-03 10:28] VITALS: BP 136/56; PULSE 66; RESP 18; TEMP 97.7
[2025-04-03 10:29] LABS: CREATININE 1.0 mg/dL (0.5-1.3); GLOMERULAR FILTR. RATE CALC 81.0 mL/min (>90); GLUCOSE,RANDOM 104.0 mg/dL (70-105); SODIUM SERUM 141.0 mmol/L (136-145); UREA NITROGEN, BLOOD 23.0 mg/dL (7-18)
[2025-04-03 10:33] LABS: INR 1.22 (0.85-1.15)
[2025-04-03 13:05] LABS: BASOPHILS % (MANUAL) 1 % (0-2); EOSINOPHILS % (MANUAL) 15 % (1-6); LYMPHOCYTES % (MANUAL) 19 % (22-44); MAN.DIFF COMMENT-IMPRESSION MANUAL DIFFERENTIAL; MONOCYTES % (MANUAL) 2 % (2-9); REACTIVE LYMPHOCYTES 1 % (0-0); SEGMENTED NEUTROPHILS % 62 % (40-70)
[2025-04-03 13:06] LABS: PLATELET MORPHOLOGY COMMENT DECREASED; WBC MORPHOLOGY CONSISTENT W/DIFF
--- NOTE | 2025-04-03 16:46 | NUR ---
REPORT REPORTED CBC/COAGS TO DR ROJAS/SUN SHELTON RN FROM IR. OK TO PROCEED
[2025-04-04] VITALS (12 sets, daily range): BP systolic 115–150; BP diastolic 43–58; PULSE 60–67; RESP 13–15; TEMP 97.4–97.7
[~2025-04-04] VITALS: Ht 167.6 cm; Wt 90.3 kg
[~2025-04-04 07:38] MED LIST changes: -CEFU500T67 PO; +EMPA10TA PO; +FURO40TA5 PO; -LACT PO; +LIFI1DRO5 OP; -LIPA1CAP18 PO; -LISI20TA24 PO; -RIFA550T PO; +SACU1TAB PO; +bydureon SQ; +lactulose PO
--- NOTE | 2025-04-04 08:18 | NUR ---
JUANPABLO HUFFMAN FROM IR CAME TO GET PT FOR PARACENTESIS NO VS TAKEN PRIOR
[2025-04-04] MEDS ORDERED: ALBUMIN HUMAN 25% 0 ML IV ONE (08:49)
--- NOTE | 2025-04-04 09:15 | NUR ---
U/S GD PARACENTESIS PROCEDURE PERFORMED BY DR Domo ROJAS. PUNCTURE SITE RLQ AND PATIENT TOLERATED PROCEDURE WELL. TOTAL REMOVED 4 LITERS OF CLOUDY YELLOW FLUID. END OF PROCEDURE AT 0900. CATHETER REMOVED AND DRESSING APPLIED. NO BLEEDING NOTED. REPORT GIVEN TO MARIO PALOMARES AND PATIENT TRANSPORTED TO DAY PATIENT ROOM 8 VIA BED AT 0915. AAO X3 WITH NO C/O PAIN.
--- NOTE | 2025-04-04 09:25 | NUR ---
PT ARRIVED BACK TO DAY # 8 VSS NAD PUNCTURE SITE ASYMPTOMATIC RUQ
--- NOTE | 2025-04-04 14:45 | NUR ---
PT ARRIVED TO DAY # 8 VSS NAD RIGHT JUGULAR ACCESS ASYMPTOMATIC.
--- NOTE | 2025-04-04 15:44 | NUR ---
RIGHT JUGULAR ACCESS SITE ASYMPTOMATIC
--- NOTE | 2025-04-04 16:50 | NUR ---
BOTH PT AND GIVEN VERBAL AND WRITTEN DISCHARGE INSTRUCTIONS. IV REMOVED SITE ASYMPTOMATIC. PT TAKEN OUT VIA WHEELCHAIR SPOUSE DRIVING. RIGHT JUGULAR SITE ASYMPTOMATIC
--- NOTE | 2025-04-04 17:46 | CCATH ---
STUDY: Fluoroscopy-guided TIPS revision with deployment of Dalzell Viatorr stent 8 cm length with 6 cm covered and 2 cm uncovered. Followed by angioplasty of the TIP shunt using 10 mm x 60 mm balloon EV3 balloon. IV conscious sedation was given with 3 mg of Versed and 75 mcg of fentanyl, which was titrated over an hour. Portal pressure measured pre and post TIPS revision. Portal pressure measurement pre and post TIPS revision. HISTORY: This is a 69-year-old male with right internal jugular vein. Neck region was prepped and draped. Under ultrasound, the right internal jugular vein was accessed. An angiographic wire and a catheter was then introduced followed by placement of a 10-[place] sheath. The existing TIP shunt was accessed with angiographic wire and catheter. The catheter was then placed into the main portal vein. Portography was performed, which demonstrated stenosis of the TIP shunt, both the hepatic portion and portal portion. Portal pressure was measured, which was 25. Over an angiographic wire, 8 cm length, 8 cm covered, and 2 cm uncovered Dalzell Viatorr stent was deployed. This was followed by angioplasty using 10 mm x 6 cm balloon catheter. Both the proximal and distal portion of the stent was dilated. There is stenosis when dilatation was performed. The proximal portion is at the level of the confluence of the hepatic vein and IVC. Post angioplasty, portography demonstrates the portal TIP shunt to be patent and flow is towards the heart. Previously seen stenosis is resolved. The portal pressure was then measured, which is 16 mm, which is within the limits of normal. IMPRESSION: * TIPS revision with deployment of a Dalzell Viatorr stent 8 cm length followed by angioplasty. * Portal pressure pre-TIPS revision was 25 mm and post-revision is 16 mm. The patient tolerated the procedure well. TID: [id number] RECEIPT: [id number]
== END 2025-04-04 17:10 | disposition home or self-care (01) ==
LOC: DAH 07:38
PROVIDERS: ATTEND Internal Medicine Gastroenterology
DX: T82.858A Stenosis of other vascular prosthetic devices, implants and grafts, initial encounter (principal); K70.31 Alcoholic cirrhosis of liver with ascites; I10 Essential (primary) hypertension; I25.10 Atherosclerotic heart disease of native coronary artery without angina pectoris; E11.9 Type 2 diabetes mellitus without complications; Z79.82 Long term (current) use of aspirin; K21.9 Gastro-esophageal reflux disease without esophagitis; K59.04 Chronic idiopathic constipation; Z98.890 Other specified postprocedural states; Z79.01 Long term (current) use of anticoagulants; Z79.899 Other long term (current) drug therapy
CPT/HCPCS: 80048; 85025; 85610; 85730; 36415 ×2; 37183; 99156; 99157 ×4; 82140; 82948; A4223 ×3; C1874; C1769 ×2; C1758; C1894; C1887; C1725; A4215; A4222; A4221; A4663; A4216; A4606; 49083; C1729; J1644; J2250; J3010; J3490; P9046; Q9967

== ENCOUNTER → 2025-04-05 | Outpatient (CLI) | payer OTHER ==
--- NOTE | 2025-04-05 10:45 | HMCIMG ---
Liver ULTRASOUND INDICATION: Patient is status post history revision on 04/04/2025. COMPARISON: Prior ultrasound from 04/04/2025 and 03/29/2025 are available. TECHNIQUE: Multiplanar sonographic images of the liver were obtained earlier in real-time using grayscale and color Doppler technique, and subsequently made available for review. FINDINGS/IMPRESSION: Study liver sonogram demonstrate that the kidneys is patent the flow is hepatopetal velocity is 243 cm/s. There is some residual subhepatic ascites seen. IMPRESSION: The TIPS shunt is patent and flow is hepatopetal and the velocity is 2 43 cm/s Small subhepatic ascites I would recommend patient return in one month for evaluation of the TIPS shunt and then every 3 months after the one month
== END | disposition home or self-care (01) ==
LOC: RAH 11:30
PROVIDERS: ATTEND Radiology Diagnostic Radiology
DX: R18.8 Other ascites (principal)
CPT/HCPCS: 76705

== ENCOUNTER 2025-05-05 16:52 | Inpatient (IN) | payer OTHER ==
[~2025-05-05] VITALS: Ht 162.6 cm; Wt 70.8 kg
--- NOTE | 2025-05-05 17:09 | ERN ---
ED Note History of Present Illness Stated Complaint: AMS Chief Complaint: Altered Mental Status Time Seen by MD: 17:00 Dictation: IS A 69-YEAR-OLD MALE WITH A HISTORY OF CIRRHOSIS HERE WITH HIS . IS COMPLAINING HE HAS HAD ALTERED MENTAL STATUS WITH INCREASE LETHARGY OVER THE LAST 1-2 DAYS. SHE STATES HE DOES HAVE CIRRHOSIS WITH ASCITES AND HYPERAMMONEMIA STATES HE HAS BEEN TAKING HIS LACTULOSE DAILY DIRECTED. NO ACUTE STROKE-LIKE SYMPTOMS OTHER THAN LETHARGY. Allergies: Coded Allergies: No Known Allergies (Unverified Allergy, Unknown, 08/13/24) No Known Drug Allergies (Unverified Allergy, Unknown, 08/01/21) Home Meds Reported Medications [bydureon] No Conflict Check, SQ weekly 04/03/25 Lifitegrast (Xiidra) 5 % Droperette, 1 EACH OP TID, DROP 04/03/25 Sacubitril/Valsartan (Entresto 24 mg-26 mg Tablet) 24 Mg-26 Mg Tablet, 1 EACH PO BID, TAB 04/03/25 Furosemide (Furosemide) 40 Mg Tablet, 40 MG PO AM, TAB 04/03/25 Empagliflozin (Jardiance) 10 Mg Tablet, 10 MG PO AM, TAB 04/03/25 [lactulose] No Conflict Check, 20 GM PO BID PRN for CONSTIPATION 04/03/25 Aspirin (ASPIRIN 81MG CHEW TAB) 81 Mg Tab.chew, 81 MG PO DAILY, TAB.CHEW 08/23/24 Eltrombopag Olamine (Promacta) 50 Mg Tablet, 1 TAB PO DAILY for 30 Days, #30 TAB 0 Refills 08/14/24 Past Medical History Past Medical History: CAD, Diabetes-Type II, High Cholesterol, Heart Disease, Hypertension, Liver Disease Additional Past Medical Hx: CIRRHOSIS ,THROMBOCYTOPENIA,ESOPHAGEAL VARICES WITH BANDING Surgical History: Appendectomy, CABG Surgical History Other: TIPS PROCEDURE Family History: Negative RN Note Reviewed/Agreed w/PFSH: Yes Review of System Dictation CONSTITUTIONAL: NEGATIVE EXCEPT FOR HPI HEAD/FACE: NEGATIVE EXCEPT FOR HPI EENT: NEGATIVE EXCEPT FOR HPI RESPIRATORY: NEGATIVE EXCEPT FOR HPI GASTROINTESTINAL/ABDOMINAL: NEGATIVE EXCEPT FOR HPI GENITOURINARY: NEGATIVE EXCEPT FOR HPI MUSCULOSKELETAL: NEGATIVE EXCEPT FOR HPI INTEGUMENTARY: NEGATIVE EXCEPT FOR HPI NEUROLOGICAL/PSYCH: NEGATIVE EXCEPT FOR HPI WEAKNESS WITH LETHARGY HEMATOLOGIC/LYMPHATIC: NEGATIVE EXCEPT FOR HPI ALL SYSTEMS NEGATIVE, EXCEPT NOTED ABOVE. 13 POINT REVIEW OF SYSTEMS ASSESSED AND ALL NEGATIVE EXCEPT FOR ABOVE. Initial Vital Sign VS Vital Signs Date Time Temp Pulse Resp B/P (MAP) Pulse Ox O2 Delivery O2 Flow Rate FiO2 05/05/25 16:54 98.1 61 20 141/51 99 Room Air 05/05/25 18:11 0 21 Physical Exam Dictation VITAL SIGNS REVIEWED GENERAL APPEARANCE: ALERT, ORIENTED X 3, BLUNTED MENTATION NOTED. SHE IS CLEAR HEAD AND FACE: 9 RIGHT FRONTAL HEMATOMA NO BAIG OR RACCOON EYES: PERRL, PINK CONJUNCTIVAS, EYELID NO TRAUMA, ANTERIOR CHAMBER WITH ARCUS SENILIS. EARS: PINNAS INTACT AND NO SIGNS OF TRAUMA OR ERYTHEMA EAR CANALS CLEAR AND NO DISCHARGE TM NO ERYTHEMA SIGN NO HEMOTYMPANUM OROPHARYNX: MOUTH NORMAL, TONGUE PINK, PHARYNX CLEAR,NO ERYTHEMA, TONSILS NO EXUDATES, NO ABSCESSES NOTED, MUCOUS MEMBRANE MOIST NECK: SUPPLE, NON-TENDER, NO THYROMEGALY, NO MASSES, NO JVD, NO BRUITS BREAST:DEFERRED CHEST:NO TENDERNESS, NO CREPITUS, NO PARADOXICAL MOVEMENT, NO RETRACTIONS LUNGS:CLEAR, WELL-VENTILATED, SYMMETRIC, NO RALES, NO WHEEZING, NO RHONCHI, NO STRIDOR, GOOD BREATH SOUNDS BILATERALLY HEART: REGULAR RATE, REGULAR RHYTHM, NO MURMUR, NO GALLOPS VASCULAR: NO PERIPHERAL EDEMA, ABDOMEN: SOFT, POSITIVE BOWEL SOUNDS, NONDISTENDED, NO GUARDING, NONTENDER, NO REBOUND, NO MASSES NO HEPATOMEGALY, NO SPLENOMEGALY, NO JACOB'S SIGN, NO HERNIAS. RECTAL: DEFERRED GENITAL: DEFERRED NEUROLOGICAL: NORMAL SPEECH, MOTOR FUNCTION INTACT, SENSORY FUNCTION INTACT NIH IS 0 EXCEPT FOR SPEECH, GB W MUSCULOSKELETAL: NECK NONTENDER, FULL RANGE OF MOTION, BACK NONTENDER, FULL RANGE OF MOTION, EXTREMITIES: NONTENDER, FULL RANGE OF MOTION SKIN: COLOR PINK, DRY, NO TURGOR, NO RASH, NO LACERATIONS, NO ABRASIONS, NO CONTUSIONS. LYMPHATIC: DEFERRED Results (Laboratory/Radiology) Laboratory/Radiology Laboratory Tests Test 05/05/25 17:22 05/05/25 19:00 White Blood Count 3.1 K/uL (4.8-10.8) L Red Blood Count 3.51 MIL/uL (4.50-6.20) L Hemoglobin 12.1 g/dL (14.0-18.0) L Hematocrit 34.5 % (42-54) L Mean Corpuscular Volume 98.3 fL (79-99) Mean Corpuscular Hemoglobin 34.5 pg (27.0-33.0) H Mean Corpuscular Hemoglobin Concent 35.1 g/dL (32.0-36.0) Red Cell Distribution Width 15.7 % (11.0-15.5) H Platelet Count 56 K/uL (130-400) L Mean Platelet Volume 9.9 fL (7.5-10.5) Immature Granulocyte % (Auto) 0.3 % (0-1) Neutrophils (%) (Auto) 63.0 % (40.0-77.0) Lymphocytes (%) (Auto) 26.2 % (21.0-51.0) Monocytes (%) (Auto) 7.0 % (3.0-13.0) Eosinophils (%) (Auto) 3.2 % (0.0-8.0) Basophils (%) (Auto) 0.3 % (0.0-5.0) Neutrophils # (Auto) 2.0 K/uL (1.8-7.7) Lymphocytes # (Auto) 0.8 K/uL (1.0-4.8) L Monocytes # (Auto) 0.2 K/uL (0.1-1.0) Eosinophils # (Auto) 0.10 K/uL (0.00-0.70) Basophils # (Auto) 0.01 K/uL (0.00-0.20) Absolute Immature Granulocyte (auto 0.01 K/uL (0-1) Nucleated Red Blood Cells 0.0 % (0.0-0.19) Platelet Morphology Comment See comments Sodium Level 143 mmol/L (136-145) Potassium Level 3.7 mmol/L (3.5-5.1) Chloride Level 109 mmol/L (101-111) Carbon Dioxide Level 25 mmol/L (21-32) Blood Urea Nitrogen 22 mg/dL (7-18) H Creatinine 0.9 mg/dL (0.5-1.3) Glomerular Filtration Rate Calc 92 mL/min (>90) Random Glucose 175 mg/dL (70-105) H Total Calcium 8.5 mg/dL (8.5-10.1) Total Bilirubin 3.3 mg/dL (0.2-1.0) H Aspartate Amino Transf (AST/SGOT) 23 U/L (10-37) Alanine Aminotransferase (ALT/SGPT) 12 U/L (12-78) Alkaline Phosphatase 107 U/L (50-136) Ammonia 75 umol/L (11-32) H Troponin I High Sensitivity 12 ng/L (4-75) Total Protein 6.1 g/dL (6.0-8.3) Albumin 2.3 g/dL (3.5-5.0) L Urine Color YELLOW (YELLOW) Urine Appearance CLEAR (CLEAR) Urine pH 5.5 (5.0-8.0) Urine Specific [place] 1.025 (1.001-1.031) Urine Protein NEGATIVE mg/dL (NEGATIVE) Urine Glucose (UA) >=1000 mg/dL (NEGATIVE) H Urine Ketones NEGATIVE mg/dL (NEGATIVE) Urine Occult Blood MODERATE (NEGATIVE) H Urine Nitrate NEGATIVE (NEGATIVE) Urine Bilirubin NEGATIVE mg/dL (NEGATIVE) Urine Urobilinogen 6 mg/dL (0.2-1.0) H Urine Leukocyte Esterase NEGATIVE [place]/uL Urine RBC 6-10 /HPF (0-1) H Urine WBC 2-5 /HPF (0-1) H Urine Squamous Epithelial Cells RARE /HPF (0-2) Urine Bacteria None /HPF (None Seen) Urine Hyaline Casts 2-5 /LPF (0-1 /LPF) H FINDINGS: BRAIN: Periventricular hypodensities are present, concerning for chronic microangiopathic ischemic changes. Gliosis with encephalomalacia is identified in the left frontal lobe. Diffuse cerebral atrophy is evident, manifested by prominence of the cortical sulci, basal cisterns, and bilateral Sylvian fissures. No evidence of acute intracranial hemorrhage, mass lesion, midline shift, or extra-axial fluid collection. No CT evidence of acute territorial infarct. VENTRICLES: No hydrocephalus. ORBITS: The orbits are unremarkable. SINUSES AND MASTOIDS: The paranasal sinuses and mastoid air cells are clear. BONES: No calvarial fracture. SOFT TISSUES: Right frontal scalp hematoma measuring 0.3 cm. IMPRESSION: Right frontal scalp hematoma measuring 0.3 cm. Chronic microangiopathic ischemic changes. Gliosis and encephalomalacia in the left frontal lobe. Diffuse cerebral atrophy. No acute intracranial hemorrhage or territorial infarct. /[place] Labs Reviewed?: Yes EKG: (+) NSR EKG Comment: SINUS BRADYCARDIA/HEART RATE 57/AXIS NORMAL/NO ECTOPY ED Course ED Course Orders Procedure Category Date Status Time Ammonia LAB 05/05/25 Complete 17:06 Cbc With Differential LAB 05/05/25 Complete 17:06 Comprehensive LAB 05/05/25 Complete Metabolic Panel 17:06 Troponin I High LAB 05/05/25 Complete Sensitivity 17:06 Urinalysis Profile LAB 05/05/25 Complete 17:06 12 Lead Ekg Tracing- EKG 05/05/25 Complete Technical 17:06 Lactulose 20 Gm/30 Ml PHA 05/05/25 In Process Udcup (Constulose 18:30 Ct Head/Brain W/O CT 05/05/25 Resulted Contrast 18:08 Edm Admit Bridge Order ADM 05/05/25 Transmitted 20:50 Current Medications Medications (Trade) Dose Ordered Sig/Dandre Route PRN Reason Start Time Stop Time Status Last Admin Dose Admin Lactulose (Constulose 20gm/ 30ml Udcup) 20 gm ONCE PO 05/05/25 18:30 05/05/25 22:30 05/05/25 18:52 Vital Signs Date Time Temp Pulse Resp B/P (MAP) Pulse Ox O2 Delivery O2 Flow Rate FiO2 05/05/25 18:11 98.1 79 20 145/86 99 Room Air* 0 21 05/05/25 16:54 98.1 61 20 141/51 99 Room Air 2019/SPOKE WITH PATIENT IN HIS AT LENGTH AND THEY AGREED TO PATIENT BE ADMITTED TO THE HOSPITAL FOR HEPATIC ENCEPHALOPATHY DEHYDRATION THEY ARE AWARE THAT CT X-RAY EVERYTHING IS BACK AND ALL WAS [id number]/ 2050/SPOKE WITH [facility] AND REVIEWED CT LABS EKG AND INTERVENTIONS FOR HYPERAMMONEMIA SHE AGREED TO ADMIT PATIENT. Medical Decision Making MDM MDM: DIFFERENTIAL DIAGNOSIS: ALTERED MENTAL STATUS/SUBDURAL HEMATOMA/BLEED/SKULL FRACTURE/HYPERAMMONEMIA/ELECTROLYTE IMBALANCE/DEHYDRATION/ACS/HYPERAMMONEMIA RATIONALE: TESTS CONSIDERED AND ORDERED SECONDARY TO SHARED DECISION MAKING INCLUDE: LABS, ECG AND RADIOLOGY PREVIOUS OUTSIDE RECORDS REVIEWED: OLD ER VISITS. RISK OF COMPLICATION AND/OR MORBIDITY OR MORTALITY OF PATIENT MANAGEMENT: NONE MEDICATIONS-PER MEDICATION RECONCILIATION NEED FOR HOSPITALIZATION: PATIENT DOES MEET CRITERIA FOR HOSPITALIZATION. PATIENT WILL NEED TO BE ADMITTED FOR HEPATIC ENCEPHALOPATHY DEHYDRATION HYP OALBUMINEMIA NEED FOR EMERGENCY MAJOR/MINOR SURGERY: NO THERE ARE NO SOCIAL CONCERNS WITH THIS PATIENT. PRESCRIPTION DRUG MANAGEMENT PRESCRIPTIONS WILL INCLUDE SYMPTOMATIC CARE PATIENT'S PRIOR EXTERNAL MEDICAL RECORDS FROM OTHER ER VISITS WERE REVIEWED BY ME INDICATED. PRIOR TESTING AND RESULTS FROM PREVIOUS VISITS WERE REVIEWED. PRIOR TESTS WERE TAKEN INTO ACCOUNT WITH MEDICAL DECISION MAKING AND RESOURCE UTILIZATION, INDEPENDENT HISTORIAN/HISTORIANS WERE USED TO OBTAIN COMPLETE MEDICAL HISTORY. I INDEPENDENTLY INTERPRETED THE TEST THAT WERE PERFORMED, RESULTS WERE REVIEWED BY ME AND CONSIDERED FINDINGS ON RADIOLOGY IF ORDERED. MEDICAL MANAGEMENT AND EXAMINATION INTERPRETATION DISCUSSIONS WERE HAD BY ME WITH OTHER QUALIFIED HEALTHCARE PROFESSIONALS INDICATED FOR THE PATIENT'S CARE. DX & DISP Disposition: Inpatient Decision to Admit Time: 20:24 Departure Impression: Primary Impression: Hepatic encephalopathy Additional Impressions: Thrombocytopenia, Leukopenia, Diabetes mellitus with hyperglycemia, Cirrhosis of liver, Chronic anemia Condition: Stable Referrals: MILY BENDER M.D. 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
[2025-05-05 17:29] LABS: IMMATURE GRANULOCYTE ABSOLUTE 0.01 K/uL (0-1); NUCLEATED RED BLOOD CELLS 0.0 % (0.0-0.19); PLATELET COUNT (AUTO) 56 K/uL (130-400); RED BLOOD CELL COUNT(AUTO) 3.51 MIL/uL (4.50-6.20); RED CELL DISTRIBUTION WIDTH 15.7 % (11.0-15.5); WHITE BLOOD COUNT (AUTO) 3.1 K/uL (4.8-10.8)
[2025-05-05 17:43] LABS: CREATININE 0.9 mg/dL (0.5-1.3); GLOMERULAR FILTR. RATE CALC 92.0 mL/min (>90); GLUCOSE,RANDOM 175.0 mg/dL (70-105); SODIUM SERUM 143.0 mmol/L (136-145); UREA NITROGEN, BLOOD 22.0 mg/dL (7-18)
[2025-05-05 17:52] LABS: ASPARTATE AMINOTRANSFERASE 23.0 U/L (10-37); TOTAL PROTEIN, SERUM 6.1 g/dL (6.0-8.3)
--- NOTE | 2025-05-05 18:37 | NUR ---
PT LEFT TO CT AT THIS TIME
[2025-05-05] MEDS: LACTULOSE 20 GM/30 ML UDCUP PO SCH (18:52)
--- NOTE | 2025-05-05 18:53 | EKG ---
[facility] Test Date: 2025-05-05 Test Time: 17:32:07 Pat Name: RUMA SAINI Department: ED Room: 306 Gender: M Translator/Interpreter: [id number] : 1955 Requested By: BINDU GUTIERREZ Order Number: [id number] Reading MD: Yevgeniy Orozco Measurements Intervals [place] Rate: 57 P: 33 AK: 173 QRS: 7 QRSD: 83 T: 14 QT: 479 QTc: 466 Interpretive Statements Sinus rhythm Low voltage, extremity leads Compared to ECG 07/19/2024 10:03:12 Sinus arrhythmia no longer present Electronically Signed On 05-06-2025 17:45:47 CDT by Yevgeniy Orozco Please click the below link to view image of tracing.
[2025-05-05 19:23] LABS: ADD UA MICROSCOPIC YES; APPEARANCE,URINE CLEAR (CLEAR); LEUKOCYTE ESTERASE ,URINE NEGATIVE Leu/uL (NEGATIVE); NITRATE,URINE NEGATIVE (NEGATIVE)
[2025-05-05 19:25] LABS: GLUCOSE, URINE (UA) >=1000 mg/dL (NEGATIVE); OCCULT BLOOD,URINE MODERATE (NEGATIVE)
[2025-05-05 19:29] LABS: SQUAMOUS EPITHELIAL CELL,UR RARE /HPF (0-2)
--- NOTE | 2025-05-05 19:29 | NUR ---
PT CARE ASSUMED AT THIS TIME
--- NOTE | 2025-05-05 20:17 | HMCIMG ---
EXAM: CT Head Without IV contrast. CLINICAL HISTORY: Patient presents with altered mental status following a fall yesterday and head injury. TECHNIQUE: Axial computed tomography images of the head/brain without intravenous contrast. COMPARISON: CT head dated August 13, 2024. FINDINGS: BRAIN: Periventricular hypodensities are present, concerning for chronic microangiopathic ischemic changes. Gliosis with encephalomalacia is identified in the left frontal lobe. Diffuse cerebral atrophy is evident, manifested by prominence of the cortical sulci, basal cisterns, and bilateral Sylvian fissures. No evidence of acute intracranial hemorrhage, mass lesion, midline shift, or extra-axial fluid collection. No CT evidence of acute territorial infarct. VENTRICLES: No hydrocephalus. ORBITS: The orbits are unremarkable. SINUSES AND MASTOIDS: The paranasal sinuses and mastoid air cells are clear. BONES: No calvarial fracture. SOFT TISSUES: Right frontal scalp hematoma measuring 0.3 cm. IMPRESSION: Right frontal scalp hematoma measuring 0.3 cm. Chronic microangiopathic ischemic changes. Gliosis and encephalomalacia in the left frontal lobe. Diffuse cerebral atrophy. No acute intracranial hemorrhage or territorial infarct. /[place]
--- NOTE | 2025-05-05 21:37 | NUR ---
Angelina ariza in [facility] - 05/05/25 at 2137 by RALPH MIR CONNER NP AT BEDSIDE
--- NOTE | 2025-05-05 21:37 | NUR ---
DON DON MANAGER ONCOLOGY AT BEDSIDE
--- NOTE | 2025-05-05 22:11 | HP ---
[facility] HISTORY AND PHYSICAL Date of Service: May 05, 2025 Time of Service: 21:52 PCP: Kelsey Curtis HISTORY OF PRESENT ILLNESS: This is a 69-year-old male with past medical history of Hypertension, hyperlipidemia, chronic thrombocytopenia, diabetes type 2, coronary artery disease with CABG x3, esophageal varices requiring banding 2022 and alcoholic liver cirrhosis with recurrent ascites presents to the ED for complaints of altered mental status with increased lethargy over the past 2 days. Marely Phillips was at bedside during my evaluation who states patient has been taking lactulos 3 x daily and patient has been having multiple bouts of BM per day and when home health nurse visited the patient told the nurse about it and was instructed to just take the lactulose as needed so patient had stopped taking for the past 4 days as per and patient became more confused and becoming more weak she said.As per ,around 0130 am patient fell and landed on his left side sustaining a bruise around his left temporal area and sustained a scratch on his left face .As per patient started taking his Lactulose again today and he started having bowel movements .As per patient had a paracentesis done 3 weeks ago and 4L of fluid was removed. Seen and examined patient in the ED awake,alert and coherent with confusion and forgetfulness.Patient denies chest pain,palpitation,cough,abdominal pain ,nausea,vomiting ,bloody emesis and bloody stool. Latest vital signs temperature 98.1, heart rate 79 blood pressure 145/86 and saturation 99% on room air. Labs: WBC 3.1, neutrophils 63, hemoglobin 12, hematocrit 34, platelet count 56. BUN 22, creatinine 0.9, GFR 92 glucose 175, total bili 3.3, ammonia 75, troponin 12 albumin 2.3. Urinalysis significant for glucose above 1000, moderate urine occult blood, urine uro bili Inogen six, urine RBC 6-10, urine WBC 2-5 and hyaline casts 2-5. CT head without contrast result revealed right frontal scalp hematoma measuring 0.3 cm. Chronic microangiopathic ischemic changes. Gliosis and encephalomalacia in the left frontal lobe. Diffuse cerebral atrophy. No acute intracranial hemorrhage or territorial infarct. While in the ER patient received lactulose. We will admit patient for further medical management. REVIEW OF SYSTEMS CONSTITUTIONAL: Denies fevers, chills, or night sweats. No unintentional weight loss reported. NEUROLOGICAL: Complained of Increased confusion and forgetfulness Denies headache, amaurosis fugax, sensory deficit, vertigo/spinning sensation, gait abnormalities, or tremors. ENT: No hearing loss, otalgia, otorrhea, rhinitis, rhinorrhea, hoarseness, or sore throat. CARDIOVASCULAR: Denies any exertional angina, dyspnea on exertion, orthopnea, paroxysmal nocturnal dyspnea, palpitations, life-threatening arrhythmias, cl audication. PULMONARY: Denies any shortness of breath, cough, phlegm/sputum, hemoptysis, pleuritic chest pain. SLEEP: Denies morning headaches, daytime somnolence or napping. Denies difficulty falling asleep, staying asleep, waking from sleep. Denies knowledge of snoring. GASTROINTESTINAL: Denies any type of dysphagia to either liquids or solids. Denies nausea, vomiting, pyrosis, early satiety, abdominal pain, diarrhea, const ipation, or changes in stool consistency or caliber. Denies coffee-ground emesis, hematemesis, hematochezia, or melanotic stools. GENITOURINARY: Denies frequency, urgency, nocturia, hematuria or incontinence (Storage/Irritative symptoms.) Low urinary stream, straining to void, urinary intermittency or hesitancy, splitting of the voiding stream, terminal dribbling. ENDOCRINOLOGIC: Denies polyuria, polydipsia, polyphagia or heat/cold intolerances. HEMATOLOGIC: Denies thrombophilia/previous clots, or coagulopathy/bleeding disorders. ONCOLOGIC: Denies personal history of malignancy. DERMATOLOGIC: Denies rashes or pruritus. PSYCHIATRIC: Denies any suicidal or homicidal ideation. Denies hallucinations. PAST MEDICAL HISTORY: [ Hypertension, hyperlipidemia, alcoholic liver cirrhosis with recurrent ascites, chronic thrombocytopenia, diabetes type 2, coronary artery disease with CABG x3, esophageal varices requiring banding 2022 ] PAST SURGICAL HISTORY: [ Tips placement in [facility], CABG x3 2022, appendectomy at age of 14 and recurrent paracentesis for management obtain ascites ] PAST SOCIAL HISTORY: [Patient lives with . Patient quit alcohol 30 years ago patient denies cigarette and recreational drug use ] FAMILY HISTORY: [ Hypertension, diabetes and cardiovascular disease ] Coded Allergies: No Known Allergies (Unverified Allergy, Unknown, 08/13/24) No Known Drug Allergies (Unverified Allergy, Unknown, 08/01/21) PHYSICAL EXAM GENERAL APPEARANCE: The patient is awake, alert, and oriented x2 with forgetfulness in no acute cardiopulmonary distress. NEUROLOGICAL: Cranial nerves II-XII grossly intact. Motor is 5/5 in bilateral upper and lower extremities proximal to distal. No sensory deficits. HEENT: Face is symmetric. Pupils are equal and reactive. Extraocular movements are intact. NECK: Supple. No JVD. No thyromegaly. No submental, submandibular, pre- /postauricular, occipital or supraclavicular lymphadenopathy. CHEST: Normal chest expansion. No Telemetry. LUNGS: Absence of any rales, rhonchi or any wheezing. CARDIOVASCULAR: Regular. S1 and S2 normal. No appreciable rubs, murmurs or gallops. ABDOMEN: Soft, nontender, and nondistended. There is no rebound, voluntary guarding, or rigidity. : Deferred. No Patiño. EXTREMITIES: Non-edematous and not cyanotic. No clubbing. Good capillary refill. SKIN: bruising to left temporal area and scratch to left side of the face Vital Sign (Last 24 Hours) 05/05/25 18:11 Temp 98.1 Pulse 79 Resp 20 B/P (MAP) 145/86 Pulse Ox 99 O2 Delivery Room Air* O2 Flow Rate 0 FiO2 21 LABS: Laboratory: Test 05/05/25 19:00 05/05/25 17:22 Range/Units Urine Color YELLOW YELLOW Urine Appearance CLEAR CLEAR Urine pH 5.5 5.0-8.0 Urine Specific [place] 1.025 1.001-1.031 Urine Protein NEGATIVE NEGATIVE mg/dL Urine Glucose (UA) >=1000 H NEGATIVE mg/dL Urine Ketones NEGATIVE NEGATIVE mg/dL Urine Occult Blood MODERATE H NEGATIVE Urine Nitrate NEGATIVE NEGATIVE Urine Bilirubin NEGATIVE NEGATIVE mg/dL Urine Urobilinogen 6 H 0.2-1.0 mg/dL Urine Leukocyte Esterase NEGATIVE NEGATIVE Oscar/uL Urine RBC 6-10 H 0-1 /HPF Urine WBC 2-5 H 0-1 /HPF Urine Squamous Epithelial Cells RARE 0-2 /HPF Urine Bacteria None None Seen /HPF Urine Hyaline Casts 2-5 H 0-1 /LPF /LPF White Blood Count 3.1 L 4.8-10.8 K/uL Red Blood Count 3.51 L 4.50-6.20 MIL/uL Hemoglobin 12.1 L 14.0-18.0 g/dL Hematocrit 34.5 L 42-54 % Mean Corpuscular Volume 98.3 79-99 fL Mean Corpuscular Hemoglobin 34.5 H 27.0-33.0 pg Mean Corpuscular Hemoglobin Concent 35.1 32.0-36.0 g/dL Red Cell Distribution Width 15.7 H 11.0-15.5 % Platelet Count 56 L 130-400 K/uL Mean Platelet Volume 9.9 7.5-10.5 fL Immature Granulocyte % (Auto) 0.3 0-1 % Neutrophils (%) (Auto) 63.0 40.0-77.0 % Lymphocytes (%) (Auto) 26.2 21.0-51.0 % Monocytes (%) (Auto) 7.0 3.0-13.0 % Eosinophils (%) (Auto) 3.2 0.0-8.0 % Basophils (%) (Auto) 0.3 0.0-5.0 % Neutrophils # (Auto) 2.0 1.8-7.7 K/uL Lymphocytes # (Auto) 0.8 L 1.0-4.8 K/uL Monocytes # (Auto) 0.2 0.1-1.0 K/uL Eosinophils # (Auto) 0.10 0.00-0.70 K/uL Basophils # (Auto) 0.01 0.00-0.20 K/uL Absolute Immature Granulocyte (auto 0.01 0-1 K/uL Nucleated Red Blood Cells 0.0 0.0-0.19 % Platelet Morphology Comment See comments Sodium Level 143 136-145 mmol/L Potassium Level 3.7 3.5-5.1 mmol/L Chloride Level 109 101-111 mmol/L Carbon Dioxide Level 25 21-32 mmol/L Blood Urea Nitrogen 22 H 7-18 mg/dL Creatinine 0.9 0.5-1.3 mg/dL Glomerular Filtration Rate Calc 92 >90 mL/min Random Glucose 175 H 70-105 mg/dL Total Calcium 8.5 8.5-10.1 mg/dL Total Bilirubin 3.3 H 0.2-1.0 mg/dL Aspartate Amino Transf (AST/SGOT) 23 10-37 U/L Alanine Aminotransferase (ALT/SGPT) 12 12-78 U/L Alkaline Phosphatase 107 50-136 U/L Ammonia 75 H 11-32 umol/L Troponin I High Sensitivity 12 4-75 ng/L Total Protein 6.1 6.0-8.3 g/dL Albumin 2.3 L 3.5-5.0 g/dL Current Medications Medications (Trade) Dose Ordered Sig/Dandre Route PRN Reason Start Time Stop Time Status Last Admin Dose Admin Lactulose (Constulose 20gm/ 30ml Udcup) 20 gm ONCE PO 05/05/25 18:30 05/05/25 22:30 05/05/25 18:52 20 GM DIAGNOSTICS / RADIOLOGY: [ ] ASSESSMENT: Acute hepatic encephalopathy POA Hyperammonemia POA Status post fall injury at home POA Right frontal scalp hematoma POA Gliosis and encephalomalacia in the left frontal lobe per CT POA Acute on chronic thrombocytopenia POA Acute leukopenia POA Liver cirrhosis with recurrent ascites POA Recent paracentesis POA Diabetes POA Hypertension POA Hyperlipidemia POA Mild protein calorie malnutrition Coronary artery disease with CABG x3 POA History of esophageal varices with banding POA PLAN: We will admit patient in medical floor We will start on consistent carb diet Start on lactulose 20 g t.id We will start on famotidine 20 mg p.o. daily for GI prophylaxis We will replace electrolytes as needed per protocol We will start on insulin sliding scale AC & HS with hypoglycemia protocol We will add prn medication for fever,pain,cough , nausea and vomiting We will reconcile home meds once medlist available Fall precaution Neuro check q.4 hours Will request dietary consultation to assess malnutrition We will request for case management service We will request for PT service to eval and treat We will request labs in am Further orders to follow depending on above results Case discussed with attending physician and came up with above treatment and plan of care. ADVANCED CARE PLANNING 1. Which of the following were discussed? Hospice Care - No Therapeutic options - Yes Advance Directives - No Other discussions - 2. Discussed with who? Patient and Marely Phillips 3. Voluntary nature of this service was explained to the patient? Yes 4. Amount of time spent - _22 min 5. Reviewed by Physician? (if this service was performed by NPP) Yes Patient seen and examined by me. Agree with note by AS400 ADMINISTRATOR SEE ADDITIONAL ORDERS PER CHART DISCUSSED WITH NURSING STAFF KO [facility] May 05, 2025 22:11
[2025-05-05] MEDS ORDERED: DEXTROSE 50%-WATER 50 ML DISP.SYRIN IV PRN (22:30)
[2025-05-05] MEDS ORDERED: PoTASSium chl 10% ELIXIR 20MEQ 20 MEQ/15 ML UDCUP PO PRN (22:30)
[2025-05-05] MEDS ORDERED: GLUCAGON 1MG KIT 1 MG ML IM PRN (22:30)
[2025-05-05] MEDS ORDERED: MAGNESIUM 2GM PREMIX 50ML 50 ML IV PRN (22:30)
[2025-05-06] VITALS (7 sets, daily range): BP systolic 104–131; BP diastolic 40–50; PULSE 50–74; RESP 12–18; TEMP 97.3–98.1; O2SAT 99–100
--- NOTE | 2025-05-06 00:20 | NUR ---
REPORT GIVEN TO NURSE KELLEY AT THIS TIME
[2025-05-06] MEDS ORDERED: ONDA-104 PO (01:23)
[2025-05-06] MEDS ORDERED: FURO40TA5 PO (01:23)
[2025-05-06] MEDS ORDERED: NAPR220C62 PO (01:23)
[2025-05-06] MEDS ORDERED: SPIR100T5 PO (01:23)
[2025-05-06] MEDS ORDERED: RIFA550T PO (01:23)
[2025-05-06] MEDS ORDERED: CARV6.25 PO (01:23)
[2025-05-06] MEDS ORDERED: FERS325 PO (01:23)
[2025-05-06] MEDS ORDERED: ELTR50TA PO (01:23)
[2025-05-06] MEDS ORDERED: ESCI10TA PO (01:23)
[2025-05-06 06:33] LABS: IMMATURE GRANULOCYTE ABSOLUTE 0.01 K/uL (0-1); NUCLEATED RED BLOOD CELLS 0.0 % (0.0-0.19); PLATELET COUNT (AUTO) 50 K/uL (130-400); RED BLOOD CELL COUNT(AUTO) 3.01 MIL/uL (4.50-6.20); RED CELL DISTRIBUTION WIDTH 15.3 % (11.0-15.5); WHITE BLOOD COUNT (AUTO) 3.2 K/uL (4.8-10.8)
[2025-05-06 06:44] LABS: ASPARTATE AMINOTRANSFERASE 17.0 U/L (10-37); CREATININE 1.0 mg/dL (0.5-1.3); GLOMERULAR FILTR. RATE CALC 81.0 mL/min (>90); GLUCOSE,RANDOM 116.0 mg/dL (70-105); SODIUM SERUM 147.0 mmol/L (136-145); TOTAL PROTEIN, SERUM 5.0 g/dL (6.0-8.3); UREA NITROGEN, BLOOD 17.0 mg/dL (7-18)
[2025-05-06] MEDS: PoTASSium chloRIDE 20MEQ ER 20 MEQ ERTAB PO PRN (07:22)
[2025-05-06] MEDS: FAMOTIDINE 20MG TAB PO SCH (08:59)
[2025-05-06] MEDS: LACTULOSE 20 GM/30 ML UDCUP PO SCH (08:59)
[2025-05-06] MEDS ORDERED: LACTULOSE 20 GM/30 ML UDCUP PO PRN (10:30)
--- NOTE | 2025-05-06 14:55 | PN ---
[facility] PROGRESS NOTE Date of Service: May 06, 2025 Time of Service: 14:51 Attending doctor Cordero SUBJECTIVE: [ 05/05 This is a 69-year-old male with past medical history of Hypertension, hyperlipidemia, chronic thrombocytopenia, diabetes type 2, coronary artery disease with CABG x3, esophageal varices requiring banding 2022 and alcoholic liver cirrhosis with recurrent ascites presents to the ED for complaints of altered mental status with increased lethargy over the past 2 days. Marely Phillips was at bedside during my evaluation who states patient has been taking lactulos 3 x daily and patient has been having multiple bouts of BM per day and when home health nurse visited the patient told the nurse about it and was instructed to just take the lactulose as needed so patient had stopped taking for the past 4 days as per and patient became more confused and becoming more weak she said.As per ,around 0130 am patient fell and landed on his left side sustaining a bruise around his left temporal area and sustained a scratch on his left face .As per patient started taking his Lactulose again today and he started having bowel movements .As per patient had a paracentesis done 3 weeks ago and 4L of fluid was removed. Seen and examined patient in the ED awake,alert and coherent with confusion and forgetfulness.Patient denies chest pain,palpitation,cough,abdominal pain ,nausea,vomiting ,bloody emesis and bloody stool. Latest vital signs temperature 98.1, heart rate 79 blood pressure 145/86 and saturation 99% on room air. Labs: WBC 3.1, neutrophils 63, hemoglobin 12, hematocrit 34, platelet count 56. BUN 22, creatinine 0.9, GFR 92 glucose 175, total bili 3.3, ammonia 75, troponin 12 albumin 2.3. Urinalysis significant for glucose above 1000, moderate urine occult blood, urine uro bili Inogen six, urine RBC 6-10, urine WBC 2-5 and hyaline casts 2-5. CT head without contrast result revealed right frontal scalp hematoma measuring 0.3 cm. Chronic microangiopathic ischemic changes. Gliosis and encephalomalacia in the left frontal lobe. Diffuse cerebral atrophy. No acute intracranial hemorrhage or territorial infarct. While in the ER patient received lactulose. We will admit patient for further medical management. 05/06 patient was seen by nurse practitioner and physician during rounding in room 306. As per family members/ at the bedside patient is doing much better today compared to the previous days. Patient normally follows up outpatient with Dr. Jonathan DUMONT for paracentesis. Last paracentesis was scheduled on April 07 and 4 L was removed. The neck is paracentesis is pending May 14 2025. During examination patient is stomach is not distended and patient denies any pain or fullness. To make sure there is no fluids /ascites in the abdominal area we will order CT abdomen/pelvis for further evaluation. Patient continues to be on lactulose t.i.d.. Most recent ammonia level 54. If CT abdomen/pelvis which showed moderate to large ascites we will perform paracentesis by IR and we will consult GI. At this moment I do not see a need to consult anyone since patient already has everything set up outpatient and appointments are made. We will re-evaluate patient tomorrow. A.m. labs] REVIEW OF SYSTEMS CONSTITUTIONAL: Denies fevers, chills, or night sweats. No unintentional weight loss reported. NEUROLOGICAL: Complained of Increased confusion and forgetfulness Denies headache, amaurosis fugax, sensory deficit, vertigo/spinning sensation, gait abnormalities, or tremors. ENT: No hearing loss, otalgia, otorrhea, rhinitis, rhinorrhea, hoarseness, or sore throat. CARDIOVASCULAR: Denies any exertional angina, dyspnea on exertion, orthopnea, paroxysmal nocturnal dyspnea, palpitations, life-threatening arrhythmias, claudication. PULMONARY: Denies any shortness of breath, cough, phlegm/sputum, hemoptysis, pleuritic chest pain. SLEEP: Denies morning headaches, daytime somnolence or napping. Denies difficulty falling asleep, staying asleep, waking from sleep. Denies knowledge of snoring. GASTROINTESTINAL: Denies any type of dysphagia to either liquids or solids. Denies nausea, vomiting, pyrosis, early satiety, abdominal pain, diarrhea, constipation, or changes in stool consistency or caliber. Denies coffee-ground emesis, hematemesis, hematochezia, or melanotic stools. GENITOURINARY: Denies frequency, urgency, nocturia, hematuria or incontinence (Storage/Irritative symptoms.) Low urinary stream, straining to void, urinary intermittency or hesitancy, splitting of the voiding stream, terminal dribbling. ENDOCRINOLOGIC: Denies polyuria, polydipsia, polyphagia or heat/cold intolerances. HEMATOLOGIC: Denies thrombophilia/previous clots, or coagulopathy/bleeding disorders. ONCOLOGIC: Denies personal history of malignancy. DERMATOLOGIC: Denies rashes or pruritus. PSYCHIATRIC: Denies any suicidal or homicidal ideation. Denies hallucinations. PHYSICAL EXAM GENERAL APPEARANCE: The patient is awake, alert, and oriented x2 with forgetfulness in no acute cardiopulmonary distress. NEUROLOGICAL: Cranial nerves II-XII grossly intact. Motor is 5/5 in bilateral upper and lower extremities proximal to distal. No sensory deficits. HEENT: Face is symmetric. Pupils are equal and reactive. Extraocular movements are intact. NECK: Supple. No JVD. No thyromegaly. No submental, submandibular, pre- /postauricular, occipital or supraclavicular lymphadenopathy. CHEST: Normal chest expansion. No Telemetry. LUNGS: Absence of any rales, rhonchi or any wheezing. CARDIOVASCULAR: Regular. S1 and S2 normal. No appreciable rubs, murmurs or gallops. ABDOMEN: Soft, nontender, and nondistended. There is no rebound, voluntary guarding, or rigidity. : Deferred. No Patiño. EXTREMITIES: Non-edematous and not cyanotic. No clubbing. Good capillary refill. SKIN: bruising to left temporal area and scratch to left side of the face Vital Signs (last 8hr) Date Time Temp Pulse Resp B/P (MAP) Pulse Ox O2 Delivery O2 Flow Rate FiO2 05/06/25 12:14 98.1 74 16 108/46 100 Room Air 05/06/25 07:56 98.1 51 12 104/40 99 Room Air LABS: Laboratory: Test 05/06/25 11:03 05/06/25 06:25 05/05/25 19:00 05/05/25 17:22 Range/Units Whole Blood Glucose 173 #H 70-110 MG/DL White Blood Count 3.2 L 4.8-10.8 K/uL Red Blood Count 3.01 L 4.50-6.20 MIL/uL Hemoglobin 10.5 L 14.0-18.0 g/dL Hematocrit 29.2 L 42-54 % Mean Corpuscular Volume 97.0 79-99 fL Mean Corpuscular Hemoglobin 34.9 H 27.0-33.0 pg Mean Corpuscular Hemoglobin Concent 36.0 32.0-36.0 g/dL Red Cell Distribution Width 15.3 11.0-15.5 % Platelet Count 50 L 130-400 K/uL Mean Platelet Volume 9.8 7.5-10.5 fL Immature Granulocyte % (Auto) 0.3 0-1 % Neutrophils (%) (Auto) 54.5 40.0-77.0 % Lymphocytes (%) (Auto) 33.0 21.0-51.0 % Monocytes (%) (Auto) 7.2 3.0-13.0 % Eosinophils (%) (Auto) 4.7 0.0-8.0 % Basophils (%) (Auto) 0.3 0.0-5.0 % Neutrophils # (Auto) 1.7 L 1.8-7.7 K/uL Lymphocytes # (Auto) 1.1 1.0-4.8 K/uL Monocytes # (Auto) 0.2 0.1-1.0 K/uL Eosinophils # (Auto) 0.15 0.00-0.70 K/uL Basophils # (Auto) 0.01 0.00-0.20 K/uL Absolute Immature Granulocyte (auto 0.01 0-1 K/uL Nucleated Red Blood Cells 0.0 0.0-0.19 % Sodium Level 147 H 136-145 mmol/L Potassium Level 3.4 L 3.5-5.1 mmol/L Chloride Level 110 101-111 mmol/L Carbon Dioxide Level 26 21-32 mmol/L Blood Urea Nitrogen 17 7-18 mg/dL Creatinine 1.0 0.5-1.3 mg/dL Glomerular Filtration Rate Calc 81 >90 mL/min Random Glucose 116 H 70-105 mg/dL Total Calcium 7.9 L 8.5-10.1 mg/dL Magnesium Level 2.00 1.80-2.40 mg/dL Total Bilirubin 2.4 #H 0.2-1.0 mg/dL Aspartate Amino Transf (AST/SGOT) 17 10-37 U/L Alanine Aminotransferase (ALT/SGPT) 10 L 12-78 U/L Alkaline Phosphatase 90 50-136 U/L Ammonia 54 #H 11-32 umol/L Total Protein 5.0 L 6.0-8.3 g/dL Albumin 1.9 L 3.5-5.0 g/dL Urine Color YELLOW YELLOW Urine Appearance CLEAR CLEAR Urine pH 5.5 5.0-8.0 Urine Specific [place] 1.025 1.001-1.031 Urine Protein NEGATIVE NEGATIVE mg/dL Urine Glucose (UA) >=1000 H NEGATIVE mg/dL Urine Ketones NEGATIVE NEGATIVE mg/dL Urine Occult Blood MODERATE H NEGATIVE Urine Nitrate NEGATIVE NEGATIVE Urine Bilirubin NEGATIVE NEGATIVE mg/dL Urine Urobilinogen 6 H 0.2-1.0 mg/dL Urine Leukocyte Esterase NEGATIVE NEGATIVE Oscar/uL Urine RBC 6-10 H 0-1 /HPF Urine WBC 2-5 H 0-1 /HPF Urine Squamous Epithelial Cells RARE 0-2 /HPF Urine Bacteria None None Seen /HPF Urine Hyaline Casts 2-5 H 0-1 /LPF /LPF Platelet Morphology Comment See comments Troponin I High Sensitivity 12 4-75 ng/L Current Medications Medications (Trade) Dose Ordered Sig/Dandre Route PRN Reason Start Time Stop Time Status Last Admin Dose Admin Acetaminophen (TYLenol 325MG TAB) 650 mg Q4H PRN PO MILD PAIN (1-3) 05/05/25 22:30 06/04/25 22:29 Acetaminophen (TYLenol 325MG TAB) 650 mg Q6H PRN PO TEMPERATURE GREATER THAN 101.5 05/05/25 22:30 06/04/25 22:29 Aspirin (Aspirin 81mg Chew Tab) 81 mg DAILY PO 05/07/25 09:00 06/06/25 08:59 Dextrose (D50w) 50 ml AD PRN IV HYPOGLYCEMIA PROTOCOL 05/05/25 22:30 06/04/25 22:29 Empaglifozin (Jardiance 10mg) 10 mg AM PO 05/07/25 09:00 06/06/25 08:59 Famotidine (Pepcid 20mg Tab) 20 mg DAILY PO 05/06/25 09:00 06/05/25 08:59 05/06/25 08:59 20 MG Ferrous Sulfate (Ferrous Sulfate) 325 mg DAILY PO 05/07/25 09:00 06/06/25 08:59 Furosemide (LASix 40MG TAB) 40 mg DAILY PO 05/07/25 09:00 06/06/25 08:59 Glucagon (Glucagon 1mg Kit) 1 mg AD PRN IM HYPOGLYCEMIA PROTOCOL 05/05/25 22:30 06/04/25 22:29 Home Med (Home Medication) DAILY PO 05/07/25 09:00 06/06/25 08:59 Home Med (Home Medication) (Escitalopram Oxalate (Lexapro)... DAILY PO 05/07/25 09:00 06/06/25 08:59 Insulin Human Regular (humuLIN R 100 UNIT/ML 3ML) INSULIN SLIDING SCAL... ACHS SQ 05/06/25 07:30 06/05/25 07:29 Lactulose (Constulose 20gm/ 30ml Udcup) 20 gm BID PRN PO CONSTIPATION 05/06/25 10:30 06/05/25 10:29 Lactulose (Constulose 20gm/ 30ml Udcup) 20 gm ONCE PO 05/05/25 18:30 05/05/25 22:30 DC 05/05/25 18:52 20 GM Lactulose (Constulose 20gm/ 30ml Udcup) 20 gm TID PO 05/06/25 09:00 06/05/25 08:59 05/06/25 08:59 20 GM Magnesium Sulfate 50 ml @ 0 mls/hr PROTOCOL PRN IV OTHER [SEE ORDER COMMENTS] 05/05/25 22:30 06/04/25 22:29 Miscellaneous Medication (Naproxen Sodium ) 220 mg BID PO 05/06/25 21:00 06/05/25 20:59 UNV Miscellaneous Medication (Spironolactone ) 100 mg DAILY PO 05/07/25 09:00 06/06/25 08:59 UNV Ondansetron HCl (zoFRAN 4MG TABLET) 4 mg TID PRN PO nausea/vomiting 05/06/25 10:00 06/05/25 09:59 Ondansetron HCl (zoFRAN 4MG INJ) 4 mg Q6H PRN IV NAUSEA/VOMITING 05/05/25 22:30 05/06/25 10:00 DC Potassium Chloride 100 ml @ 100 mls/hr AD PRN IV POTASSIUM PROTOCOL 05/05/25 22:30 06/04/25 22:29 Potassium Chloride (K-Dur/Klor-Con 20meq) 20 meq AD PRN PO POTASSIUM PROTOCOL 05/05/25 22:30 06/04/25 22:29 05/06/25 08:59 20 MEQ Potassium Chloride (KCl 10% Elixir 20meq/15ml) 20 meq AD PRN PO POTASSIUM PROTOCOL 05/05/25 22:30 06/04/25 22:29 Rifaximin (Xifaxan) 550 mg BID PO 05/06/25 21:00 06/05/25 20:59 DIAGNOSTICS / RADIOLOGY: [ ] ASSESSMENT: Acute hepatic encephalopathy POA Hyperammonemia POA Status post fall injury at home POA Right frontal scalp hematoma POA Gliosis and encephalomalacia in the left frontal lobe per CT POA Acute on chronic thrombocytopenia POA Acute leukopenia POA Liver cirrhosis with recurrent ascites POA Recent paracentesis POA Diabetes POA Hypertension POA Hyperlipidemia POA Mild protein calorie malnutrition Coronary artery disease with CABG x3 POA History of esophageal varices with banding POA PLAN: As per family members/ at the bedside patient is doing much better today compared to the previous days. Patient normally follows up outpatient with Dr. Jonathan DUMONT for paracentesis. Last paracentesis was scheduled on April 07 and 4 L was removed. The neck is paracentesis is pending May 14 2025. During examination patient is stomach is not distended and patient denies any pain or fullness. To make sure there is no fluids/ascites in the abdominal area we will order CT abdomen/pelvis for further evaluation. Patient continues to be on lactulose t.i.d.. Most recent ammonia level 54. If CT abdomen/pelvis which showed moderate to large ascites we will perform paracentesis by IR and we will consult GI. At this moment I do not see a need to consult anyone since patient already has everything set up outpatient and appointments are made. We will re-evaluate patient tomorrow. A.m. labs Continue in medical floor Continue on consistent carb diet Continue famotidine 20 mg p.o. daily for GI prophylaxis We will replace electrolytes as needed per protocol Continue on insulin sliding scale AC & HS with hypoglycemia protocol We will add prn medication for fever,pain,cough , nausea and vomiting Home medication reconciled by [facility] PREFITTER 05/06/2025 Fall precaution Neuro check q.4 hours dietary consultation to assess malnutrition We will request for case management service We will request for PT service to eval and treat Further orders to follow depending on above results Case discussed with attending physician and came up with above treatment and plan of care. ATTESTATION BY PHYSICIAN I have seen and examined the patient. I reviewed the documentation, medical decision making, and treatment plan as noted by the mid-level provider above. I agree with the findings and plan of care. Warren Cordero MD, [facility] May 06, 2025 14:55
--- NOTE | 2025-05-06 16:59 | HMCIMG ---
EXAM: CT Abdomen and Pelvis Without IV contrast CLINICAL HISTORY: ascities TECHNIQUE: Axial computed tomography images of the abdomen and pelvis without intravenous contrast. CONTRAST: No IV contrast. COMPARISON: Study dated 08/13/24. FINDINGS: LUNG BASES: Mild right and moderate left pleural effusion with underlying subsegmental collapse and consolidation. LIVER: Heterogeneous echotexture and irregular nodular contour. Portocaval stent in place. GALLBLADDER AND BILE DUCTS: The gallbladder appears within normal limits. No radioopaque gallstones are seen. No biliary ductal dilatation is evident. PANCREAS: Unremarkable. SPLEEN: Measures 12 cm. ADRENAL GLANDS: Unremarkable. KIDNEYS, URETERS, AND BLADDER: 10 mm and 8 mm simple cysts in the mid pole of the right kidney. The kidneys appear within normal limits. There is no hydronephrosis or hydroureter. No urinary calculi are seen. STOMACH AND BOWEL: Unremarkable appearance of the stomach and bowel. No evidence of bowel obstruction. No evidence suggesting enteritis or colitis. Colonic diverticulosis without diverticulitis. APPENDIX: No evidence of acute appendicitis on CT examination. PERITONEUM: Moderate ascites. No free air. Anterior abdominal wall edema. LYMPH NODES: No lymphadenopathy is evident. REPRODUCTIVE: Unremarkable as visualized. VASCULATURE: No evidence of abdominal aortic aneurysm. Atherosclerotic changes in the aorta and its branches. BONES: No aggressive appearing osseous lesion. No acute osseous pathology evident. Several subacute to chronic left rib fracture deformities noted. Moderate degenerative changes in the spine. IMPRESSION: 1. Moderate ascites. 2. Heterogeneous liver with irregular nodular contour, suggestive of cirrhosis. 3. Mild right and moderate left pleural effusion with subsegmental atelectasis and consolidation. 4. Portocaval stent in place. 5. Anterior abdominal wall edema. /[place]
--- NOTE | 2025-05-06 19:02 | NUR ---
MET W PATIENT /SPOUSE AT BEDSIDE. PT HAS HAD LIVER DISEASE > 30 YEARS, , STOPPED DRINKING /SMOKING WHEN HE WAS DIAGNOSED, BUT RECENTLY 2 YEARS AGO, LIVER DISEASE BECAUSE ++. SPOUSE STATES PROVIDES ALL CARE, HAS SOMEONE LOOK AFTER PATIENT WHEN SHE IS WORKING. N PROVIDER SERVICES. HOME SAFE AND ACCESSIBLE, REQUIRES HEP WITH ADLS, HAS ROLLING WALKER AND SHOWER CHAIR. STATES WOULD LIKE PATIENT TO BE DC'D TOMORROW IF POSSIBLE, IS DOING MUCH BETTER DCP IS HOME. SPOUSE TO PROVIDE TRANSPORT. MARY ANN REFER TO [facility] ON AGING / TRENT GUNDERSON. Addendum: 05/06/25 at 1906 by NIA WEEKS RN Amended: Links added.
[2025-05-06] MEDS: NAPROXEN SODIUM 220 MG PO SCH (21:00)
[2025-05-06] MEDS: RIFAXIMIN 550 MG TABLET PO SCH (21:09)
[2025-05-07] VITALS (7 sets, daily range): BP systolic 100–129; BP diastolic 40–58; PULSE 55–63; RESP 12–20; TEMP 97.3–98.1; O2SAT 96–100
[2025-05-07 05:18] LABS: IMMATURE GRANULOCYTE ABSOLUTE 0.01 K/uL (0-1); NUCLEATED RED BLOOD CELLS 0.0 % (0.0-0.19); PLATELET COUNT (AUTO) 39 K/uL (130-400); RED BLOOD CELL COUNT(AUTO) 2.68 MIL/uL (4.50-6.20); RED CELL DISTRIBUTION WIDTH 15.2 % (11.0-15.5); WHITE BLOOD COUNT (AUTO) 3.8 K/uL (4.8-10.8)
[2025-05-07 05:49] LABS: ASPARTATE AMINOTRANSFERASE 18.0 U/L (10-37); CREATININE 1.2 mg/dL (0.5-1.3); GLOMERULAR FILTR. RATE CALC 65.0 mL/min (>90); GLUCOSE,RANDOM 125.0 mg/dL (70-105); SODIUM SERUM 141.0 mmol/L (136-145); TOTAL PROTEIN, SERUM 4.6 g/dL (6.0-8.3); UREA NITROGEN, BLOOD 19.0 mg/dL (7-18)
[2025-05-07] MEDS: (Escitalopram Oxalate (Lexapro) 10 MG) PO SCH (09:00)
[2025-05-07] MEDS: ELTROMBOPAG OLAMINE PO SCH (09:00)
[2025-05-07] MEDS: ASPIRIN 81MG CHEW TAB PO SCH (09:00)
[2025-05-07] MEDS: FERROUS SULFATE 325 MG TABLET.DR PO SCH (09:16)
[2025-05-07] MEDS: EMPAGLIFLOZIN 10MG TABLET PO SCH (09:17)
[2025-05-07] MEDS: SPIRONOLACTONE 25 MG TAB PO SCH (09:17)
--- NOTE | 2025-05-07 12:04 | PN ---
[facility] PROGRESS NOTE Date of Service: May 07, 2025 Time of Service: 12:[address] Cordero SUBJECTIVE: [ 05/05 This is a 69-year-old male with past medical history of Hypertension, hyperlipidemia, chronic thrombocytopenia, diabetes type 2, coronary artery disease with CABG x3, esophageal varices requiring banding 2022 and alcoholic liver cirrhosis with recurrent ascites presents to the ED for complaints of altered mental status with increased lethargy over the past 2 days. Marely Phillips was at bedside during my evaluation who states patient has been taking lactulos 3 x daily and patient has been having multiple bouts of BM per day and when home health nurse visited the patient told the nurse about it and was instructed to just take the lactulose as needed so patient had stopped taking for the past 4 days as per and patient became more confused and becoming more weak she said.As per ,around 0130 am patient fell and landed on his left side sustaining a bruise around his left temporal area and sustained a scratch on his left face .As per patient started taking his Lactulose again today and he started having bowel movements .As per patient had a paracentesis done 3 weeks ago and 4L of fluid was removed. Seen and examined patient in the ED awake,alert and coherent with confusion and forgetfulness.Patient denies chest pain,palpitation,cough,abdominal pain ,n ausea,vomiting ,bloody emesis and bloody stool. Latest vital signs temperature 98.1, heart rate 79 blood pressure 145/86 and saturation 99% on room air. Labs: WBC 3.1, neutrophils 63, hemoglobin 12, hematocrit 34, platelet count 56. BUN 22, creatinine 0.9, GFR 92 glucose 175, total bili 3.3, ammonia 75, troponin 12 albumin 2.3. Urinalysis significant for glucose above 1000, m oderate urine occult blood, urine uro bili Inogen six, urine RBC 6-10, urine WBC 2-5 and hyaline casts 2-5. CT head without contrast result revealed right frontal scalp hematoma measuring 0.3 cm. Chronic microangiopathic ischemic changes. Gliosis and encephalomalacia in the left frontal lobe. Diffuse cerebral atrophy. No acute intracranial hemorrhage or territorial infarct. W hile in the ER patient received lactulose. We will admit patient for further medical management. 05/06 patient was seen by nurse practitioner and physician during rounding in room 306. As per family members/ at the bedside patient is doing much bett er today compared to the previous days. Patient normally follows up outpatient with Dr. Jonathan DUMONT for paracentesis. Last paracentesis was scheduled on April 07 and 4 L was removed. The neck is paracentesis is pending May 14 2025. During examination patient is stomach is not distended and patient denies any pain or fullness. To make sure there is no fluids/ascites in the abdominal area we will order CT abdomen/pelvis for further evaluation. Patient continues to be on lactulose t.i.d.. Most recent ammonia level 54. If CT abdomen/pelvis which showed moderate to large ascites we will perform paracentesis by IR and we will consult GI. At this moment I do not see a need to consult anyone since patient already has everything set up outpatient and appointments are made. We will re-evaluate patient tomorrow. A.m. labs 05/07 patient was seen by nurse practitioner and physician during roundings. Patient is very lethargic and disoriented. Family at the bedside. CT abdomen/pelvis came back positive for moderate ascites and cirrhosis platelets are dropping down today at 39. As per family members/ at the bedside patient is normally follows up with felt finisher Dr. Silva. We will consult felt finisher for recommendations/plan. We will also order IR for paracentesis tomorrow 05/08/2025. We will continue to monitor patient in the meantime. A.m. labs.] REVIEW OF SYSTEMS CONSTITUTIONAL: Denies fevers, chills, or night sweats. No unintentional weight loss reported. NEUROLOGICAL: Complained of Increased confusion and forgetfulness Denies heada ceci, amaurosis fugax, sensory deficit, vertigo/spinning sensation, gait abnormalities, or tremors. ENT: No hearing loss, otalgia, otorrhea, rhinitis, rhinorrhea, hoarseness, or sore throat. CARDIOVASCULAR: Denies any exertional angina, dyspnea on exertion, orthopnea, paroxysmal nocturnal dyspnea, palpitations, life-threatening arrhythmias, claudication. PULMONARY: Denies any shortness of breath, cough, phlegm/sputum, hemoptysis, pleuritic chest pain. SLEEP: Denies morning headaches, daytime somnolence or napping. Denies diffic ulty falling asleep, staying asleep, waking from sleep. Denies knowledge of snoring. GASTROINTESTINAL: Denies any type of dysphagia to either liquids or solids. Denies nausea, vomiting, pyrosis, early satiety, abdominal pain, diarrhea, constipation, or changes in stool consistency or caliber. Denies coffee-ground emesis, hematemesis, hematochezia, or melanotic stools. GENITOURINARY: Denies frequency, urgency, nocturia, hematuria or incontinence (Storage/Irritative symptoms.) Low urinary stream, straining to void, urinary intermittency or hesitancy, splitting of the voiding stream, terminal dribbling. ENDOCRINOLOGIC: Denies polyuria, polydipsia, polyphagia or heat/cold into lerances. HEMATOLOGIC: Denies thrombophilia/previous clots, or coagulopathy/bleeding disorders. ONCOLOGIC: Denies personal history of malignancy. DERMATOLOGIC: Denies rashes or pruritus. PSYCHIATRIC: Denies any suicidal or homicidal ideation. Denies hallucinations. PHYSICAL EXAM GENERAL APPEARANCE: The patient is awake, alert, and oriented x2 with forgetfulness in no acute cardiopulmonary distress. NEUROLOGICAL: Cranial nerves II-XII grossly intact. Motor is 5/5 in bilateral upper and lower extremities proximal to distal. No sensory deficits. HEENT: Face is symmetric. Pupils are equal and reactive. Extraocular movements are intact. NECK: Supple. No JVD. No thyromegaly. No submental, submandibular, pre- /postauricular, occipital or supraclavicular lymphadenopathy. CHEST: Normal chest expansion. No Telemetry. LUNGS: Absence of any rales, rhonchi or any wheezing. CARDIOVASCULAR: Regular. S1 and S2 normal. No appreciable rubs, murmurs or gallops. ABDOMEN: Soft, nontender, and nondistended. There is no rebound, voluntary guarding, or rigidity. : Deferred. No Patiño. EXTREMITIES: Non-edematous and not cyanotic. No clubbing. Good capillary refill. SKIN: bruising to left temporal area and scratch to left side of the face Vital Signs (last 8hr) Date Time Temp Pulse Resp B/P (MAP) Pulse Ox O2 Delivery O2 Flow Rate FiO2 05/07/25 11:46 98.1 57 14 121/40 100 Room Air 05/07/25 08:00 98.1 55 17 129/58 100 Room Air 05/07/25 04:08 97.3 57 18 100/43 99 Room Air LABS: Laboratory: Test 05/07/25 11:04 05/07/25 04:53 05/06/25 06:25 05/05/25 19:00 Range/Units Whole Blood Glucose 156 H 70-110 MG/DL White Blood Count 3.8 L 4.8-10.8 K/uL Red Blood Count 2.68 L 4.50-6.20 MIL/uL Hemoglobin 9.4 L 14.0-18.0 g/dL Hematocrit 26.1 L 42-54 % Mean Corpuscular Volume 97.4 79-99 fL Mean Corpuscular Hemoglobin 35.1 H 27.0-33.0 pg Mean Corpuscular Hemoglobin Concent 36.0 32.0-36.0 g/dL Red Cell Distribution Width 15.2 11.0-15.5 % Platelet Count 39 L 130-400 K/uL Mean Platelet Volume 9.8 7.5-10.5 fL Immature Granulocyte % (Auto) 0.3 0-1 % Neutrophils (%) (Auto) 53.8 40.0-77.0 % Lymphocytes (%) (Auto) 30.9 21.0-51.0 % Monocytes (%) (Auto) 9.1 3.0-13.0 % Eosinophils (%) (Auto) 5.6 0.0-8.0 % Basophils (%) (Auto) 0.3 0.0-5.0 % Neutrophils # (Auto) 2.0 1.8-7.7 K/uL Lymphocytes # (Auto) 1.2 1.0-4.8 K/uL Monocytes # (Auto) 0.3 0.1-1.0 K/uL Eosinophils # (Auto) 0.21 0.00-0.70 K/uL Basophils # (Auto) 0.01 0.00-0.20 K/uL Absolute Immature Granulocyte (auto 0.01 0-1 K/uL Nucleated Red Blood Cells 0.0 0.0-0.19 % Sodium Level 141 136-145 mmol/L Potassium Level 3.9 3.5-5.1 mmol/L Chloride Level 110 101-111 mmol/L Carbon Dioxide Level 24 21-32 mmol/L Blood Urea Nitrogen 19 H 7-18 mg/dL Creatinine 1.2 0.5-1.3 mg/dL Glomerular Filtration Rate Calc 65 >90 mL/min Random Glucose 125 H 70-105 mg/dL Total Calcium 7.9 L 8.5-10.1 mg/dL Magnesium Level 2.00 1.80-2.40 mg/dL Total Bilirubin 1.9 #H 0.2-1.0 mg/dL Direct Bilirubin 0.7 H 0.0-0.3 mg/dL Aspartate Amino Transf (AST/SGOT) 18 10-37 U/L Alanine Aminotransferase (ALT/SGPT) 9 L 12-78 U/L Alkaline Phosphatase 92 50-136 U/L Total Protein 4.6 L 6.0-8.3 g/dL Albumin 1.7 L 3.5-5.0 g/dL Ammonia 54 #H 11-32 umol/L Urine Color YELLOW YELLOW Urine Appearance CLEAR CLEAR Urine pH 5.5 5.0-8.0 Urine Specific [place] 1.025 1.001-1.031 Urine Protein NEGATIVE NEGATIVE mg/dL Urine Glucose (UA) >=1000 H NEGATIVE mg/dL Urine Ketones NEGATIVE NEGATIVE mg/dL Urine Occult Blood MODERATE H NEGATIVE Urine Nitrate NEGATIVE NEGATIVE Urine Bilirubin NEGATIVE NEGATIVE mg/dL Urine Urobilinogen 6 H 0.2-1.0 mg/dL Urine Leukocyte Esterase NEGATIVE NEGATIVE Oscar/uL Urine RBC 6-10 H 0-1 /HPF Urine WBC 2-5 H 0-1 /HPF Urine Squamous Epithelial Cells RARE 0-2 /HPF Urine Bacteria None None Seen /HPF Urine Hyaline Casts 2-5 H 0-1 /LPF /LPF Test 05/05/25 17:22 Range/Units Platelet Morphology Comment See comments Troponin I High Sensitivity 12 4-75 ng/L Current Medications Medications (Trade) Dose Ordered Sig/Dandre Route PRN Reason Start Time Stop Time Status Last Admin Dose Admin Acetaminophen (TYLenol 325MG TAB) 650 mg Q4H PRN PO MILD PAIN (1-3) 05/05/25 22:30 06/04/25 22:29 Acetaminophen (TYLenol 325MG TAB) 650 mg Q6H PRN PO TEMPERATURE GREATER THAN 101.5 05/05/25 22:30 06/04/25 22:29 Aspirin (Aspirin 81mg Chew Tab) 81 mg DAILY PO 05/07/25 09:00 06/06/25 08:59 Dextrose (D50w) 50 ml AD PRN IV HYPOGLYCEMIA PROTOCOL 05/05/25 22:30 06/04/25 22:29 Empaglifozin (Jardiance 10mg) 10 mg AM PO 05/07/25 09:00 06/06/25 08:59 05/07/25 09:17 10 MG Famotidine (Pepcid 20mg Tab) 20 mg DAILY PO 05/06/25 09:00 06/05/25 08:59 05/07/25 09:16 20 MG Ferrous Sulfate (Ferrous Sulfate) 325 mg DAILY PO 05/07/25 09:00 06/06/25 08:59 05/07/25 09:16 325 MG Furosemide (LASix 40MG TAB) 40 mg DAILY PO 05/07/25 09:00 06/06/25 08:59 05/07/25 09:16 40 MG Glucagon (Glucagon 1mg Kit) 1 mg AD PRN IM HYPOGLYCEMIA PROTOCOL 05/05/25 22:30 06/04/25 22:29 Home Med (Home Medication) DAILY PO 05/07/25 09:00 06/06/25 08:59 Home Med (Home Medication) (Escitalopram Oxalate (Lexapro)... DAILY PO 05/07/25 09:00 06/06/25 08:59 Home Med (Home Medication) (Naproxen Sodium 220 MG) BID PO 05/06/25 21:00 06/05/25 20:59 Insulin Human Regular (humuLIN R 100 UNIT/ML 3ML) INSULIN SLIDING SCAL... ACHS SQ 05/06/25 07:30 06/05/25 07:29 Lactulose (Constulose 20gm/ 30ml Udcup) 20 gm BID PRN PO CONSTIPATION 05/06/25 10:30 06/05/25 10:29 Lactulose (Constulose 20gm/ 30ml Udcup) 20 gm ONCE PO 05/05/25 18:30 05/05/25 22:30 DC 05/05/25 18:52 20 GM Lactulose (Constulose 20gm/ 30ml Udcup) 20 gm TID PO 05/06/25 09:00 06/05/25 08:59 05/07/25 09:18 20 GM Magnesium Sulfate 50 ml @ 0 mls/hr PROTOCOL PRN IV OTHER [SEE ORDER COMMENTS] 05/05/25 22:30 06/04/25 22:29 Ondansetron HCl (zoFRAN 4MG TABLET) 4 mg TID PRN PO nausea/vomiting 05/06/25 10:00 06/05/25 09:59 Ondansetron HCl (zoFRAN 4MG INJ) 4 mg Q6H PRN IV NAUSEA/VOMITING 05/05/25 22:30 05/06/25 10:00 DC Potassium Chloride 100 ml @ 100 mls/hr AD PRN IV POTASSIUM PROTOCOL 05/05/25 22:30 06/04/25 22:29 Potassium Chloride (K-Dur/Klor-Con 20meq) 20 meq AD PRN PO POTASSIUM PROTOCOL 05/05/25 22:30 06/04/25 22:29 05/06/25 08:59 20 MEQ Potassium Chloride (KCl 10% Elixir 20meq/15ml) 20 meq AD PRN PO POTASSIUM PROTOCOL 05/05/25 22:30 06/04/25 22:29 Rifaximin (Xifaxan) 550 mg BID PO 05/06/25 21:00 06/05/25 20:59 05/07/25 09:17 550 MG Spironolactone (Aldactone 25mg) 100 mg DAILY PO 05/07/25 09:00 06/06/25 08:59 05/07/25 09:17 100 MG DIAGNOSTICS / RADIOLOGY: [ ] ASSESSMENT: Acute hepatic encephalopathy POA Hyperammonemia POA Status post fall injury at home POA Right frontal scalp hematoma POA Gliosis and encephalomalacia in the left frontal lobe per CT POA Acute on chronic thrombocytopenia POA Acute leukopenia POA Liver cirrhosis with recurrent ascites POA Recent paracentesis POA Diabetes POA Hypertension POA Hyperlipidemia POA Mild protein calorie malnutrition Coronary artery disease with CABG x3 POA History of esophageal varices with banding POA PLAN: Patient is very lethargic and disoriented. Family at the bedside. CT abdomen/pelvis came back positive for moderate ascites and cirrhosis platelets are dropping down today at 39. As per family members/ at the bedside patient is normally follows up with felt finisher Dr. Silva. We will consult felt finisher for recommendations/plan. We will also order IR for paracentesis tomorrow 05/08/2025. We will continue to monitor patient in the meantime. A.m. labs. Patient normally follows up outpatient with Dr. Helder DUMONT for paracentesis. Last paracentesis was scheduled on April 07 and 4 L was removed. The next is paracentesis is pending May 14 2025. Continue in medical floor Continue on consistent carb diet Continue famotidine 20 mg p.o. daily for GI prophylaxis We will replace electrolytes as needed per protocol Continue on insulin sliding scale AC & HS with hypoglycemia protocol We will add prn medication for fever,pain,cough , nausea and vomiting Home medication reconciled by INSOLE FILLER 05/06/2025 Fall precaution Neuro check q.4 hours dietary consultation to assess malnutrition We will request for case management service We will request for PT service to eval and treat Further orders to follow depending on above results Case discussed with attending physician and came up with above treatment and plan of care. ATTESTATION BY PHYSICIAN I have seen and examined the patient. I reviewed the documentation, medical decision making, and treatment plan as noted by the mid-level provider above. I agree with the findings and plan of care. Warren Cordero MD, [facility] May 07, 2025 12:03
[2025-05-08 00:26] VITALS: BP 109/40; PULSE 57; RESP 18; TEMP 98
[2025-05-08 00:33] VITALS: BP 113/47; PULSE 57; RESP 18; TEMP 98
[2025-05-08 03:36] VITALS: BP 102/42; PULSE 51; RESP 16; TEMP 97.7
[2025-05-08 05:24] LABS: IMMATURE GRANULOCYTE ABSOLUTE 0.01 K/uL (0-1); NUCLEATED RED BLOOD CELLS 0.0 % (0.0-0.19); PLATELET COUNT (AUTO) 42 K/uL (130-400); RED BLOOD CELL COUNT(AUTO) 2.80 MIL/uL (4.50-6.20); RED CELL DISTRIBUTION WIDTH 15.1 % (11.0-15.5); WHITE BLOOD COUNT (AUTO) 4.1 K/uL (4.8-10.8)
[2025-05-08 05:38] LABS: ASPARTATE AMINOTRANSFERASE 26.0 U/L (10-37); CREATININE 1.0 mg/dL (0.5-1.3); GLOMERULAR FILTR. RATE CALC 81.0 mL/min (>90); GLUCOSE,RANDOM 87.0 mg/dL (70-105); SODIUM SERUM 139.0 mmol/L (136-145); TOTAL PROTEIN, SERUM 4.6 g/dL (6.0-8.3); UREA NITROGEN, BLOOD 21.0 mg/dL (7-18)
[2025-05-08 08:00] VITALS: BP 109/54; PULSE 60; RESP 18; TEMP 97.9; O2SAT 100
--- NOTE | 2025-05-08 08:00 | NUR ---
SPIRONOLACTONE HELD IN ORDER TO PREVENT HYPOTENSION. CURRENT BP: 110/40. A.M. LASIX ADMINISTERED.
--- NOTE | 2025-05-08 08:21 | CONS ---
REFERRING PHYSICIAN: Hospitalist. REASON FOR CONSULTATION: Thrombocytopenia. HISTORY OF PRESENT ILLNESS: A 69-year-old man well known to me with hypertension, hyperlipidemia, coronary artery disease, thrombocytopenia, alcoholic cirrhosis of the liver who became increasingly lethargic over 2 days. The home health nurse had taken him off lactulose 2 days prior. He had stopped taking it. He came in with hepatic encephalopathy. He had a bruise in his left temporal area. His platelets were low. He is encephalopathic. His CT brain showed a right scalp hematoma. No intracranial hemorrhage. He has been treated for the same. He is very hypotensive. PHYSICAL EXAMINATION: GENERAL: Elderly man. VITAL SIGNS: Blood pressure 102/42, pulse 51, respirations 20. CHEST: Clear. ABDOMEN: Soft with ascites. EXTREMITIES: Show edema. NEUROLOGIC: He is still encephalopathic, is very slow to answer me. LABORATORY DATA: CBC: 4.9; platelets 42,000. IMPRESSION: 1. Chronic thrombocytopenia, off his Promacta treatment. 2. Cirrhosis of liver, hepatic encephalopathy, off his lactulose, type 2 diabetes, coronary artery disease, profound diuresis by the GI, put him on Lasix 40 b.i.d. and he has lost 40 pounds. PLAN: Continue lactulose and Xifaxan. Reinstitute the Promacta for his platelets. Discussed with he and his at the bedside. TID: [id number] RECEIPT: [id number]
[2025-05-08 12:00] VITALS: BP 113/44; PULSE 59; RESP 18; TEMP 97.9
--- NOTE | 2025-05-08 12:00 | NUR ---
RE: PARACENTESIS IMAGES TAKEN AND REVIEWED BY DR Domo ROJAS. NOT ENOUGH FLUID SEEN FOR PROCEDURE TO BE DONE SAFELY. PROCEDURE CANCELLED. PROCEDURE OUTCOME REPORTED PATIENT AND VERBALIZED UNDERSTANDING. REPORT GIVEN TO NATHANAEL HARRIS AND PATIENT TRANSPORTED TO [facility]– [place]note 2[place] VIA W/C AT 1200.
--- NOTE | 2025-05-08 12:46 | PN ---
[facility] PROGRESS NOTE Date of Service: May 08, 2025 Time of Service: 12:44 SUBJECTIVE: [ 05/05 This is a 69-year-old male with past medical history of Hypertension, hyperlipidemia, chronic thrombocytopenia, diabetes type 2, coronary artery disease with CABG x3, esophageal varices requiring banding 2022 and alcoholic liver cirrhosis with recurrent ascites presents to the ED for complaints of altered mental status with increased lethargy over the past 2 days. Marely Phillips was at bedside during my evaluation who states patient has been taking lactulos 3 x daily and patient has been having multiple bouts of BM per day and when home health nurse visited the patient told the nurse about it and was instructed to just take the lactulose as needed so patient had stopped taking for the past 4 days as per and patient became more confused and becoming more weak she said.As per ,around 0130 am patient fell and landed on his left side sustaining a bruise around his left temporal area and sustained a scr atch on his left face .As per patient started taking his Lactulose again today and he started having bowel movements .As per patient had a paracentesis done 3 weeks ago and 4L of fluid was removed. Seen and examined patient in the ED awake,alert and coherent with confusion and forgetfulness.Patient denies chest pain,palpitation,cough,abdominal pain ,nausea,vomiting ,bloody emesis and bloody stool. Latest vital signs temperature 98.1, heart rate 79 blood pressure 145/86 and saturation 99% on room air. Labs: WBC 3.1, neutrophils 63, hemoglobin 12, hematocrit 34, platelet count 56. BUN 22, creatinine 0.9, GFR 92 glucose 175, total bili 3.3, ammonia 75, troponin 12 albumin 2.3. Urinalysis significant for glucose above 1000, moderate urine occult blood, urine uro bili Inogen six, urine RBC 6-10, urine WBC 2-5 and hyaline casts 2-5. CT head without contrast result revealed right frontal scalp hematoma measuring 0.3 cm. Chronic microangiopathic ischemic changes. Gliosis and encephalomalacia in the left frontal lobe. Diffuse cerebral atrophy. No acute intracranial hemorrhage or territorial infarct. While in the ER patient received lactulose. We will admit patient for further medical management. 05/06 patient was seen by nurse practitioner and physician during rounding in room 306. As per family members/ at the bedside patient is doing much better today compared to the previous days. Patient normally follows up outpatient with Dr. Jonathan DUMONT for paracentesis. Last paracentesis was s cheduled on April 07 and 4 L was removed. The neck is paracentesis is pending May 14 2025. During examination patient is stomach is not distended and patient denies any pain or fullness. To make sure there is no fluids/ascites in the abdominal area we will order CT abdomen/pelvis for further evaluation. Patient continues to be on lactulose t.i.d.. Most recent ammonia level 54. If CT abdomen/pelvis which showed moderate to large ascites we will perform paracentesis by IR and we will consult GI. At this moment I do not see a need to consult anyone since patient already has everything set up outpatient and appointments are made. We will re-evaluate patient tomorrow. A.m. labs 05/07 patient was seen by nurse practitioner and physician during roundings. Patient is very lethargic and disoriented. Family at the bedside. CT abdomen/pelvis came back positive for moderate ascites and cirrhosis platelets are dropping down today at 39. As per family members/ at the bedside patient is normally follows up with churn operator Dr. Silav. We will consult churn operator for recommendations/plan. We will also order IR for paracentesis tomorrow 05/08/2025. We will continue to monitor patient in the meantime. A.m. labs. 05/08 patient is seen and examined at bedside, discussed with the RN, no acute events overnight, awake, following commands, having good bowel movements per my discussion with the was at the bedside. Patient is scheduled for paracentesis today by IR. If hemodynamically stable, anticipate discharge home by the end of the day. Patient evaluated by churn operator, home regimen of [place] [facility] [place]. Continue lactulose and Xifaxan. Platelet counts better. Can follow up as an outpatient with the churn operator. REVIEW OF SYSTEMS CONSTITUTIONAL: Denies fevers, chills, or night sweats. No unintentional weight loss reported. NEUROLOGICAL: Complained of Increased confusion and forgetfulness Denies headache, amaurosis fugax, sensory deficit, vertigo/spinning sensation, gait abnormalities, or tremors. ENT: No hearing loss, otalgia, otorrhea, rhinitis, rhinorrhea, hoarseness, or sore throat. CARDIOVASCULAR: Denies any exertional angina, dyspnea on exertion, orthopnea, paroxysmal nocturnal dyspnea, palpitations, life-threatening arrhythmias, claudication. PULMONARY: Denies any shortness of breath, cough, phlegm/sputum, hemoptysis, pleuritic chest pain. SLEEP: Denies morning headaches, daytime somnolence or napping. Denies difficulty falling asleep, staying asleep, waking from sleep. Denies knowledge of snoring. GASTROINTESTINAL: Denies any type of dysphagia to either liquids or solids. Denies nausea, vomiting, pyrosis, early satiety, abdominal pain, diarrhea, constipation, or changes in stool consistency or caliber. Denies coffee-ground emesis, hematemesis, hematochezia, or melanotic stools. GENITOURINARY: Denies frequency, urgency, nocturia, hematuria or incontinence (Storage/Irritative symptoms.) Low urinary stream, straining to void, urinary intermittency or hesitancy, splitting of the voiding stream, terminal dribbling. ENDOCRINOLOGIC: Denies polyuria, polydipsia, polyphagia or heat/cold intolerances. HEMATOLOGIC: Denies thrombophilia/previous clots, or coagulopathy/bleeding disorders. ONCOLOGIC: Denies personal history of malignancy. DERMATOLOGIC: Denies rashes or pruritus. PSYCHIATRIC: Denies any suicidal or homicidal ideation. Denies hallucinations. PHYSICAL EXAM GENERAL APPEARANCE: The patient is awake, alert, and oriented x2 with forgetfulness in no acute cardiopulmonary distress. NEUROLOGICAL: Cranial nerves II-XII grossly intact. Motor is 5/5 in bilateral upper and lower extremities proximal to distal. No sensory deficits. HEENT: Face is symmetric. Pupils are equal and reactive. Extraocular movements are intact. NECK: Supple. No JVD. No thyromegaly. No submental, submandibular, pre-/postauricular, occipital or supraclavicular lymphadenopathy. CHEST: Normal chest expansion. No Telemetry. LUNGS: Absence of any rales, rhonchi or any wheezing. CARDIOVASCULAR: Regular. S1 and S2 normal. No appreciable rubs, murmurs or gallops. ABDOMEN: Soft, nontender, and nondistended. There is no rebound, voluntary guarding, or rigidity. : Deferred. No Patiño. EXTREMITIES: Non-edematous and not cyanotic. No clubbing. Good capillary refill. SKIN: bruising to left temporal area and scratch to left side of the face Vital Signs (last 8hr) Date Time Temp Pulse Resp B/P (MAP) Pulse Ox O2 Delivery O2 Flow Rate FiO2 05/08/25 12:00 97.9 59 18 113/44 100 Room Air 05/08/25 08:00 100 Room Air* 0 21 05/08/25 08:00 97.9 60 18 109/54 100 Room Air LABS: Laboratory: Test 05/08/25 12:18 05/08/25 05:10 05/08/25 05:07 05/07/25 04:53 Range/Units Whole Blood Glucose 165 #H 70-110 MG/DL White Blood Count 4.1 L 4.8-10.8 K/uL Red Blood Count 2.80 L 4.50-6.20 MIL/uL Hemoglobin 9.7 L 14.0-18.0 g/dL Hematocrit 28.3 L 42-54 % Mean Corpuscular Volume 101.1 H 79-99 fL Mean Corpuscular Hemoglobin 34.6 H 27.0-33.0 pg Mean Corpuscular Hemoglobin Concent 34.3 32.0-36.0 g/dL Red Cell Distribution Width 15.1 11.0-15.5 % Platelet Count 42 L 130-400 K/uL Mean Platelet Volume 10.3 7.5-10.5 fL Immature Granulocyte % (Auto) 0.2 0-1 % Neutrophils (%) (Auto) 57.2 40.0-77.0 % Lymphocytes (%) (Auto) 28.1 21.0-51.0 % Monocytes (%) (Auto) 8.6 3.0-13.0 % Eosinophils (%) (Auto) 5.7 0.0-8.0 % Basophils (%) (Auto) 0.2 0.0-5.0 % Neutrophils # (Auto) 2.3 1.8-7.7 K/uL Lymphocytes # (Auto) 1.1 1.0-4.8 K/uL Monocytes # (Auto) 0.4 0.1-1.0 K/uL Eosinophils # (Auto) 0.23 0.00-0.70 K/uL Basophils # (Auto) 0.01 0.00-0.20 K/uL Absolute Immature Granulocyte (auto 0.01 0-1 K/uL Nucleated Red Blood Cells 0.0 0.0-0.19 % Sodium Level 139 136-145 mmol/L Potassium Level 4.1 3.5-5.1 mmol/L Chloride Level 109 101-111 mmol/L Carbon Dioxide Level 27 21-32 mmol/L Blood Urea Nitrogen 21 H 7-18 mg/dL Creatinine 1.0 0.5-1.3 mg/dL Glomerular Filtration Rate Calc 81 >90 mL/min Random Glucose 87 70-105 mg/dL Total Calcium 7.3 L 8.5-10.1 mg/dL Magnesium Level 2.00 1.80-2.40 mg/dL Total Bilirubin 1.6 H 0.2-1.0 mg/dL Aspartate Amino Transf (AST/SGOT) 26 10-37 U/L Alanine Aminotransferase (ALT/SGPT) 13 12-78 U/L Alkaline Phosphatase 124 50-136 U/L Ammonia 40 H 11-32 umol/L Total Protein 4.6 L 6.0-8.3 g/dL Albumin 1.7 L 3.5-5.0 g/dL Bedside Glucose Comment Notified Nurse Direct Bilirubin 0.7 H 0.0-0.3 mg/dL Current Medications Medications (Trade) Dose Ordered Sig/Dandre Route PRN Reason Start Time Stop Time Status Last Admin Dose Admin Acetaminophen (TYLenol 325MG TAB) 650 mg Q4H PRN PO MILD PAIN (1-3) 05/05/25 22:30 06/04/25 22:29 Acetaminophen (TYLenol 325MG TAB) 650 mg Q6H PRN PO TEMPERATURE GREATER THAN 101.5 05/05/25 22:30 06/04/25 22:29 Aspirin (Aspirin 81mg Chew Tab) 81 mg DAILY PO 05/07/25 09:00 06/06/25 08:59 Dextrose (D50w) 50 ml AD PRN IV HYPOGLYCEMIA PROTOCOL 05/05/25 22:30 06/04/25 22:29 Empaglifozin (Jardiance 10mg) 10 mg AM PO 05/07/25 09:00 06/06/25 08:59 05/08/25 07:56 10 MG Famotidine (Pepcid 20mg Tab) 20 mg DAILY PO 05/06/25 09:00 06/05/25 08:59 05/08/25 07:52 20 MG Ferrous Sulfate (Ferrous Sulfate) 325 mg DAILY PO 05/07/25 09:00 06/06/25 08:59 05/08/25 07:52 325 MG Furosemide (LASix 40MG TAB) 40 mg DAILY PO 05/07/25 09:00 06/06/25 08:59 05/08/25 07:59 40 MG Glucagon (Glucagon 1mg Kit) 1 mg AD PRN IM HYPOGLYCEMIA PROTOCOL 05/05/25 22:30 06/04/25 22:29 Home Med (Home Medication) DAILY PO 05/07/25 09:00 06/06/25 08:59 Home Med (Home Medication) (Escitalopram Oxalate (Lexapro)... DAILY PO 05/07/25 09:00 06/06/25 08:59 Home Med (Home Medication) (Naproxen Sodium 220 MG) BID PO 05/06/25 21:00 06/05/25 20:59 Insulin Human Regular (humuLIN R 100 UNIT/ML 3ML) INSULIN SLIDING SCAL... ACHS SQ 05/06/25 07:30 06/05/25 07:29 Lactulose (Constulose 20gm/ 30ml Udcup) 20 gm BID PRN PO CONSTIPATION 05/06/25 10:30 06/05/25 10:29 Lactulose (Constulose 20gm/ 30ml Udcup) 20 gm ONCE PO 05/05/25 18:30 05/05/25 22:30 DC 05/05/25 18:52 20 GM Lactulose (Constulose 20gm/ 30ml Udcup) 20 gm TID PO 05/06/25 09:00 06/05/25 08:59 05/08/25 07:56 20 GM Magnesium Sulfate 50 ml @ 0 mls/hr PROTOCOL PRN IV OTHER [SEE ORDER COMMENTS] 05/05/25 22:30 06/04/25 22:29 Ondansetron HCl (zoFRAN 4MG TABLET) 4 mg TID PRN PO nausea/vomiting 05/06/25 10:00 06/05/25 09:59 Ondansetron HCl (zoFRAN 4MG INJ) 4 mg Q6H PRN IV NAUSEA/VOMITING 05/05/25 22:30 05/06/25 10:00 DC Potassium Chloride 100 ml @ 100 mls/hr AD PRN IV POTASSIUM PROTOCOL 05/05/25 22:30 06/04/25 22:29 Potassium Chloride (K-Dur/Klor-Con 20meq) 20 meq AD PRN PO POTASSIUM PROTOCOL 05/05/25 22:30 06/04/25 22:29 05/06/25 08:59 20 MEQ Potassium Chloride (KCl 10% Elixir 20meq/15ml) 20 meq AD PRN PO POTASSIUM PROTOCOL 05/05/25 22:30 06/04/25 22:29 Rifaximin (Xifaxan) 550 mg BID PO 05/06/25 21:00 06/05/25 20:59 05/08/25 07:52 550 MG Spironolactone (Aldactone 25mg) 100 mg DAILY PO 05/07/25 09:00 06/06/25 08:59 05/07/25 09:17 100 MG DIAGNOSTICS / RADIOLOGY: [ ] ASSESSMENT: Acute hepatic encephalopathy POA Hyperammonemia POA Status post fall injury at home POA Right frontal scalp hematoma POA Gliosis and encephalomalacia in the left frontal lobe per CT POA Acute on chronic thrombocytopenia POA Acute leukopenia POA Liver cirrhosis with recurrent ascites POA Recent paracentesis POA Diabetes POA Hypertension POA Hyperlipidemia POA Mild protein calorie malnutrition Coronary artery disease with CABG x3 POA History of esophageal varices with banding POA PLAN: patient is seen and examined at bedside, discussed with the RN, no acute events overnight, awake, following commands, having good bowel movements per my discussion with the was at the bedside. Patient is scheduled for paracentesis today by IR. If hemodynamically stable, anticipate discharge home by the end of the day. Patient evaluated by churn operator, home regimen of from [facility] resumed. Continue lactulose and Xifaxan. Platelet counts better. Can foll ow up as an outpatient with the churn operator. Continue in medical floor Continue on consistent carb diet Continue famotidine 20 mg p.o. daily for GI prophylaxis We will replace electrolytes as needed per protocol Continue on insulin sliding scale AC & HS with hypoglycemia protocol We will add prn medication for fever,pain,cough , nausea and vomiting Home medication reconciled by [employer] 05/06/2025 Fall precaution Neuro check q.4 hours dietary consultation to assess malnutrition We will request for case management service We will request for PT service to eval and treat Further orders to follow depending on above results YARY HAMMOND MD May 08, 2025 12:45
--- NOTE | 2025-05-08 15:03 | NUR ---
Nutrition consult per PCM eval Reviewed labs, notes, and medications. Pt with alcoholic liver cirrhosis w/ ascites, continues lethargic and disoriented, 60 gm cho + easy to chew, lactulose, lasix, Fe, elevated BUN 21, Cr WNL, Ca 7.3(L), bilirubin 1.6(H) per chart review. 240 ml balance 05/07/25, 75 %PO intake, wt via standing scale, liquid loose BM 05/07/25, no ulcers, mild muscle and fat loss, no edema, uses dentures per nursing. Pt with non-severe PCM, Supplement thiamin 100 mg/day for 5-7 days + MVI QD for at least 10 days. Recommendations: -Provide 60 gm cho + HH diet + prostat jello tid w/ trays -Monitor PO intake -Encourage PO intake as able -Monitor BM -If no BM >3 days consider stool softener -Consider probiotics QD per diarrhea -Monitor electrolytes -Replenish electrolytes per protocol -Monitor wts -Reweigh as able -Order Vit D, vit b-12 labs to rule out deficiencies -Provide b-complex QD -Texture per [employer] recs -Recommend Pt to follow up with PCP -Monitor goals of care RD to follow + available for consult per protocol Addendum: 05/08/25 at [address] Amended: Links added.
--- NOTE | 2025-05-08 15:13 | HMCIMG ---
Ascites SCAN History: Abdominal distention. Patient had TIPS revision on 04/04/2025. FINDINGS: There is no ascites throughout all 4 quadrants. IMPRESSION: No ascites seen in all 4 quadrants. I would recommend patient return post TIPS revision in one month and every 3 months with ultrasound.
[2025-05-08 16:00] VITALS: BP 116/46; PULSE 63; RESP 18; TEMP 98.2
--- NOTE | 2025-05-08 18:00 | NUR ---
DISCHARGE PERIPHERAL IV REMOVED FOR DISCHARGE DISCHARGE EDUCATION AND INSTRUCTIONS PROVIDED TO PATIENT AND FAMILY. PATIENT AND FAMILY AWARE OF FOLLOW UP APPOINTMENT WITH DR. ALONSO 05/14/25. PATIENT AND FAMILY AWARE TO FOLLOW UP WITH PCP IN 3-5 DAYS. ALL QUESTIONS ANSWERED.
--- NOTE | 2025-05-09 09:00 | DS ---
Discharge Summary Hospital Course Summary: Date of service 05/08/2025 Patient admitted to hospital May 05, 2025 with the following history of the present illness: This is a 69-year-old male with past medical history of Hypertension, hyperlipidemia, chronic thrombocytopenia, diabetes type 2, coronary artery disease with CABG x3, esophageal varices requiring banding 2022 and alcoholic liver cirrhosis with recurrent ascites presents to the ED for complaints of altered mental status with increased lethargy over the past 2 days. Marely Phillips was at bedside during my evaluation who states patient has been taking lactulos 3 x daily and patient has been having multiple bouts of BM per day and when home health nurse visited the patient told the nurse about it and was instructed to just take the lactulose as needed so patient had stopped taking for the past 4 days as per and patient became more confused and becoming more weak she said.As per ,around 0130 am patient fell and landed on his left side sustaining a bruise around his left temporal area and sustained a scratch on his left face .As per patient started taking his Lactulose again today and he started having bowel movements .As per patient had a paracentesis done 3 weeks ago and 4L of fluid was removed. Seen and examined patient in the ED awake,alert and coherent with confusion and forgetfulness.Patient denies chest pain,palpitation,cough,abdominal pain ,nausea,vomiting ,bloody emesis and bloody stool. Latest vital signs temperature 98.1, heart rate 79 blood pressure 145/86 and saturation 99% on room air. Labs: WBC 3.1, neutrophils 63, hemoglobin 12, hematocrit 34, platelet count 56. BUN 22, creatinine 0.9, GFR 92 glucose 175, total bili 3.3, ammonia 75, troponin 12 albumin 2.3. Urinalysis significant for glucose above 1000, moderate urine occult blood, urine uro bili Inogen six, urine RBC 6-10, urine WBC 2-5 and hyaline casts 2-5. CT head without contrast result revealed right frontal scalp hematoma measuring 0.3 cm. Chronic microangiopathic ischemic changes. Gliosis and encephalomalacia in the left frontal lobe. Diffuse cerebral atrophy. No acute intracranial hemorrhage or territorial infarct. While in the ER patient received lactulose. We will admit patient for further medical management. HOSPITAL COURSE 05/05 This is a 69-year-old male with past medical history of Hypertension, hyperlipidemia, chronic thrombocytopenia, diabetes type 2, coronary artery disease with CABG x3, esophageal varices requiring banding 2022 and alcoholic liver cirrhosis with recurrent ascites presents to the ED for complaints of altered mental status with increased lethargy over the past 2 days. Marely Phillips was at bedside during my evaluation who states patient has been taking lactulos 3 x daily and patient has been having multiple bouts of BM per day and when home health nurse visited the patient told the nurse about it and was instructed to just take the lactulose as needed so patient had stopped taking for the past 4 days as per and patient became more confused and becoming more weak she said.As per ,around 0130 am patient fell and landed on his left side sustaining a bruise around his left temporal area and sustained a scratch on his left face .As per patient started taking his Lactulose again today and he started having bowel movements .As per patient had a paracentesis done 3 weeks ago and 4L of fluid was removed. Seen and examined patient in the ED awake,alert and coherent with confusion and forgetfulness.Patient denies chest pain,palpitation,cough,abdominal pain ,nausea,vomiting ,bloody emesis and bloody stool. Latest vital signs temperature 98.1, heart rate 79 blood pressure 145/86 and saturation 99% on room air. Labs: WBC 3.1, neutrophils 63, hemoglobin 12, hematocrit 34, platelet count 56. BUN 22, creatinine 0.9, GFR 92 glucose 175, total bili 3.3, ammonia 75, troponin 12 albumin 2.3. Urinalysis significant for glucose above 1000, moderate urine occult blood, urine uro bili Inogen six, urine RBC 6-10, urine WBC 2-5 and hyaline casts 2-5. CT head without contrast result revealed right frontal scalp hematoma measuring 0.3 cm. Chronic microangiopathic ischemic changes. Gliosis and encephalomalacia in the left frontal lobe. Diffuse cerebral atrophy. No acute intracranial hemorrhage or territorial infarct. While in the ER patient received lactulose. We will admit patient for further medical management. 05/06 patient was seen by nurse practitioner and physician during rounding in room 306. As per family members/ at the bedside patient is doing much better today compared to the previous days. Patient normally follows up outpatient with Dr. Jonathan DUMONT for paracentesis. Last paracentesis was scheduled on April 07 and 4 L was removed. The neck is paracentesis is pending May 14 2025. During examination patient is stomach is not distended and patient denies any pain or fullness. To make sure there is no fluids/ascites in the abdominal area we will order CT abdomen/pelvis for further evaluation. Patient continues to be on lactulose t.i.d.. Most recent ammonia level 54. If CT abdomen/pelvis which showed moderate to large ascites we will perform paracentesis by IR and we will consult GI. At this moment I do not see a need to consult anyone since patient already has everything set up outpatient and appointments are made. We will re-evaluate patient tomorrow. A.m. labs 05/07 patient was seen by nurse practitioner and physician during roundings. Patient is very lethargic and disoriented. Family at the bedside. CT abdomen/pelvis came back positive for moderate ascites and cirrhosis platelets are dropping down today at 39. As per family members/ at the bedside patient is normally follows up with production team advisor Dr. Silva. We will consult production team advisor for recommendations/plan. We will also order IR for paracentesis tomorrow 05/08/2025. We will continue to monitor patient in the meantime. A.m. labs. 05/08 patient is seen and examined at bedside, discussed with the RN, no acute events overnight, awake, following commands, having good bowel movements per my discussion with the was at the bedside. Patient is scheduled for paracentesis today by IR. If hemodynamically stable, anticipate discharge home by the end of the day. Patient evaluated by production team advisor, home regimen of from [facility] resumed. Continue lactulose and Xifaxan. Platelet counts better. Can follow up as an outpatient with the production team advisor. PATIENT RETURNED FROM RADIOLOGY DEPARTMENT, PER DISCUSSION WITH THE RN, NOT TOO MUCH ASCITIC FLUID FOR PARACENTESIS. PATIENT ALERT ORIENTED X3, DISCUSSED WITH BOTH THE PATIENT AND THE AT BEDSIDE, OKAY FOR THE PATIENT TO BE DISCHARGED HOME. Assessment/Plan: FINAL DIAGNOSIS Acute hepatic encephalopathy POA Hyperammonemia POA Status post fall injury at home POA Right frontal scalp hematoma POA Gliosis and encephalomalacia in the left frontal lobe per CT POA Acute on chronic thrombocytopenia POA Acute leukopenia POA Liver cirrhosis with recurrent ascites POA Recent paracentesis POA Diabetes POA Hypertension POA Hyperlipidemia POA Mild protein calorie malnutrition Coronary artery disease with CABG x3 POA History of esophageal varices with banding POA Discharge Instructions: PATIENT TO FOLLOW WITH PRIMARY CARE PHYSICIAN AND MASTER BAKER AN OUTPATIENT, RETURN TO THE HOSPITAL IF CONDITION CHANGES. BOTH PATIENT AND AGREED AND UNDERSTOOD THE INFORMATION PROVIDED. Home Medications: Reported Medications Escitalopram Oxalate (Lexapro) 10 Mg Tablet, 10 MG PO DAILY, TAB 05/06/25 Rifaximin (Xifaxan) 550 Mg Tablet, 550 MG PO BID, TAB 05/06/25 Eltrombopag Olamine (Promacta) 50 Mg Tablet, 1 TAB PO DAILY for 30 Days, #30 TAB 0 Refills 05/06/25 Spironolactone (Spironolactone) 100 Mg Tablet, 100 MG PO DAILY, TAB 05/06/25 Carvedilol (Carvedilol) 6.25 Mg Tablet, 1 TAB PO BID for 30 Days, #60 TAB 0 Refills 05/06/25 Ferrous Sulfate (Ferrous Sulfate) 325 Mg (65 Mg Iron) Ectab, 1 TAB PO DAILY for 30 Days, #30 TAB 0 Refills 05/06/25 Ondansetron HCl (Ondansetron HCl) 4 Mg Tablet, 1 TAB PO TID PRN for nausea/vomiting, #10 TAB 0 Refills 05/06/25 Naproxen Sodium (Naproxen Sodium) 220 Mg Capsule, 220 MG PO BID for pain, CAP 05/06/25 Furosemide (Furosemide) 40 Mg Tablet, 1.5 TAB PO DAILY, TAB 0 Refills Take 1 & 1/2 tablets by mouth once a day as directed 05/06/25 [bydureon] No Conflict Check, SQ weekly 04/03/25 Sacubitril/Valsartan (Entresto 24 mg-26 mg Tablet) 24 Mg-26 Mg Tablet, 1 EACH PO BID, TAB 04/03/25 Empagliflozin (Jardiance) 10 Mg Tablet, 10 MG PO AM, TAB 04/03/25 [lactulose] No Conflict Check, 20 GM PO BID PRN for CONSTIPATION 04/03/25 Aspirin (ASPIRIN 81MG CHEW TAB) 81 Mg Tab.chew, 81 MG PO DAILY, TAB.CHEW 08/23/24 Discontinued Reported Medications Lifitegrast (Xiidra) 5 % Droperette, 1 EACH OP TID, DROP 04/03/25 Furosemide (Furosemide) 40 Mg Tablet, 40 MG PO AM, TAB 04/03/25 Eltrombopag Olamine (Promacta) 50 Mg Tablet, 1 TAB PO DAILY for 30 Days, #30 TAB 0 Refills 08/14/24 Time spent arranging discharge: 31-60 minutes YARY HAMMOND MD May 09, 2025 09:00
== END 2025-05-08 17:55 | disposition home or self-care (01) | DRG 442 ==
LOC: EDH 16:52 → EDHIP 22:18 → 3BH 05-06 00:30
PROVIDERS: ADMIT Internal Medicine; ATTEND Internal Medicine
DX: K76.82 Hepatic encephalopathy (principal); E44.1 Mild protein-calorie malnutrition; S00.03XA Contusion of scalp, initial encounter; K70.31 Alcoholic cirrhosis of liver with ascites; G93.89 Other specified disorders of brain; D69.6 Thrombocytopenia, unspecified; D72.819 Decreased white blood cell count, unspecified; E11.65 Type 2 diabetes mellitus with hyperglycemia; I10 Essential (primary) hypertension; D64.9 Anemia, unspecified; I25.10 Atherosclerotic heart disease of native coronary artery without angina pectoris; E78.00 Pure hypercholesterolemia, unspecified; Z82.49 Family history of ischemic heart disease and other diseases of the circulatory system; Z83.3 Family history of diabetes mellitus; Z95.1 Presence of aortocoronary bypass graft; W18.39XA Other fall on same level, initial encounter; Y92.009 Unspecified place in unspecified non-institutional (private) residence as the place of occurrence of the external cause; Y93.89 Activity, other specified; Y99.8 Other external cause status; Z68.26 Body mass index [BMI] 26.0-26.9, adult
CPT/HCPCS: 36415; 70450; 74176; 76705; 80048; 80053; 80076; 81001; 82140; 82948; 83735; 84484; 85025; 93005; 99285; G0378; J3480

== ENCOUNTER → 2025-07-05 | Outpatient (CLI) | payer OTHER ==
[~2025-07-05] MED LIST changes: +CARV6.25 PO; +ESCI10TA PO; +FERS325 PO; -LIFI1DRO5 OP; +NAPR220C62 PO; +ONDA-104 PO; +RIFA550T PO; +SPIR100T5 PO
--- NOTE | 2025-07-05 10:00 | NUR ---
U/S GD PARACENTESIS NOT DONE U/S PERFORMED BY [facility] TENA RDMS. PER DR ROJAS NOT ENOUGH FLUID TO SAFELY PERFORM PROCEDURE. PT AND SPOUSE INFORMED. VERBALIZED UNDERSTANDING. DISCHARGE VIA WHEELCHAIR.
[2025-07-05 10:13] LABS: IMMATURE GRANULOCYTE ABSOLUTE 0.01 K/uL (0-1); NUCLEATED RED BLOOD CELLS 0.0 % (0.0-0.19); PLATELET COUNT (AUTO) 76 K/uL (130-400); RED BLOOD CELL COUNT(AUTO) 2.26 MIL/uL (4.50-6.20); RED CELL DISTRIBUTION WIDTH 16.5 % (11.0-15.5); WHITE BLOOD COUNT (AUTO) 3.1 K/uL (4.8-10.8)
[2025-07-05 10:27] LABS: ASPARTATE AMINOTRANSFERASE 20.0 U/L (10-37); CREATININE 1.3 mg/dL (0.5-1.3); GLOMERULAR FILTR. RATE CALC 59.0 mL/min (>90); GLUCOSE,RANDOM 139.0 mg/dL (70-105); SODIUM SERUM 142.0 mmol/L (136-145); TOTAL PROTEIN, SERUM 5.0 g/dL (6.0-8.3); UREA NITROGEN, BLOOD 28.0 mg/dL (7-18)
[2025-07-05 10:36] LABS: INR 1.28 (0.85-1.15)
--- NOTE | 2025-07-05 14:48 | HMCIMG ---
US ABD LIMITED/ABD WALL HISTORY: ASCITES TECHNIQUE: US ABD LIMITED/ABD WALL. FINDINGS / IMPRESSION: Ultrasound evaluation of the abdomen was performed for ascites. No ascites identified therefore comparison is not performed.. .
== END | disposition home or self-care (01) ==
LOC: RAH 09:16
PROVIDERS: ATTEND Internal Medicine Gastroenterology
DX: R18.8 Other ascites (principal); Z79.01 Long term (current) use of anticoagulants
CPT/HCPCS: 36415; 76705; 80053; 85025; 85610; 85730